=== PATIENT | female | born 1950 | race Caucasian/White ===

== ENCOUNTER 2020-05-13 15:15 | Inpatient (IN) | payer MEDICARE, OTHER, SELFPAY ==
[2020-05-13] VITALS (8 sets, daily range): BP systolic 102–123; BP diastolic 53–90; PULSE 71–120; RESP 16–28; TEMP 37–37.1; O2SAT 87–96; BMI 24.1
--- NOTE | ~2020-05-13 | XR_ITS ---
EXAMINATION: XR CHEST CLINICAL INFORMATION: Hypoxia. COMPARISON: CTA chest dated 05/13/2020. TECHNIQUE: Frontal view of the chest was obtained. FINDINGS: Small bilateral pleural effusions, significantly decreased when compared to the prior examination. Adjacent atelectasis versus infiltrates. No pneumothorax. Stable cardiomediastinal silhouette. XR/XR chest 1V IMPRESSION: Small bilateral pleural effusions with adjacent atelectasis versus infiltrates, decreased when compared to the recent chest CT.
--- NOTE | ~2020-05-13 | XR_ITS ---
EXAMINATION: XR FOOT, RIGHT CLINICAL INFORMATION: Distal gangrene. Concern for bone erosion. COMPARISON: None TECHNIQUE: 2 views of the right foot. FINDINGS: There is soft tissue swelling at the great toe. There is almost complete loss of bone of the distal phalange of the great toe. The distal phalanges is subluxed dorsally. There is also bone erosion of the proximal phalanges at the IP joint at the medial side of the bone consistent with osteomyelitis. This portion of bone lies adjacent to the skin surface and there may be ulceration of the skin in this area. Clinically correlate. XR/XR foot RT 2V IMPRESSION: Loss of bone of the distal phalanx and focal erosion of the proximal phalanx of great toe consistent with osteomyelitis.
--- NOTE | ~2020-05-13 | US_ITS ---
EXAMINATION: ULTRASOUND-GUIDED RIGHT THORACENTESIS. CLINICAL INFORMATION: Bilateral pleural effusion right greater than left. COMPARISON: CT chest 05/22/2020 TECHNIQUE: Following explaining ultrasound-guided thoracentesis procedure, benefits and risk, a written consent was obtained. Patient was placed upright sitting on ultrasound stretcher and preliminary ultrasound imaging was obtained through both posterior chest. There was increased fluid seen in the right chest. An appropriate site was selected and marked on the right posterior chest along the infrascapular line. The marked site was cleaned and draped in usual sterile manner. 1% lidocaine was injected at puncture site. Through a small skin incision a 5 [place] StepsAway catheter was advanced into right pleural fluid. After observing fluid return, a 50 mL syringe was attached and fluid aspirated for laboratory evaluation. Subsequently the catheter was connected to vacuum bottle via connecting cannula. After obtaining all fluid and observing no fluid remaining by ultrasound, catheter was withdrawn making sure no air leaked in by application of gauze coated with ultrasound gel. The area around the puncture site was cleaned and a sterile Band-Aid applied. Patient tolerated procedure extremely well. A chest x-ray inspiration and expiration was to be obtained portably. FINDINGS: On preliminary ultrasound imaging there is bilateral moderate pleural effusions right greater than left. Ultrasound-guided right thoracentesis performed with approximately 1000 mL of clear yellowish fluid was removed. Some of this fluid was sent to lab as requested by referring physician. US/US thoracentesis IMPRESSION: Successful ultrasound-guided right thoracentesis performed. There are no immediate complications.
--- NOTE | ~2020-05-13 | XR_ITS ---
EXAMINATION: XR CHEST CLINICAL INFORMATION: Shortness of breath. COMPARISON: Chest 04/30/2017 TECHNIQUE: Frontal view of the chest was obtained. FINDINGS: There is bibasilar haziness likely greater on the right from pleural effusion and underlying atelectasis. There is minimal bilateral apical parenchymal scarring and apical pleural thickening. The upper lungs are clear. Heart size and pulmonary vascularity is normal. No gross bony abnormality seen. XR/XR chest 1V IMPRESSION: Bilateral pleural effusions slightly greater on the right with underlying atelectasis.
--- NOTE | ~2020-05-13 | CT_ITS ---
EXAMINATION: CT ANGIOGRAM OF THE CHEST WITH AND WITHOUT CONTRAST (CT PULMONARY ANGIOGRAM FOR PE) CLINICAL INFORMATION: Evaluate for persistent hypoxia. Rule out PE. COMPARISON: Chest x-ray earlier today. CTA chest 05/13/2020 TECHNIQUE: Prior to contrast administration, noncontrast localization images were obtained. Subsequently, multidetector volumetric imaging was performed from the thoracic inlet to below the diaphragms following the administration of 65 mL Omnipaque 350 intravenous contrast. No contrast reaction reported Sagittal, coronal, and MIP oblique sagittal reformatted images were obtained on the CT workstation, uploaded to PACS, and reviewed. This CT examination was performed using dose optimization techniques as appropriate, variously including the following: *Automated exposure control *Adjustment of mA and/or kV according to patient size (this includes techniques or standardized protocols for targeted exams where dose is matched to indication/reason for exam; i.e. extremities or head) *Use of iterative reconstruction technique Total exam dose-length product 283 mGy-cm FINDINGS: QUALITY OF STUDY/CONTRAST BOLUS: Fair. PULMONARY ARTERIES: No central pulmonary embolus. There is contrast underfilling of the distal pulmonary arteries particularly to the lower lobes but no filling defects seen. THORACIC AORTA: There is poor contrast opacification of the thoracic aorta but no aneurysm or dissection. LUNG: Again seen is a background of severe emphysema with worsening near complete collapse of the right lower lobe and similar atelectasis of the left lower lobe. . PLEURA: Moderate bilateral pleural effusions, right greater than left, similar on the right, slightly increased on the left. MEDIASTINUM: Heart size upper limits of normal. The right atrium and right ventricle are significantly enlarged. No hilar or mediastinal lymphadenopathy. No evidence of septal bowing or right heart strain. CHEST WALL/AXILLA: There is contrast opacification of innumerable collaterals in the left chest and mediastinum. No axillary lymphadenopathy. Severe anasarca with a large volume of fluid partially imaged along the upper abdomen/lower chest bilaterally. OSSEOUS STRUCTURES: Multilevel degenerative changes. No acute or suspicious osseous abnormality. UPPER ABDOMEN: Small volume of ascites is present adjacent the liver. The liver has a nodular contour consistent with cirrhosis. There is reflux of contrast into the IVC hepatic veins suggesting elevated right heart pressures. CT/CT angio chest IMPRESSION: No pulmonary embolus seen. Moderate bilateral pleural effusions, similar on the right, slightly increased on the left. There is worsened near complete collapse of the right lower lobe and a similar degree of atelectasis of the left lower lobe. There is reflux of contrast into the hepatic veins consistent with elevated right heart pressures. Moreover, there is right atrial and ventricular enlargement. Also seen is evidence of third spacing with ascites and anasarca. VTE: negative
--- NOTE | ~2020-05-13 | CT_ITS ---
EXAMINATION: CT ANGIOGRAM OF THE CHEST WITH AND WITHOUT CONTRAST (CT PULMONARY ANGIOGRAM FOR PE) CLINICAL INFORMATION: Reason for Exam sob ?PE COMPARISON: Chest radiograph earlier today TECHNIQUE: Prior to contrast administration, noncontrast localization images were obtained. Subsequently, multidetector volumetric imaging was performed from the thoracic inlet to below the diaphragms following the administration of 57 mL Omnipaque 350 intravenous contrast. No contrast reaction reported Sagittal, coronal, and MIP oblique sagittal reformatted images were obtained on the CT workstation, uploaded to PACS, and reviewed. This CT examination was performed using dose optimization techniques as appropriate, variously including the following: *Automated exposure control *Adjustment of mA and/or kV according to patient size (this includes techniques or standardized protocols for targeted exams where dose is matched to indication/reason for exam; i.e. extremities or head) *Use of iterative reconstruction technique Total exam dose-length product 681 mGy-cm FINDINGS: QUALITY OF STUDY/CONTRAST BOLUS: Satisfactory. PULMONARY ARTERIES: No central or segmental pulmonary emboli. THORACIC AORTA: No aneurysm or dissection. LUNG: Changes of COPD are present. In addition, some interstitial prominence is seen along with prominent septa, suggesting underlying edema PLEURA: Moderate sized bilateral pleural effusions are present MEDIASTINUM: There is mild cardiac enlargement. With a markedly enlarged right atrium and right ventricle. No pericardial effusion. No hilar or mediastinal lymphadenopathy. No evidence of septal bowing or right heart strain. CHEST WALL/AXILLA: No axillary or internal mammary lymphadenopathy. OSSEOUS STRUCTURES: No acute or suspicious osseous abnormality. UPPER ABDOMEN: Unremarkable. There is moderate reflux of contrast into the IVC hepatic veins suggesting elevated right heart pressures. CT/CT angio chest PE protocol IMPRESSION: 1. No pulmonary emboli 2. COPD with cardiomegaly and interstitial edema raising question of CHF 3. Markedly enlarged right atria right ventricle with reflux of contrast into the IVC and hepatic veins consistent with elevated right heart pressures VTE: negative
--- NOTE | ~2020-05-13 | XR_ITS ---
EXAMINATION: XR CHEST CLINICAL INFORMATION: Post right thoracentesis. COMPARISON: CT chest 05/22/2020 TECHNIQUE: 2 views of the chest were obtained. FINDINGS: Status post right thoracentesis with complete resolution of pleural effusion. There is no visible pneumothorax. There is a [id number] left pleural effusion with underlying atelectasis. The heart size and pulmonary vascularity is normal. No gross bony abnormality seen. XR/XR chest 2V IMPRESSION: Status post right thoracentesis. There is no visible pneumothorax. There right pleural effusion has resolved. There is a left-sided small pleural effusion with underlying atelectasis, unchanged to previous study.
--- NOTE | ~2020-05-13 | XR_ITS ---
EXAMINATION: XR CHEST CLINICAL INFORMATION: Persistent hypoxia. COMPARISON: Chest 05/14/2020 TECHNIQUE: Frontal view of the chest was obtained. FINDINGS: There are bilateral pleural effusions right greater than left with bibasilar atelectasis. Upper lungs are clear. The heart size is normal. Pulmonary vascularity is normal. No gross bony abnormality seen. XR/XR chest 1V IMPRESSION: Small bilateral pleural effusions right greater than left with bibasilar atelectasis. No major change from 05/14/2020.
--- NOTE | ~2020-05-13 | US_ITS ---
EXAMINATION: US NONINVASIVE ASSESSMENT OF THE BILATERAL LOWER EXTREMITIES WITH ARTERIAL DUPLEX AND ANKLE BRACHIAL INDICES (ABIS) CLINICAL INFORMATION: Nonhealing ulcer COMPARISON: None TECHNIQUE: Duplex Doppler techniques with waveform analysis and measurement of velocities in the common femoral, profunda femoris, superficial femoral, popliteal and tibial arteries were performed. In addition, ankle pulse volume recordings, ankle pressure measurements and ankle brachial indices were obtained of the left lower extremity arterial system. The study was performed only at rest. FINDINGS: NONINVASIVE ASSESSMENT OF THE ARTERIES OF BILATERAL LOWER EXTREMITIES WITH ABIs: RIGHT LEG: Ankle-brachial index: 0.99 Ankle PVR: Abnormal BRONSON Reference: 0.9 - 1.4 = normal - no significant arterial disease 0.7 - 0.89 = mild peripheral arterial disease 0.51 - 0.69 = moderate peripheral arterial disease ? 0.50 = severe peripheral arterial disease RIGHT LOWER EXTREMITY DUPLEX ULTRASOUND: Common femoral artery: 93.8 cm/s. Diastolic flow reversal: Triphasic Profunda femoris artery: 79.1 cm/s. Diastolic flow reversal: Triphasic Superficial femoral artery (proximal): 51.1 cm/s. Diastolic flow reversal: Triphasic Superficial femoral artery (mid): 66.3 cm/s. Diastolic flow reversal: Triphasic Superficial femoral artery (distal): 59.9 cm/s. Diastolic flow reversal: Triphasic Popliteal artery: 27.6 cm/s Diastolic flow reversal: Triphasic Posterior tibial artery: 24.4 cm/s Diastolic flow reversal: Monophasic LEFT LEG: Ankle-brachial index: 0.85 Left ankle PVR: Abnormal BRONSON Reference: 0.9 - 1.4 = normal - no significant arterial disease 0.7 - 0.89 = mild peripheral arterial disease 0.51 - 0.69 = moderate peripheral arterial disease ? 0.50 = severe peripheral arterial disease LEFT LOWER EXTREMITY DUPLEX ULTRASOUND: Common femoral artery: 78.8 cm/s. Diastolic flow reversal: Triphasic Profunda femoris artery: 56.4 cm/s. Diastolic flow reversal: Triphasic Superficial femoral artery (proximal): 58.8 cm/s. Diastolic flow reversal: Triphasic Superficial femoral artery (mid): 69.0 cm/s. Diastolic flow reversal: Triphasic Superficial femoral artery (distal): 37.0 cm/s. Diastolic flow reversal: Triphasic Popliteal artery: 29.9 cm/s Diastolic flow reversal: Triphasic Posterior tibial artery: 12.4 cm/s Diastolic flow reversal: Monophasic US/US arterial duplex LE BI IMPRESSION: 1. The arteries to the lower extremities are patent bilaterally. 2. BRONSON on the right is normal at 0.99. BRONSON on the left demonstrates mild peripheral arterial disease at 0.85.
--- NOTE | 2020-05-13 15:30 | PC.NURSE ---
pt from home for shortness of breath. She arrives wearing thin cotton gloves. Gloves are removed to reveal necrotic fingers, Index finger and thumb of left hand intact but purple, other fingers are shriveled or missing. Right hand ring finger shriveled, other fingers and thumb intact but purple/blue in color. Pt has socks covering toes, swelling of bilateral lower extremities with redness. Great toes to bilateral feet are black with bone visible. All remaining toes to right foot are black with redness surrounding. Toes of left foot same as right, black with redness extending from toes into foot. Oxygen saturation 86% on 4 liters, pt reports shortness of breath. She is very anxious.
--- NOTE | 2020-05-13 15:50 | ECG_ITS ---
Test Reason : WEAKNESS Blood Pressure : / mmHG Vent. Rate : 110 BPM Atrial Rate : 110 BPM P-R Int : 136 ms QRS Dur : 080 ms QT Int : 320 ms P-R-T Axes : 070 136 024 degrees QTc Int : 433 ms Poor data quality Sinus tachycardia with Fusion complexes Right axis deviation Pulmonary disease pattern Possible Right ventricular hypertrophy Septal infarct , age undetermined Abnormal ECG No previous ECGs available Referred By: Nikolay Caal Electronically Signed By:JT LOPEZ MD
[2020-05-13 16:12] LABS: MANUAL DIFF FLAG NO
[2020-05-13 16:18] LABS: Basophils Absolute Auto 0.1 X10*3/uL (0.0-0.2); Basophils Percent Auto 0.5 % (0-2); Eosinophils Absolute Auto 0.1 X10*3/uL (0.0-0.4); Eosinophils Percent Auto 0.7 % (0-4); Hematocrit 48.2 % (37-47); Imm Gran Abs Auto 0.07 X10*3/uL (0.00-0.03); Imm Gran Pct Auto 0.6 % (0.0-0.4); Lymphocytes Absolute Auto 1.2 X10*3/uL (1.2-4.9); Lymphocytes Percent Auto 10.4 % (20-40); Mean Corpuscular HGB Conc 31.1 g/dl (31.0-35.0); Mean Corpuscular Hemoglobin 29.8 pg (27.0-33.0); Mean Corpuscular Volume 95.8 fL (80-98); Mean Platelet Volume 10.6 fL (9.4-12.3); Monocytes Absolute Auto 0.7 X10*3/uL (0.1-1.2); Monocytes Percent Auto 6.1 % (2-11); NRBC Pct Auto 0.3 /100WBC (0.0-0.2); Neutrophils Percent Auto 81.7 % (45-73); Platelet Count 441 X10*3/uL (160-400); Red Blood Count 5.03 X10*6/uL (4.20-5.50); Red Cell Distribution Width 15.9 % (11.0-16.0)
[2020-05-13] MEDS: LORazepam 2 MG/ML VIAL 1 MG IVPUSH ×2 (16:24→18:33)
[2020-05-13 16:31] LABS: INTERNATIONAL NORM RATIO 1.3 (0.9-1.1); Prothrombin Time 15.1 SEC (10.8-13.0)
[2020-05-13 16:33] LABS: Partial Thromboplastin Time 38.6 SEC (24.1-38.0)
[2020-05-13 16:35] LABS: COVID-19 Test Negative (Negative); IDNOW Serial# 9DD0AD1C
[2020-05-13 16:40] LABS: Alanine Aminotransferase 15 U/L (0-31); Albumin Level 3.3 g/dL (3.5-5.0); Alkaline Phosphatase 250 U/L (39-117); Anion Gap 16 (12-20); Aspartate Amino Transferase 26 U/L (5-31); Bilirubin Total 0.8 mg/dL (0.0-1.0); Blood Urea Nitrogen 30 mg/dL (9-16); Calcium 9.1 mg/dL (8.4-10.2); Carbon Dioxide 20 mmol/L (22-29); Chloride 109 mmol/L (96-108); Creatinine Clr Calc Pharmacy 43.2; Estimated Glomerular Filt Rate 51; Glucose Random 116 mg/dL (60-115); Potassium 4.9 mmol/L (3.3-5.1); Sodium 140 mmol/L (135-145)
[2020-05-13 16:55] LABS: Troponin-I High Sensitivity 40.9 ng/L (<3.5-17.0)
[2020-05-13 16:56] LABS: Lactic Acid 2.4 mmol/L (0.5-2.0)
--- NOTE | 2020-05-13 17:53 | ED.GENADULT ---
HPI - General Adult General Chief complaint: Dyspnea Stated complaint: diff breathing Time Seen by Provider: 05/13/20 15:49 Source: patient Mode of arrival: EMS Limitations: no limitations History of Present Illness HPI narrative: 69-year-old female who presents emergency department for evaluation of shortness of breath. The patient states she has had intermittent shortness of breath for approximately 1 and half weeks. She states that today at around 1:00 p.m. she was eating lunch, shortly after eating she became short of breath. She states that the shortness of breath persisted and got worse, she became anxious and called an ambulance. She denied fever, chills, chest pain, nausea, vomiting, abdominal pain, myalgias, arthralgias, change in her bowel movements. 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 She states that her necrotic toes have not changed and that they are not bothering her in any way. Related Data Allergies Allergy/AdvReac Type Severity Reaction Status Date / Time No Known Allergies Allergy Verified 05/13/20 15:49 Review of Systems Review of Systems: Yes all other systems are reviewed and are negative PMFSH Past Medical History PMF Narrative: The patient lives with her family. She states that she is a former smoker and stop smoking 3 years prior, she has a greater than 20 pack-year history of smoking, she drinks 1 glass of wine with dinner daily, she denies drug use. 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 Social History Social History Alcohol intake: former Smoking Status: Former smoker Smoked in Last 30 Days: No Use of substances other than those prescribed or required for medical reasons: No Advance Directives: No Advance Directives Information Provided: No Physical Exam Vital Signs: Vital Signs: Last Vital Signs Temp 98.8 F 05/13/20 15:23 Pulse 71 05/13/20 17:50 Resp 16 05/13/20 17:50 BP 112/53 L 05/13/20 17:50 Pulse Ox 92 05/13/20 17:50 Body Mass Index 24.1 Const: General: cooperative Orientation/consciousness: oriented to person and oriented to place Limitations: no limitations HENMT: Head: Yes normal to inspection, Yes normocephalic and Yes atraumatic Ears: external ears normal General nose exam: Normal external nose present Face and sinus: Yes normal facial exam Mouth: Normal oral and palatal mucosa present Throat: Yes posterior oropharynx normal Eyes: Periorbital: periorbital findings normal Eyelids: Yes eyelids normal Conjunctivae: conjunctivae normal Sclerae: sclerae normal Corneas: corneas normal Pupils: Equal, round and reactive pupils present Direct Ophthalmoscopy: normal light reflex Neck: Neck: Yes full ROM, Yes no lymphadenopathy, Yes no meningeal signs, Yes trachea midline and Yes supple Chest: Chest palpation & inspection: normal inspection of the chest and normal palpation of entire chest wall Resp: Effort & Inspection: normal respiratory effort and able to speak in complete sentences Auscultation: clear to auscultation bilaterally Cardio: Rate: regular rate Rhythm: regular rhythm Heart sounds: S1 normal heart sound present, S2 normal heart sound present and no murmurs GI: Inspection: Yes normal to inspection Palpation (GI): Soft to palpation, nontender, no guarding, not rigid and No hepatosplenomegaly present : General: Yes no CVA tenderness Back/Spine/Pelvis: Back: no CVA tenderness Cervical Spine: normal cervical lordosis Thoracic/Lumbar Spine: thoracic and lumbar spine normal to inspection Skin: Lesions: no lesions Rashes: no rashes Wounds: no wounds Neuro: General: oriented to person, oriented to place and no meningeal signs Cranial nerves: Yes CN's II-XII intact bilaterally and Yes Equal, round and reactive pupils present Cognition (Neuro): normal cognition Motor exam (neuro): 5/5 motor strength present throughout Extrem: Other: The patient has damage to the fingers of her hand and 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 Patient's physical examination did reveal pitting edema and rales at the bases. I ordered a cardiac and septic workup on the patient. The patient does appear to be anxious and she was ordered to get Ativan 1 mg IV. 1818: the patient's laboratory evaluation [place] [address], elevated platelet count of 414,000. BUN was elevated at 30 with a normal creatinine of 1.06. Lactic acid was elevated 2.4. Alk-phos is elevated to 50. Troponin was elevated at 40.9. Repeat 3 hour troponin is pending. The patient's concerning for bilateral pleural effusions, given her peripheral edema I suspect that she has pulmonary edema however I will obtain a CT angiogram PE protocol to rule out pulmonary embolism. The patient did get some improvement with Ativan 1 mg IV, her anxiety is returning therefore she was ordered to get Ativan 0.5 mg IV. At the end of my shift, the CT scan is pending, the patient's care was turned over to my colleague, Dr. Kent. Medical Decision Making Lab Data Result diagrams: 05/13/20 16:03 05/13/20 16:03 Labs: Lab Results 05/13/20 05/13/20 05/13/20 Range/Units 16:03 16:03 16:03 WBC 11.0 H (4.8-10.8) X10*3/uL RBC 5.03 (4.20-5.50) X10*6/uL Hgb 15.0 (12.0-16.0) g/dl Hct 48.2 H (37-47) % MCV 95.8 (80-98) fL MCH 29.8 (27.0-33.0) pg MCHC 31.1 (31.0-35.0) g/dl RDW 15.9 (11.0-16.0) % Plt Count 441 H (160-400) X10*3/uL MPV 10.6 (9.4-12.3) fL Immature Gran % (Auto) 0.6 H (0.0-0.4) % Neut % (Auto) 81.7 H (45-73) % Lymph % (Auto) 10.4 L (20-40) % [place] % (Auto) 6.1 (2-11) % Eos % (Auto) 0.7 (0-4) % Baso % (Auto) 0.5 (0-2) % Lymph # (Auto) 1.2 (1.2-4.9) X10*3/uL [place] # (Auto) 0.7 (0.1-1.2) X10*3/uL Eos # (Auto) 0.1 (0.0-0.4) X10*3/uL Baso # (Auto) 0.1 (0.0-0.2) X10*3/uL Abs Immat Gran (auto) 0.07 H (0.00-0.03) X10*3/uL Absolute Neuts (auto) 9.0 H (2.0-8.3) X10*3/uL Absolute Nucleated RBC 0.030 H (0.0-0.012) X10*3/uL Nucleated RBC % (auto) 0.3 H (0.0-0.2) /100WBC PT 15.1 H (10.8-13.0) SEC INR 1.3 H (0.9-1.1) APTT 38.6 H (24.1-38.0) SEC Sodium 140 (135-145) mmol/L Potassium 4.9 (3.3-5.1) mmol/L Chloride 109 H (96-108) mmol/L Carbon Dioxide 20 L (22-29) mmol/L Anion Gap 16 (12-20) BUN 30 H (9-16) mg/dL Creatinine 1.06 (0.5-1.4) mg/dL Estim Creat Clear Calc 43.2 Estimated GFR 51 Random Glucose 116 H (60-115) mg/dL Lactic Acid (0.5-2.0) mmol/L Calcium 9.1 (8.4-10.2) mg/dL Total Bilirubin 0.8 (0.0-1.0) mg/dL AST 26 (5-31) U/L ALT 15 (0-31) U/L Alkaline Phosphatase 250 H (39-117) U/L Troponin I High Sens (<3.5-17.0) ng/L Total Protein 7.0 (6.5-8.0) g/dL Albumin 3.3 L (3.5-5.0) g/dL COVID-19 (TAZ) (Negative) COVID-19 Clin Com 05/13/20 05/13/20 05/13/20 Range/Units 16:03 16:03 16:03 WBC (4.8-10.8) X10*3/uL RBC (4.20-5.50) X10*6/uL Hgb (12.0-16.0) g/dl Hct (37-47) % MCV (80-98) fL MCH (27.0-33.0) pg MCHC (31.0-35.0) g/dl RDW (11.0-16.0) % Plt Count (160-400) X10*3/uL MPV (9.4-12.3) fL Immature Gran % (Auto) (0.0-0.4) % Neut % (Auto) (45-73) % Lymph % (Auto) (20-40) % [place] % (Auto) (2-11) % Eos % (Auto) (0-4) % Baso % (Auto) (0-2) % Lymph # (Auto) (1.2-4.9) X10*3/uL [place] # (Auto) (0.1-1.2) X10*3/uL Eos # (Auto) (0.0-0.4) X10*3/uL Baso # (Auto) (0.0-0.2) X10*3/uL Abs Immat Gran (auto) (0.00-0.03) X10*3/uL Absolute Neuts (auto) (2.0-8.3) X10*3/uL Absolute Nucleated RBC (0.0-0.012) X10*3/uL Nucleated RBC % (auto) (0.0-0.2) /100WBC PT (10.8-13.0) SEC INR (0.9-1.1) APTT (24.1-38.0) SEC Sodium (135-145) mmol/L Potassium (3.3-5.1) mmol/L Chloride (96-108) mmol/L Carbon Dioxide (22-29) mmol/L Anion Gap (12-20) BUN (9-16) mg/dL Creatinine (0.5-1.4) mg/dL Estim Creat Clear Calc Estimated GFR Random Glucose (60-115) mg/dL Lactic Acid 2.4 H* (0.5-2.0) mmol/L Calcium (8.4-10.2) mg/dL Total Bilirubin (0.0-1.0) mg/dL AST (5-31) U/L ALT (0-31) U/L Alkaline Phosphatase (39-117) U/L Troponin I High Sens 40.9 H (<3.5-17.0) ng/L Total Protein (6.5-8.0) g/dL Albumin (3.5-5.0) g/dL COVID-19 (TAZ) Negative (Negative) COVID-19 Clin Com See Note
[2020-05-13 18:09] LABS: Reflex Lactate? Lactic Acid Added
[2020-05-13] MEDS: Furosemide 20 MG/2 ML VIAL IVPUSH (18:33)
--- NOTE | 2020-05-13 18:43 | PC.NURSE ---
son at bedside, pt awake, drowsy after medication with ativan. VS stable.
[2020-05-13 19:22] LABS: B Type Natriuretic Peptide 1310 pg/mL (<100)
--- NOTE | 2020-05-13 19:33 | PC.NURSE ---
PT CHANGED OUT OF HEAVILY SOAKED BRIEF FROM HOME. LINEN UNDERNEATH HER CHANGED.
[2020-05-13 20:20] LABS: Troponin-I High Sensitivity 37.9 ng/L (<3.5-17.0); ~Lactic Acid-LAB USE ONLY 2.1 mmol/L (0.5-2.0)
--- NOTE | 2020-05-13 20:42 | PC.NURSE ---
alba placed, need to monitor output following lasix. pt off unit to ct scan. difficulty obtaining labs. pt's spo2 sensor on forehead, extremities cool. pt's spo2 60's but not a reliable waveform. pt repositioned upright and spo2 improved to 86%. pt's o2 increased to 6lpm and spo2 improved to 95%.
[2020-05-13 21:01] LABS: Glucose Urine UA NEG (NEG); Leukocyte Esterase Urine NEG (NEG); Nitrite Urine NEG (NEG); PH 5.5 (5.0-8.0); Specific Gravity - Urine 1.015 (1.005-1.025); Urine Blood NEG (NEG); Urine Ketones NEG (NEG); Urine Protein NEG (NEG-TRACE)
[2020-05-13 21:08] LABS: Appearance Urine CLEAR; Color Urine YELLOW
[2020-05-13 21:10] LABS: Venous Blood Gas Refer to POC result
[2020-05-13 21:11] LABS: VBG Base Excess -4.8 mmol/L; VBG HCO3 17 mmol/L (22-26); VBG pCO2 26 mmHg; VBG pH 7.42 (7.32-7.43); VBG pO2 50 mmHg
[2020-05-13 21:22] LABS: Reflex Lactate? 2 Y
--- NOTE | 2020-05-13 21:33 | PC.NURSE ---
difficult to obtain accurate spo2 on patient. pt's spo2 improves when repositioned to upright seated position.
[2020-05-13] MEDS: Piperacillin Sodium/Tazobactam 3.375 GM in 0.9 % Sodium Chloride 50 ML IV (22:22)
[2020-05-13] MEDS: methylPREDNISolone Sod Succ 125 MG/2 ML VIAL IVPUSH (23:06)
--- NOTE | 2020-05-13 23:10 | PM.IMHP ---
History of Present Illness Date of Service: 05/13/20 Chief Complaint: SOB 69-year-old female with a past medical history of Buerger disease, 20 pack-year history of smoking, gangrene of toes and fingers; COPD, presented to the hospital with chief complaint of shortness of breath. Patient is a poor historian. Patient reported that over the past 1-2 weeks he has been having shortness of breath which has been gradually worsening associated dyspnea on exertion. Denies any chest pain lightheadedness dizziness. Today she had severe shortness of breath hence decided to come to the hospital for further help. Patient mentions she has been having gangrene of her toes and fingers and has not been bothering her. Denies any fever chills cough. Denies any recent travel sick contacts. Denies any GI or symptoms. Review of all other systems is negative except mentioned above ER course: For ER team patient noted to be tachypneic and hypoxic on presentation requiring supplemental oxygen; patient had chest x-ray which showed bilateral pleural effusion; CT angio of the chest was done which showed no evidence of pulmonary embolism but noted findings consistent with CHF/right heart pressures- Patient was given Lasix, albuterol nebulizations, Solu-Medrol. Patient noted to have elevated lactate; x-ray of the foot showed findings consistent with osteomyelitis and mild soft tissue swelling. Patient was given Zosyn and blood cultures were sent. Admitted to the hospital for further management. [facility] Medical History Talamantes disease Osteomyelitis Pleural effusion Social History Household Members: Family Housing: Apartment Alcohol intake: former Smoking Status: Former smoker service: No Current occupational status: retired Meds Allergies Allergy/AdvReac Type Severity Reaction Status Date / Time No Known Allergies Allergy Verified 05/13/20 15:49 Active Medications: Current Medications Generic Name Dose Route Start Last Admin Trade Name Freq PRN Reason Stop Dose Admin Acetaminophen 650 mg 05/13/20 23:02 Acetaminophen 325 Mg Tablet PO Q6H PRN Pain, Mild (Pain Scale 1-3) Albuterol/Ipratropium 3 ml 05/14/20 08:00 Albuterol/Iprat 2.5/0.5mg 3 Ml Ampul.Neb INHALE RQ6H WHILE AWAKE [place] Albuterol/Ipratropium 3 ml 05/14/20 08:00 Albuterol/Iprat 2.5/0.5mg 3 Ml Ampul.Neb INHALE RQ4H WHILE AWAKE [place] Heparin Sodium (Porcine) 5,000 unit 05/13/20 23:15 Heparin Sodium,Porcine 5,000 Unit/Ml Vial SUBCUT Q8H [facility] Piperacillin Sod/Tazobactam 50 mls @ 100 mls/hr 05/13/20 23:15 Sod 3.375 gm/ Sodium Chloride IV Q6H [facility] Sodium Chloride 3 ml 05/14/20 00:00 0.9 % Sodium Chloride Flush 3 Ml Syringe IVFLUSH QSHIFT [facility] Home Medications Medication Instructions Recorded Confirmed Last Taken Type aspirin 81 mg PO DAILY 05/13/20 05/13/20 Unknown History Physical Exam Vital Signs and Narrative: Vital Signs: Last Vital Signs Temp 98.7 F 05/13/20 21:25 Pulse 114 H 05/13/20 22:38 Resp 28 H 05/13/20 22:38 BP 119/81 05/13/20 22:38 Pulse Ox 87 L 05/13/20 22:38 Body Mass Index 24.1 Gen: Appears be in no acute distress; speaks in full sentences HEENT: NCAT, Moist mucosa. Pulmonary: Slightly diminished breath sounds CVS: Normal S1-S2 Abdomen: BS+, Soft, Nontender Extremities: Warm well perfused; noted gangrene of the toes and fingers.; loaded soft tissue swelling around the toes. No crepitus noticed. Neuro: Alert and awake. Grossly nonfocal Results Labs CBC and Chem 7: 05/21/20 06:14 05/23/20 06:21 Labs: Laboratory Results - last 24 hr 05/13/20 05/13/20 05/13/20 16:03 16:03 16:03 MCV 95.8 MCH 29.8 MCHC 31.1 RDW 15.9 Plt Count 441 H MPV 10.6 Immature Gran % (Auto) 0.6 H Neut % (Auto) 81.7 H Lymph % (Auto) 10.4 L [place] % (Auto) 6.1 Eos % (Auto) 0.7 Baso % (Auto) 0.5 Lymph # (Auto) 1.2 [place] # (Auto) 0.7 Eos # (Auto) 0.1 Baso # (Auto) 0.1 Abs Immat Gran (auto) 0.07 H Absolute Neuts (auto) 9.0 H Absolute Nucleated RBC 0.030 H Nucleated RBC % (auto) 0.3 H PT 15.1 H INR 1.3 H APTT 38.6 H VBG pH VBG pCO2 VBG pO2 VBG HCO3 VBG O2 Saturation VBG Base Excess Anion Gap 16 Estim Creat Clear Calc 43.2 Estimated GFR 51 Random Glucose 116 H Lactic Acid Lactic Acid Fup @ 2Hr Calcium 9.1 Total Bilirubin 0.8 AST 26 ALT 15 Alkaline Phosphatase 250 H Troponin I High Sens B-Natriuretic Peptide Total Protein 7.0 Albumin 3.3 L Urine Color Urine Appearance Urine pH Ur Specific [place] Urine Protein Urine Glucose (UA) Urine Ketones Urine Blood Urine Nitrite Ur Leukocyte Esterase COVID-19 (TAZ) COVID-Phot[employer]lect 05/13/20 05/13/20 05/13/20 16:03 16:03 16:03 MCV MCH MCHC RDW Plt Count MPV Immature Gran % (Auto) Neut % (Auto) Lymph % (Auto) [place] % (Auto) Eos % (Auto) Baso % (Auto) Lymph # (Auto) [place] # (Auto) Eos # (Auto) Baso # (Auto) Abs Immat Gran (auto) Absolute Neuts (auto) Absolute Nucleated RBC Nucleated RBC % (auto) PT INR APTT VBG pH VBG pCO2 VBG pO2 VBG HCO3 VBG O2 Saturation VBG Base Excess Anion Gap Estim Creat Clear Calc Estimated GFR Random Glucose Lactic Acid 2.4 H* Lactic Acid Fup @ 2Hr Calcium Total Bilirubin AST ALT Alkaline Phosphatase Troponin I High Sens 40.9 H B-Natriuretic Peptide 1310 H Total Protein Albumin Urine Color Urine Appearance Urine pH Ur Specific [place] Urine Protein Urine Glucose (UA) Urine Ketones Urine Blood Urine Nitrite Ur Leukocyte Esterase COVID-19 (TAZ) Negative COVID-19 [employer] See Note 05/13/20 05/13/20 05/13/20 18:56 18:56 20:52 MCV MCH MCHC RDW Plt Count MPV Immature Gran % (Auto) Neut % (Auto) Lymph % (Auto) [place] % (Auto) Eos % (Auto) Baso % (Auto) Lymph # (Auto) [place] # (Auto) Eos # (Auto) Baso # (Auto) Abs Immat Gran (auto) Absolute Neuts (auto) Absolute Nucleated RBC Nucleated RBC % (auto) PT INR APTT VBG pH VBG pCO2 VBG pO2 VBG HCO3 VBG O2 Saturation VBG Base Excess Anion Gap Estim Creat Clear Calc Estimated GFR Random Glucose Lactic Acid Lactic Acid Fup @ 2Hr 2.1 H* Calcium Total Bilirubin AST ALT Alkaline Phosphatase Troponin I High Sens 37.9 H B-Natriuretic Peptide Total Protein Albumin Urine Color YELLOW Urine Appearance CLEAR Urine pH 5.5 Ur Specific [place] 1.015 Urine Protein NEG Urine Glucose (UA) NEG Urine Ketones NEG Urine Blood NEG Urine Nitrite NEG Ur Leukocyte Esterase NEG COVID-19 (TAZ) COVID-19 [employer] 05/13/20 21:04 MCV MCH MCHC RDW Plt Count MPV Immature Gran % (Auto) Neut % (Auto) Lymph % (Auto) [place] % (Auto) Eos % (Auto) Baso % (Auto) Lymph # (Auto) [place] # (Auto) Eos # (Auto) Baso # (Auto) Abs Immat Gran (auto) Absolute Neuts (auto) Absolute Nucleated RBC Nucleated RBC % (auto) PT INR APTT VBG pH 7.42 VBG pCO2 26 VBG pO2 50 VBG HCO3 17 L VBG O2 Saturation 73.0 VBG Base Excess -4.8 Anion Gap Estim Creat Clear Calc Estimated GFR Random Glucose Lactic Acid Lactic Acid Fup @ 2Hr Calcium Total Bilirubin AST ALT Alkaline Phosphatase Troponin I High Sens B-Natriuretic Peptide Total Protein Albumin Urine Color Urine Appearance Urine pH Ur Specific [place] Urine Protein Urine Glucose (UA) Urine Ketones Urine Blood Urine Nitrite Ur Leukocyte Esterase COVID-19 (TAZ) COVID-19 [employer] Imaging Radiologist's Impressions: Impressions Chest X-Ray 05/13/20 15:50 IMPRESSION: Bilateral pleural effusions slightly greater on the right with underlying atelectasis. Chest CTA 05/13/20 19:34 IMPRESSION: 1. No pulmonary emboli 2. COPD with cardiomegaly and interstitial edema raising question of CHF 3. Markedly enlarged right atria right ventricle with reflux of contrast into the IVC and hepatic veins consistent with elevated right heart pressures VTE: negative Foot X-Ray 05/13/20 22:02 IMPRESSION: Loss of bone of the distal phalanx and focal erosion of the proximal phalanx of great toe consistent with osteomyelitis. Assessment and Plan (1) Congestive heart failure: Qualifiers: Heart failure chronicity: chronic Heart failure type: combined systolic and diastolic Qualified Code(s): I50.42 - Chronic combined systolic (congestive) and diastolic (congestive) heart failure Status: Acute 69-year-old female with a past medical history of Buergers disease, dose and fingers gangrene, COPD presented to the hospital with a chief complaint of shortness of breath. Noted to have new onset CHF. Acute hypoxic respiratory failure: Likely in the setting of CHF. Patient was given Lasix in the ER. Placed on supplemental oxygen. Speaks in full sentences. Will continue to monitor. New onset CHF: I&Os, daily weights. Telemetry. Troponins plateaued at 40->37; EKG nonischemic. Patient denies any chest pain. Echocardiogram. Cardiology consult. Judicious diuresis as the patient had elevated lactate. CT chest showed no evidence of pulmonary embolism or pneumonia. But noted fluid overload. COPD: Solumedrol TIDNebulizations standing and p.r.n. suppl oxygen-> goal saturation 93%. Morphine prn for anxiety/Breathing comfort; ABG shows Low Pco2; LActic acidosis: increasing; Multifactorial; Encouraged PO fluids. Gangrene of the toes and fingers: Foot x-ray shows findings consistent with osteomyelitis. Blood cultures were sent. Patient denies any pain, mentions that was have not been bothering her. Vitals are stable. No crepitus. Continue Vanc and Zosyn Consult Dr. Inocencio Cordova from vascular surgery for further recommendations.PAged Dr Cordova, awaiting reply Will also consult ID. Continue aspirin DVT prophylaxis: Subcu heparin Code status: Full code
[2020-05-13] MEDS: Albuterol Sulfate (0.083%) 2.5 MG/3 ML VIAL.NEB 5 MG INHALE (23:20)
[2020-05-13] MEDS: Albuterol/Iprat 2.5/0.5MG 3 ML AMPUL.NEB INHALE (23:21)
--- NOTE | 2020-05-13 23:48 | PC.NURSE ---
report given to rn, pt ready for transport.
[2020-05-14] VITALS (13 sets, daily range): BP systolic 103–130; BP diastolic 65–94; PULSE 112–124; RESP 20–24; TEMP 36.1–37.1; O2SAT 91–96; BMI 23.3
[2020-05-14 01:54] LABS: Lactic Acid 3.2 mmol/L (0.5-2.0)
[2020-05-14] MEDS: Heparin Sodium,Porcine 5,000 UNIT/ML VIAL 5000 UNIT SUBCUT ×4 (02:11→22:21)
[2020-05-14] MEDS: vancomycin HCL 1,000 MG in 0.9 % Sodium Chloride 250 ML 270 MG IV (02:11)
[2020-05-14] MEDS: 0.9 % Sodium Chloride Flush 3 ML SYRINGE IVFLUSH ×3 (02:12→15:17)
[2020-05-14 02:43] LABS: ABG Base Excess -6.9 mmol/L; ABG HCO3 14 mmol/L (22-26); ABG pCO2 19 mmHg (32-45); ABG pH 7.46 (7.35-7.45); ABG pO2 64 mmHg (83-108)
[2020-05-14 02:45] LABS: ABG Refer to POC result
[2020-05-14] MEDS: Morphine Sulfate 2 MG/ML CARTRIDGE 1 MG IVPUSH (03:11)
[2020-05-14 03:26] LABS: Reflex Lactate? Lactic Acid Added
[2020-05-14] MEDS: Piperacillin Sodium/Tazobactam 3.375 GM in 0.9 % Sodium Chloride 50 ML IV ×4 (04:11→22:22)
[2020-05-14 04:17] LABS: ~Lactic Acid-LAB USE ONLY 3.6 mmol/L (0.5-2.0)
--- NOTE | 2020-05-14 05:10 | PC.NURSE ---
PT arrived on the unit around 0000. On 15L 50% O2 via venti mask, sats are 81-90% depending on activity. Lactic acid redraw critical at 3.2, MD aware. Ordered zosyn and vancomycin and hold lasix. 2 HR redraw 3.6, instructed to encourage po fluid intake. PT co2 19.2 MD aware, ordered 1mg IVP. Pt resting now, will continue to monitor.
[2020-05-14] MEDS: methylPREDNISolone Sod Succ 40 MG/ML VIAL IVPUSH ×3 (05:50→22:21)
[2020-05-14 05:56] LABS: Reflex Lactate? 2 Y
[2020-05-14 06:28] LABS: Basophils Percent Auto 0.1 % (0-2); Imm Gran Abs Auto 0.07 X10*3/uL (0.00-0.03); Imm Gran Pct Auto 0.7 % (0.0-0.4); Lymphocytes Absolute Auto 0.7 X10*3/uL (1.2-4.9); Lymphocytes Percent Auto 6.7 % (20-40); MANUAL DIFF FLAG SCAN; Mean Corpuscular HGB Conc 29.8 g/dl (31.0-35.0); Mean Corpuscular Volume 97.3 fL (80-98); Mean Platelet Volume 10.7 fL (9.4-12.3); Monocytes Absolute Auto 0.2 X10*3/uL (0.1-1.2); Monocytes Percent Auto 1.6 % (2-11); Neutrophils Absolute Auto 9.2 X10*3/uL (2.0-8.3); Neutrophils Percent Auto 90.9 % (45-73); Platelet Count 370 X10*3/uL (160-400); Red Blood Count 4.83 X10*6/uL (4.20-5.50); Red Cell Distribution Width 15.9 % (11.0-16.0); SCAN SMEAR FLAG 1; White Blood Count 10.1 X10*3/uL (4.8-10.8)
[2020-05-14 06:50] LABS: SLIDE REVIEW VERIFIED
[2020-05-14 06:52] LABS: Anion Gap 18 (12-20); Blood Urea Nitrogen 27 mg/dL (9-16); Calcium 8.7 mg/dL (8.4-10.2); Carbon Dioxide 19 mmol/L (22-29); Chloride 108 mmol/L (96-108); Creatinine Clr Calc Pharmacy 40.2; Estimated Glomerular Filt Rate 47; Glucose Random 160 mg/dL (60-115); Potassium 4.3 mmol/L (3.3-5.1); Sodium 141 mmol/L (135-145)
[2020-05-14 07:24] LABS: ~Lactic Acid-LAB USE ONLY 3.9 mmol/L (0.5-2.0)
[2020-05-14] MEDS: Albuterol/Iprat 2.5/0.5MG 3 ML AMPUL.NEB INHALE ×6 (07:31→19:30)
[2020-05-14] MEDS: Aspirin Enteric Coated 81 MG TABLET.DR PO (08:28)
--- NOTE | 2020-05-14 10:17 | MHC.CM.PN ---
Addendum entered by Chantel Bravo RN 05/14/20 10:35: DISCHARGE PLAN HOME VS STR, FAMILY VS BLS TRANSPORT. PT WAS GIVEN PAMPHLET W/C PROVIDERS DUE TO LACK OF PCP AND OTHER PROVIDERS. Original Note: IMM 05/14/20, EMR REVIEWED, PT ADMITTED W/CHF, PVD AND GANGRENE OF TOES AND FINGERS, PT HAS CONSULTS FOR SURGICAL, CARDIOLOGY,ID AND PULMONOLGY PENDING, CM MET W/PT WHO HAD JUST WOKEN UP, PT IS ALERT AND ORIENTED AND REPORTS SHE LIVES WITH HER ADULT CHILDREN FERNANDO AND CARLOS, PT DENIES USE OF DME AND HOME SERVICES AND REPORTS SHE WAS INDEPENDENT AND WALKING UNTIL ABOUT A WEEK AGO WHEN HER FOOT GOT WORSE, R FOOT XRAY SHOWED OSTEOMYELITIS. PT DENIES HAVING ANY PCP OR OTHER SPECIALISTS AND REPORTS SHE SAW SOMEONE A LONG TIME AGO REGARDING HER FINGERS AND FEET AND THEY SAID THERE WAS NOTHING THEY COULD DO. HCP: PT DOES NOT HAVE A HCP AND DECLINES TO COMPLETE AT THIS TIME, PT UNSUR OF WHICH CHILD SHE WANTS TO LEAVE OUT DUE TO HAVING 3. PCP: NONE PT LIVES WITH: DAUGHTER CARLOS [phone] SON: [phone]
--- NOTE | 2020-05-14 10:31 | MHC.CM.PN ---
CM CONTACTED PT'S DAUGHTER CARLOS AT 10:28AM ([phone] WHOM PTLIVES TO VERIFY INFORMATION, PT'S DAUGHTER DOES VERIFY PT HAS NO PCP OR SPECIALISTS, HAS BEEN INDEPENDENT WITH CARE, AND AMBULATORY UNTIL ABOUT A WEEK AGO.
--- NOTE | 2020-05-14 10:50 | PM.EVENT ---
Event Note Date of Service: 05/14/20 Event Note: THIS PATIENT WAS SEEN BY ME THIS MORNING FOR PULMONARY CONSULTATION. I REVIEWED THE HISTORY, LAP TESTS AND RADIALOGIC FINDINGS . COMPLETE NOTE IS DICTATED. A: BILATERAL PLEURAL EFFUSION GREATER ON THE RIGHT SIDE MOST LIKELY SECONDARY TO CONGESTIVE HEART FAILURE. QUESTION OF THE PNEUMONIA RIGHT LOWER LOBE. CHRONIC OBSTRUCTIVE PULMONARY DISEASE, WITH POSSIBLE ACUTE EXACERBATION. BLOOD GAS STUDY CONSISTENT WITH HYPERVENTILATION AND RESPIRATORY ALKALOSIS. CHRONIC VASCULAR DISEASE WITH CHRONIC DRY GANGRENE OF THE FINGERS AND TOES. S T0 MYELITIS GREATER TOE LEFT FOOT . P: CONTINUE GENTLE DIURESIS, REPEAT CHEST X-RAY ON SATURDAY IF PLEURAL EFFUSIONS ARE NOT DECREASED IN SIZE THEN SHE SHOULD HAVE A THORACENTESIS OF THE RIGHT CHEST CHEST. OXYGEN SUPPLEMENTATION TO KEEP O2 SAT ABOVE 90%. NOTE THAT PATIENT IS NOT A CO2 RETAINER. DUONEB UPDRAFTS Q 6 HOURS WHILE AWAKE AND P.R.N.. ANTIBIOTICS MAINLY DIRECTED FOR OSTEOMYELITIS OF THE TOE BUT WOULD BE HELPFUL IN CASE SHE HAS ANY PNEUMONIA. IV SOLU-MEDROL 40 MG A DAY FOR A FEW DAYS THEN A SHORT COURSE OF PREDNISONE.
--- NOTE | 2020-05-14 11:38 | CONS_ITS ---
DATE OF SERVICE: 05/14/2020 HISTORY OF PRESENT ILLNESS: This 69-year-old female has been admitted since last night with increased shortness of breath for the last one and half week, shortness of breath has been gradually worsening. The patient has had no fever or chills and also denies any chest pain. The patient did have some lightheaded feeling. This patient tells me that back in January, she tested positive for COVID, but did not require any treatment and recovered at home. PAST MEDICAL HISTORY: Includes chronic heavy smoking, but quit a few years ago. She has known diagnosis of Buerger's disease with dry gangrene of the fingers as well as toes. She denies any pain in those fingers or toes. She has had no recent injury to the hands or feet. The patient denies any previous history of congestive heart failure. She has been treated for chronic obstructive pulmonary disease with bronchodilator inhalers, but not using on a regular basis. REVIEW OF SYSTEMS: Basically confined to the respiratory symptoms of increased shortness of breath for the last 2 weeks. She has marked generalized weakness, but she has been ambulating at home. Denies any significant pain in the hands or feet. Appetite is generally poor. No other specific symptoms. PERSONAL HISTORY: As noted above, she used to smoke 1 pack a day for more than 20 years, but quit a few years ago. PHYSICAL EXAMINATION: GENERAL: 69-year-old female of thin build, chronically sick looking, but she is alert and orientated, not in much distress at this time. VITAL SIGNS: Respiratory rate is 18, current O2 saturation is 93%. EAR, NOSE, THROAT: Examination not remarkable. NECK: Slight jugular venous distention is noted. Trachea in midline. No lymphadenopathy. CHEST: Percussion note is resonant except over the right lower lobe, there is dullness. PULMONARY: Breath sounds are distant and especially diminished over both basilar areas. No wheezes or rhonchi. CARDIAC: Sounds are distant. Rhythm regular. No murmurs. EXTREMITIES: No pitting edema. Her hands and legs are very thin with muscle wasting and there is obvious dry gangrene of the distal fingers as well as of the toes. DIAGNOSTIC DATA: Chest x-ray, this patient has bilateral pleural effusions, much greater on the right side, but no other abnormalities, and also has mild cardiomegaly. CTA of the chest shows no pulmonary embolism. Cardiomegaly. Bilateral pleural effusions, greater on the right side. There is some airway disease underlying the pleural effusion and may have some infiltrate in the right lower lobe area. Foot x-ray shows findings suggestive of osteomyelitis of the great toe on left side. LABORATORY DATA: White cell count 10.1, hemoglobin 14. Blood gases: Venous blood gas study on 05/13; pH 7.42, pCO2 of 26, and pO2 of 50. This morning, the arterial blood gases are as follows; pH 7.46, pCO2 of 19, and pO2 of 64. These results are suggestive of respiratory alkalosis secondary to hyperventilation. CLINICAL IMPRESSION: 1. Most likely, the patient's primary issue is congestive heart failure with bilateral pleural effusions. 2. Presence of underlying pneumonia especially in the right lower lobe cannot be ruled out. 3. Osteomyelitis of the great toe. 4. Chronic vascular disease with chronic dry gangrene of the fingers and the toes. 5. The patient most likely does have chronic obstructive pulmonary disease. RECOMMENDATIONS: 1. At this point, I would focus more on treatment of congestive heart failure with adequate diuresis. 2. Oxygen supplementation. 3. DuoNeb updrafts q.6 hours while awake would be helpful. 4. Antibiotics primarily for osteomyelitis of the left toe, but would be helpful if there is any possible pneumonia. 5. The patient should have repeat imaging in the next 2 days or so, and if the pleural effusion on the right side has not significantly decreased, then she should have diagnostic thoracentesis. 6. Vascular consultation. 7. The patient also should have echocardiogram. Thank you very much for asking me to see this patient. MD LI Chance/ELEN / [phone]
--- NOTE | 2020-05-14 11:47 | P.CONCA_ITS ---
History of Present Illness History of Present Illness Date of Service: 05/14/20 Requesting physician: Ortiz Dumont Consult reason: congestive heart failure Chief complaint: Sob Narrative: We were asked to see Radha in cardiology consultation today for new onset congestive heart failure. She is a 69-year-old woman has not seen primary care physician in many years, was diagnosed with Buerger's disease 3 years ago related to her smoking and since then she has stopped smoking but has not followed up with vascular surgery. She takes low-dose aspirin at home. No other medical problems as per her including hypertension diabetes. She came to the hospital with progressive increasing shortness of breath as well as shortness of breath lying down and bilateral lower extremity edema over the last 1-2 weeks. When she came to the hospital she was hypoxic, she was noted to have congestive heart failure based on CT scan and elevated BNP. She also has noted to have interstitial edema on the CT scan so has both left and right heart fail ure. She was diuresed and put on oxygen. Currently she says she sees extremely well. Oxygen saturations difficult to obtain due to her peripheral vascular disease related to the Buerger's disease. She says over the last 3 years she has stopped smoking. She denies any chest pain, palpitations, lightheadedness, syncope. She got 1 dose of Lasix in the ER and since then has not received any Lasix. She says she had good urine output with that. Review of Systems Constitutional: Constitutional: Reports no additional constitutional complaints Cardiovascular: Cardiovascular: Denies chest pain, Reports leg edema, Denies lightheadedness, Denies Loss of Consciousness, Denies palpitations, Reports dyspnea, Reports dyspnea on exertion and Reports orthopnea Respiratory: Respiratory: Denies cough, Reports dyspnea and Reports dyspnea on exertion Gastrointestinal: Gastrointestinal: Reports no additional gastrointestinal complaints Genitourinary: Genitourinary: Reports no additional female genitourinary complaints Musculoskeletal: Musculoskeletal: Reports no additional musculoskeletal complaints Neurologic: Reports system reviewed and no additional complaints, except as documented Psychiatric: Psychiatric: Reports no additional psychiatric complaints Endocrine: Endocrine: Reports no additional endocrine complaints and Denies palpitations Hematologic/Lymphatic: Hematologic/Lymphatic: Reports no additional hematologic/lymphatic complaints [facility] Past Medical History Medical History Talamantes disease Social History Social History Household Members: Family Housing: Apartment Do you presently have visiting nurse or other home services: No Alcohol intake: former Smoking Status: Former smoker Smoked in Last 30 Days: No Use of substances other than those prescribed or required for medical reasons: No Currently Displaying Signs/Symptoms of Drug Intoxication Withdrawal: No Have you been hit, kicked, punched, or otherwise hurt by someone within the past year? If so, by whom?: No Do you feel safe in your current relationship?: No Current Relationship Is there a partner from a previous relationship who is making you feel unsafe now?: No Are you made to feel afraid or neglected: No Advance Directives: No Advance Directives Information Provided: Yes Do you have thoughts of harming others: None Do you have a plan to hurt others: No Plan Recently lost weight without trying: No service: No Current occupational status: retired [employer] Allergies Allergy/AdvReac Type Severity Reaction Status Date / Time No Known Allergies Allergy Verified 05/13/20 15:49 Active Medications: Current Medications Generic Name Dose Route Start Last Admin Trade Name Freq PRN Reason Stop Dose Admin Acetaminophen 650 mg 05/13/20 23:02 Acetaminophen 325 Mg Tablet PO Q6H PRN Pain, Mild (Pain Scale 1-3) Albuterol/Ipratropium 3 ml 05/14/20 08:00 05/14/20 07:31 Albuterol/Iprat 2.5/0.5mg 3 Ml Ampul.Neb INHALE 3 ml RQ6H WHILE AWAKE SANTOSH Administration Albuterol/Ipratropium 3 ml 05/14/20 08:00 Albuterol/Iprat 2.5/0.5mg 3 Ml Ampul.Neb INHALE RQ4H WHILE AWAKE SANTOSH Aspirin 81 mg 05/14/20 09:00 05/14/20 08:28 Aspirin Enteric Coated 81 Mg Tablet. PO 81 mg DAILY SANTOSH Administration Furosemide 40 mg 05/14/20 09:00 Furosemide 40 Mg/4 Ml Vial IVPUSH DAILY [facility] Protocol Heparin Sodium (Porcine) 5,000 unit 05/13/20 23:15 05/14/20 08:29 Heparin Sodium,Porcine 5,000 Unit/Ml Vial SUBCUT 5,000 unit Q8H SANTOSH Administration Piperacillin Sod/Tazobactam 50 mls @ 100 mls/hr 05/14/20 04:00 05/14/20 11:21 Sod 3.375 gm/ Sodium Chloride IV 100 mls/hr Q6H SANTOSH Administration Vancomycin HCl 1,000 mg/ 270 mls @ 270 mls/hr 05/15/20 02:00 Sodium Chloride IV Q24H SANTOSH Methylprednisolone Sodium Succinate 40 mg 05/14/20 06:00 05/14/20 05:50 Methylprednisolone Sod Succ 40 Mg/Ml Vial IVPUSH 40 mg Q8H SANTOSH Administration Pharmacy Consult 1 each 05/14/20 01:26 Consult Rx Vancomycin Dosing MISCELLANE DAILY PRN Consult order Sodium Chloride 3 ml 05/14/20 00:00 05/14/20 08:29 0.9 % Sodium Chloride Flush 3 Ml Syringe IVFLUSH 3 ml QSHIFT [facility] Administration Home Medications Medication Instructions Recorded Confirmed Last Taken Type aspirin 81 mg PO DAILY 05/13/20 05/13/20 Unknown History Physical Exam Vital Signs: Vital Signs: Last Vital Signs Temp 98.1 F 05/14/20 07:55 Pulse 112 H 05/14/20 07:55 Resp 22 H 05/14/20 07:55 BP 105/73 05/14/20 07:55 Pulse Ox 92 05/14/20 07:55 Body Mass Index 23.3 Const: General: cooperative, acute distress moderate and respiratory and anxious Nutritional Appearance: thin Orientation/consciousness: patient oriented x3 HENMT: Head: Yes normocephalic Neck: Neck: Yes trachea midline, Yes supple and Yes JVD Resp: Effort & Inspection: normal respiratory effort and uses accessory muscles Auscultation: rales (At bases) and diminished lung sounds Cardio: Jugular venous distension: JVD Palpation: normal PMI Rate: regular rate Rhythm: regular rhythm and abnormal rhythm Heart sounds: S1 normal heart sound present, S2 normal heart sound present and Murmur heart sound present systolic holo GI: Auscultation: normal bowel sounds Skin: General skin exam: no rashes or lesions noted Neuro: General: patient oriented x3 and no focal motor deficits Extrem: General: No clubbing, Yes edema and Yes other (Peripheral digital necrotic changes noted) Psych: Appearance: grossly normal Results Labs and Meds Result diagrams: 05/14/20 06:16 05/14/20 06:16 Lab results: Laboratory Results - last 24 hr 05/13/20 05/13/20 05/13/20 16:03 16:03 16:03 WBC 11.0 H RBC 5.03 Hgb 15.0 Hct 48.2 H MCV 95.8 MCH 29.8 MCHC 31.1 RDW 15.9 Plt Count 441 H MPV 10.6 Immature Gran % (Auto) 0.6 H Neut % (Auto) 81.7 H Lymph % (Auto) 10.4 L [place] % (Auto) 6.1 Eos % (Auto) 0.7 Baso % (Auto) 0.5 Lymph # (Auto) 1.2 [place] # (Auto) 0.7 Eos # (Auto) 0.1 Baso # (Auto) 0.1 Abs Immat Gran (auto) 0.07 H Absolute Neuts (auto) 9.0 H Absolute Nucleated RBC 0.030 H Nucleated RBC % (auto) 0.3 H Smear Tech's Comments PT 15.1 H INR 1.3 H APTT 38.6 H O2 Saturation ABG pH at Pt Temp ABG pCO2 at Pt Temp ABG pO2 at Pt Temp ABG HCO3 ABG Base Excess (Actual) VBG pH VBG pCO2 VBG pO2 VBG HCO3 VBG O2 Saturation VBG Base Excess Sodium 140 Potassium 4.9 Chloride 109 H Carbon Dioxide 20 L Anion Gap 16 BUN 30 H Creatinine 1.06 Estim Creat Clear Calc 43.2 Estimated GFR 51 Random Glucose 116 H Lactic Acid Lactic Acid Fup @ 2Hr Lactic Acid Fup @ 4Hr Calcium 9.1 Total Bilirubin 0.8 AST 26 ALT 15 Alkaline Phosphatase 250 H Troponin I High Sens B-Natriuretic Peptide Total Protein 7.0 Albumin 3.3 L Urine Color Urine Appearance Urine pH Ur Specific [place] Urine Protein Urine Glucose (UA) Urine Ketones Urine Blood Urine Nitrite Ur Leukocyte Esterase COVID-19 (TAZ) COVID-19 Clin Com 05/13/20 05/13/20 05/13/20 16:03 16:03 16:03 WBC RBC Hgb Hct MCV MCH MCHC RDW Plt Count MPV Immature Gran % (Auto) Neut % (Auto) Lymph % (Auto) [place] % (Auto) Eos % (Auto) Baso % (Auto) Lymph # (Auto) [place] # (Auto) Eos # (Auto) Baso # (Auto) Abs Immat Gran (auto) Absolute Neuts (auto) Absolute Nucleated RBC Nucleated RBC % (auto) Smear Tech's Comments PT INR APTT O2 Saturation ABG pH at Pt Temp ABG pCO2 at Pt Temp ABG pO2 at Pt Temp ABG HCO3 ABG Base Excess (Actual) VBG pH VBG pCO2 VBG pO2 VBG HCO3 VBG O2 Saturation VBG Base Excess Sodium Potassium Chloride Carbon Dioxide Anion Gap BUN Creatinine Estim Creat Clear Calc Estimated GFR Random Glucose Lactic Acid 2.4 H* Lactic Acid Fup @ 2Hr Lactic Acid Fup @ 4Hr Calcium Total Bilirubin AST ALT Alkaline Phosphatase Troponin I High Sens 40.9 H B-Natriuretic Peptide 1310 H Total Protein Albumin Urine Color Urine Appearance Urine pH Ur Specific Mill[place] Urine Protein Urine Glucose (UA) Urine Ketones Urine Blood Urine Nitrite Ur Leukocyte Esterase COVID-19 (TAZ) Negative COVID-[employer] Com See Note 05/13/20 05/13/20 05/13/20 18:56 18:56 20:52 WBC RBC Hgb Hct MCV MCH MCHC RDW Plt Count MPV Immature Gran % (Auto) Neut % (Auto) Lymph % (Auto) [place] % (Auto) Eos % (Auto) Baso % (Auto) Lymph # (Auto) [place] # (Auto) Eos # (Auto) Baso # (Auto) Abs Immat Gran (auto) Absolute Neuts (auto) Absolute Nucleated RBC Nucleated RBC % (auto) Smear Tech's Comments PT INR APTT O2 Saturation ABG pH at Pt Temp ABG pCO2 at Pt Temp ABG pO2 at Pt Temp ABG HCO3 ABG Base Excess (Actual) VBG pH VBG pCO2 VBG pO2 VBG HCO3 VBG O2 Saturation VBG Base Excess Sodium Potassium Chloride Carbon Dioxide Anion Gap BUN Creatinine Estim Creat Clear Calc Estimated GFR Random Glucose Lactic Acid Lactic Acid Fup @ 2Hr 2.1 H* Lactic Acid Fup @ 4Hr Calcium Total Bilirubin AST ALT Alkaline Phosphatase Troponin I High Sens 37.9 H B-Natriuretic Peptide Total Protein Albumin Urine Color YELLOW Urine Appearance CLEAR Urine pH 5.5 Ur Specific Mill[place] 1.015 Urine Protein NEG Urine Glucose (UA) NEG Urine Ketones NEG Urine Blood NEG Urine Nitrite NEG Ur Leukocyte Esterase NEG COVID-19 (TAZ) COVID-[employer] 05/13/20 05/14/20 05/14/20 21:04 01:20 02:29 WBC RBC Hgb Hct MCV MCH MCHC RDW Plt Count MPV Immature Gran % (Auto) Neut % (Auto) Lymph % (Auto) [place] % (Auto) Eos % (Auto) Baso % (Auto) Lymph # (Auto) [place] # (Auto) Eos # (Auto) Baso # (Auto) Abs Immat Gran (auto) Absolute Neuts (auto) Absolute Nucleated RBC Nucleated RBC % (auto) Smear Tech's Comments PT INR APTT O2 Saturation 88.0 ABG pH at Pt Temp 7.46 H ABG pCO2 at Pt Temp 19 L* ABG pO2 at Pt Temp 64 L ABG HCO3 14 L ABG Base Excess (Actual) -6.9 VBG pH 7.42 VBG pCO2 26 VBG pO2 50 VBG HCO3 17 L VBG O2 Saturation 73.0 VBG Base Excess -4.8 Sodium Potassium Chloride Carbon Dioxide Anion Gap BUN Creatinine Estim Creat Clear Calc Estimated GFR Random Glucose Lactic Acid 3.2 H* Lactic Acid Fup @ 2Hr Lactic Acid Fup @ 4Hr Calcium Total Bilirubin AST ALT Alkaline Phosphatase Troponin I High Sens B-Natriuretic Peptide Total Protein Albumin Urine Color Urine Appearance Urine pH Ur Specific [place] Urine Protein Urine Glucose (UA) Urine Ketones Urine Blood Urine Nitrite Ur Leukocyte Esterase COVID-19 (TAZ) COVID-19 Clin Com 05/14/20 05/14/20 05/14/20 03:49 06:16 06:16 WBC 10.1 RBC 4.83 Hgb 14.0 Hct 47.0 MCV 97.3 MCH 29.0 MCHC 29.8 L RDW 15.9 Plt Count 370 MPV 10.7 Immature Gran % (Auto) 0.7 H Neut % (Auto) 90.9 H Lymph % (Auto) 6.7 L [place] % (Auto) 1.6 L Eos % (Auto) 0.0 Baso % (Auto) 0.1 Lymph # (Auto) 0.7 L [place] # (Auto) 0.2 Eos # (Auto) 0.0 Baso # (Auto) 0.0 Abs Immat Gran (auto) 0.07 H Absolute Neuts (auto) 9.2 H Absolute Nucleated RBC 0.000 Nucleated RBC % (auto) 0.0 Smear Tech's Comments VERIFIED PT INR APTT O2 Saturation ABG pH at Pt Temp ABG pCO2 at Pt Temp ABG pO2 at Pt Temp ABG HCO3 ABG Base Excess (Actual) VBG pH VBG pCO2 VBG pO2 VBG HCO3 VBG O2 Saturation VBG Base Excess Sodium 141 Potassium 4.3 Chloride 108 Carbon Dioxide 19 L Anion Gap 18 BUN 27 H Creatinine 1.14 Estim Creat Clear Calc 40.2 Estimated GFR 47 Random Glucose 160 H D Lactic Acid Lactic Acid Fup @ 2Hr 3.6 H* Lactic Acid Fup @ 4Hr Calcium 8.7 Total Bilirubin AST ALT Alkaline Phosphatase Troponin I High Sens B-Natriuretic Peptide Total Protein Albumin Urine Color Urine Appearance Urine pH Ur Specific [place] Urine Protein Urine Glucose (UA) Urine Ketones Urine Blood Urine Nitrite Ur Leukocyte Esterase COVID-19 (TAZ) COVID-[employer] Com 05/14/20 06:16 WBC RBC Hgb Hct MCV MCH MCHC RDW Plt Count MPV Immature Gran % (Auto) Neut % (Auto) Lymph % (Auto) [place] % (Auto) Eos % (Auto) Baso % (Auto) Lymph # (Auto) [place] # (Auto) Eos # (Auto) Baso # (Auto) Abs Immat Gran (auto) Absolute Neuts (auto) Absolute Nucleated RBC Nucleated RBC % (auto) Smear Tech's Comments PT INR APTT O2 Saturation ABG pH at Pt Temp ABG pCO2 at Pt Temp ABG pO2 at Pt Temp ABG HCO3 ABG Base Excess (Actual) VBG pH VBG pCO2 VBG pO2 VBG HCO3 VBG O2 Saturation VBG Base Excess Sodium Potassium Chloride Carbon Dioxide Anion Gap BUN Creatinine Estim Creat Clear Calc Estimated GFR Random Glucose Lactic Acid Lactic Acid Fup @ 2Hr Lactic Acid Fup @ 4Hr 3.9 H* Calcium Total Bilirubin AST ALT Alkaline Phosphatase Troponin I High Sens B-Natriuretic Peptide Total Protein Albumin Urine Color Urine Appearance Urine pH Ur Specific [place] Urine Protein Urine Glucose (UA) Urine Ketones Urine Blood Urine Nitrite Ur Leukocyte Esterase COVID-19 (TAZ) COVID-19 [employer] Com EKG is consistent with sinus tachycardia with rightward axis and pulmonary disease pattern Imaging Radiologist's impression: Impressions Chest X-Ray 05/13/20 15:50 IMPRESSION: Bilateral pleural effusions slightly greater on the right with underlying atelectasis. Chest CTA 05/13/20 19:34 IMPRESSION: 1. No pulmonary emboli 2. COPD with cardiomegaly and interstitial edema raising question of CHF 3. Markedly enlarged right atria right ventricle with reflux of contrast into the IVC and hepatic veins consistent with elevated right heart pressures VTE: negative Foot X-Ray 05/13/20 22:02 IMPRESSION: Loss of bone of the distal phalanx and focal erosion of the proximal phalanx of great toe consistent with osteomyelitis. 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 Continue gentle diuresis Lasix 20 mg IV b.i.d.. Strict intake and output chart needs to be pursued. Will obtain an echocardiogram to assess for LV systolic and diastolic function as well as for valvular abnormality as a cause of her congestive heart failure. Most likely represents un diagnose underlying severe COPD and chronic cor pulmon noemi causing right heart failure syndrome. Will pursue further treatment option after the echocardiogram which will further delineate her cardiac abnormality. Sinus tachycardia related to hypoxemia. Not sure if she has any signs of sepsis given high lactic acid. Her oxygen saturations have improved with oxygen supplementation. Continue the same. Consider pulmonary consult as well. Also consider vascular consult for her peripheral gangrene. Prognosis is guarded. Will follow the patient
--- NOTE | 2020-05-14 13:00 | CA_ITS ---
Transthoracic Echocardiogram Patient (Last, First, Middle): Radha Jiménez, Gender: Female Date of : 1950 Age: 69 Procedure Date: 05/14/2020 Procedure Type: Transthoracic Echocardiogram Location: [facility] [place] Height: 162.56 cm Weight: 62. kg BSA: 1.66 m2 Heart Rate: bpm BP: 130 / 94 mmHg [employer]: Referring MD: Timothy Simental MD Health Center Manager: Timothy Simental MD Symptoms: Heart failure Study Quality: Fair ECG Rhythm: Atrial flutter Conclusions: - 1. Severely dilated right-sided chambers with RV systolic dysfunction 2. Severe tricuspid regurgitation 3. Normal LV systolic function 4. Severely elevated right ventricular systolic pressure 5. No gross pericardial effusion Findings Left Ventricle Normal left ventricular size, thickness, and systolic function. The visually estimated ejection fraction is between 60-65%. There is a flattened septum in diastole ( D shaped left ventricle) consistent with right ventricular volume overload and a flattened septum in systole consistent with right ventricular pressure overload. Diastolic function is indeterminate on the basis of available data. Right Ventricle Severely increased right ventricular cavity size. There is moderate to severely decreased right ventricular systolic function. Atria The left atrium is normal in size. There is no evidence of interatrial shunt. The right atrium is severely dilated. Aortic Valve Normal aortic valve structure and function. There is no aortic valve stenosis. There is no aortic valve regurgitation. Mitral Valve There is mild anterior mitral leaflet thickening. There is mild mitral annular calcification. There is trace mitral valve regurgitation. There is no mitral valve stenosis. Pulmonic Valve The pulmonic valve was not well visualized. Tricuspid Valve Likely normal tricuspid valve structure and function. There is severe tricuspid valve regurgitation. Mildly elevated right atrial pressure. Severe pulmonary hypertension is present. Great Vessels All visible segments of the aorta are normal in size. The pulmonary artery was not well visualized. Venous The inferior vena cava is mildly dilated and collapses less than 50% with inspiration. Pericardium/Pleural There is no evidence of pericardial effusion. Prior Study Comparison No prior study available for comparison. Measurements 2D Linear Measurements IVSd: 1.08 0.6-0.9/0.6-1.0 cm LVIDd: 2.95 3.9-5.3/4.2-5.9 cm LVIDd Index: 1.78 2.4-3.2/2.2-3.1 cm/m2 LVIDs: 1.82 2.0-3.6 cm LVPWd: 1.02 0.7-1.1 cm Ao Root: 2.90 2.1-3.5 cm LA Diam: 3.30 2.7-3.8/3.0-4.0 cm LAIDs Index: 1.99 1.5-2.3 cm/m2 LV Mass: 122.08 67-162/88-224 g LV Mass Index: 73.54 43-95/49-115 g/m2 LVOT Diam: 2.00 3.0+(-)1.3 cm Mitral Valve MV Pk E: 0.82 MV Decel Time: 81.00 E'Lateral: 7.83 E'Medial: 5.42 E/E' Med: 15.10 E/E' Lat: 10.50 PHT: 24.00 MVA PHT: 9.17 Decel Comanche: 10.12 Aortic Valve AoV Pk Hola: 1.00 AoV Mn Hola: 0.62 AoV VTI: 0.11 AoV Pk Grad: 4.00 Aov Mn Grad: 2.00 KATHY Cont.VTI: 3.11 LVOT LVOT Pk Hola: 0.65 LVOT Mn Hola: 0.41 LVOT VTI: 0.11 LVOT Pk Grad: 2.00 LVOT Mn Grad: 1.00 LVOT Diam: 2.00 LVOT Area: 3.14 Diastolic Function MV Pk E: 0.82 E'Medial: 5.42 E/E' Med: 15.10 E' Laterial: 7.83 E/E' Lat: 10.50 Tricuspid Valve TR Pk Hola: 4.07 TR Pk Grad: 66.00 RA Press: 8.00 RVSP: 74.00 Great Vessels Aorta Ao Root-2D: 2.90 2.0-3.7 cm Ao Asc: 2.80 2.1-3.4 cm Pulmonary Valve PV Pk Hola: 0.77 Peak PV Grad: 2.00 Updated in Other Vendor System with Status of Final Timothy Simental MD electronically signed on 05/14/2020 3:11:34 PM with status of Final
--- NOTE | 2020-05-14 14:38 | P.PNIM_ITS ---
Subjective Subjective Date of Service: 05/14/20 Interval History: patient seen and examined at bedside patient was reporting some improvement in breathing Constitutional Constitutional: Reports no additional constitutional complaints Cardiovascular Cardiovascular: Denies chest pain, Reports leg edema, Denies lightheadedness, Denies Loss of Consciousness, Denies palpitations, Reports dyspnea, Reports dyspnea on exertion and Reports orthopnea Respiratory Respiratory: Denies cough, Reports dyspnea and Reports dyspnea on exertion Gastrointestinal Gastrointestinal: Reports no additional gastrointestinal complaints Musculoskeletal Musculoskeletal: Reports no additional musculoskeletal complaints Neurologic Neurologic: Reports system reviewed and no additional complaints, except as documented Psychiatric Psychiatric: Reports no additional psychiatric complaints Endocrine Endocrine: Reports no additional endocrine complaints and Denies palpitations Hematologic/Lymphatic Hematologic/Lymphatic: Reports no additional hematologic/lymphatic complaints Physical Exam Vital Signs: Vital Signs: Last Vital Signs Temp 97.0 F 05/14/20 12:00 Pulse 112 H 05/14/20 12:12 Resp 21 H 05/14/20 12:00 BP 107/80 05/14/20 12:00 Pulse Ox 92 05/14/20 12:00 Body Mass Index 23.3 Const: General: cooperative, acute distress moderate and respiratory and anxious Nutritional Appearance: thin Orientation/consciousness: oriented to person, oriented to place and patient oriented x3 Limitations: no limitations HENMT: Head: Yes normal to inspection, Yes normocephalic and Yes atraumatic Ears: external ears normal General nose exam: Normal external nose present Face and sinus: Yes normal facial exam Mouth: Normal oral and palatal mucosa present Throat: Yes posterior oropharynx normal Eyes: Periorbital: periorbital findings normal Eyelids: Yes eyelids normal Conjunctivae: conjunctivae normal Sclerae: sclerae normal Corneas: corneas normal Pupils: Equal, round and reactive pupils present Direct Ophthalmoscopy: normal light reflex Neck: Neck: Yes full ROM, Yes no lymphadenopathy, Yes no meningeal signs, Yes trachea midline, Yes supple and Yes JVD Chest: Chest palpation & inspection: normal inspection of the chest and normal palpation of entire chest wall Resp: Effort & Inspection: normal respiratory effort, able to speak in complete sentences and uses accessory muscles Auscultation: clear to auscultation bilaterally, rales (At bases) and diminished lung sounds Cardio: Jugular venous distension: JVD Palpation: normal PMI Rate: regular rate Rhythm: regular rhythm and abnormal rhythm Heart sounds: S1 normal heart sound present, S2 normal heart sound present and Murmur heart sound present systolic holo GI: Inspection: Yes normal to inspection Palpation (GI): Soft to palpation, nontender, no guarding, not rigid and No hepatosplenomegaly present Auscultation: normal bowel sounds : General: Yes no CVA tenderness Back/Spine/Pelvis: Back: no CVA tenderness Cervical Spine: normal cervical lordosis Thoracic/Lumbar Spine: thoracic and lumbar spine normal to inspection Skin: General skin exam: no rashes or lesions noted Lesions: no lesions Rashes: no rashes Wounds: no wounds Neuro: General: oriented to person, oriented to place, patient oriented x3, no meningeal signs and no focal motor deficits Cranial nerves: Yes CN's II-XII intact bilaterally and Yes Equal, round and reactive pupils present Cognition (Neuro): normal cognition Motor exam (neuro): 5/5 motor strength present throughout Extrem: Other: The patient has damage to the fingers of her hand and 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 General: No clubbing, Yes edema and Yes other (Peripheral digital necrotic changes noted) Psych: Appearance: grossly normal and well kempt Mental Status: mental status grossly normal Speech and movement: Normal speech and movement present Affect: Anxious affect present Attitude: cooperative Thought process: Normal thought process present Thought content: Normal thought content present Objective Data Current Medications Generic Name Dose Route Start Last Admin Trade Name Freq PRN Reason Stop Dose Admin Acetaminophen 650 mg 05/13/20 23:02 Acetaminophen 325 Mg Tablet PO Q6H PRN Pain, Mild (Pain Scale 1-3) Albuterol/Ipratropium 3 ml 05/14/20 08:00 05/14/20 07:31 Albuterol/Iprat 2.5/0.5mg 3 Ml Ampul.Neb INHALE 3 ml RQ6H WHILE AWAKE [facility] Administration Albuterol/Ipratropium 3 ml 05/14/20 08:00 05/14/20 12:06 Albuterol/Iprat 2.5/0.5mg 3 Ml Ampul.Neb INHALE 3 ml RQ4H WHILE AWAKE [facility] Administration Aspirin 81 mg 05/14/20 09:00 05/14/20 08:28 Aspirin Enteric Coated 81 Mg Tablet.Dr PO 81 mg DAILY [facility] Administration Furosemide 40 mg 05/14/20 09:00 Furosemide 40 Mg/4 Ml Vial IVPUSH DAILY [facility] Protocol Heparin Sodium (Porcine) 5,000 unit 05/13/20 23:15 05/14/20 08:29 Heparin Sodium,Porcine 5,000 Unit/Ml Vial SUBCUT 5,000 unit Q8H [facility] Administration Piperacillin Sod/Tazobactam 50 mls @ 100 mls/hr 05/14/20 04:00 05/14/20 12:41 Sod 3.375 gm/ Sodium Chloride IV Infused Q6H [facility] Infusion Vancomycin HCl 1,000 mg/ 270 mls @ 270 mls/hr 05/15/20 02:00 Sodium Chloride IV Q24H [facility] Methylprednisolone Sodium Succinate 40 mg 05/14/20 06:00 05/14/20 05:50 Methylprednisolone Sod Succ 40 Mg/Ml Vial IVPUSH 40 mg Q8H [facility] Administration Pharmacy Consult 1 each 05/14/20 01:26 Consult Rx Vancomycin Dosing MISCELLANE DAILY PRN Consult order Sodium Chloride 3 ml 05/14/20 00:00 05/14/20 08:29 0.9 % Sodium Chloride Flush 3 Ml Syringe IVFLUSH 3 ml QSHIFT [facility] Administration Labs CBC & Chem 7: 05/14/20 06:16 05/14/20 06:16 Assessment and Plan (1) Congestive heart failure: Status: Acute Assessment and Plan: 69-year-old female with a past medical history of Buergers disease, dose and fingers gangrene, COPD presented to the hospital with a chief complaint of shortness of breath. Noted to have new onset CHF. Acute hypoxic respiratory failure: Likely in the setting of CHF and COPD exacerbation continue oxygen supplementation New onset CHF continue IV Lasix seen by Cardiology recommended echocardiogram monitor I&Os, monitor daily weights. continueTelemetry. COPD exacerbation, CT shows no pulmonary embolism continueSolumedrol TID continueNebulizations standing and p.r.n. continuesuppl oxygen lactic acidosis likely secondary to nebulizer not from sepsis Gangrene of the toes and fingers: Foot x-ray shows findings consistent with osteomyelitis. Continue Vanc and Zosyn follow-up cultures vascular surgery consulted DVT prophylaxis: Subcu heparin Code status: Full code
[2020-05-14 21:45] LABS: Lactic Acid 3.6 mmol/L (0.5-2.0)
[2020-05-14] MEDS: Furosemide 40 MG/4 ML VIAL IVPUSH (22:21)
[2020-05-14 22:31] LABS: ABG Base Excess -6.4 mmol/L; ABG HCO3 14 mmol/L (22-26); ABG pCO2 21 mmHg (32-45); ABG pCO2 TC 20 mmHg (32-45); ABG pH 7.45 (7.35-7.45); ABG pH TC 7.46 (7.35-7.45); ABG pO2 86 mmHg (83-108); ABG pO2 TC 81 (83-108)
[2020-05-14 22:31] LABS: ABG Refer to POC result
[2020-05-14 23:20] LABS: Reflex Lactate? Lactic Acid Added
[2020-05-15] VITALS (9 sets, daily range): BP systolic 102–123; BP diastolic 57–79; PULSE 107–118; RESP 18–22; TEMP 36.2–37.1; O2SAT 93–98; BMI 23.3
[2020-05-15 00:11] LABS: ~Lactic Acid-LAB USE ONLY 2.9 mmol/L (0.5-2.0)
[2020-05-15] MEDS: 0.9 % Sodium Chloride Flush 3 ML SYRINGE IVFLUSH ×4 (01:03→21:58)
[2020-05-15 01:46] LABS: Reflex Lactate? 2 Y
[2020-05-15] MEDS: vancomycin HCL 1,000 MG in 0.9 % Sodium Chloride 250 ML 270 MG IV (02:04)
[2020-05-15 02:32] LABS: ~Lactic Acid-LAB USE ONLY 2.6 mmol/L (0.5-2.0)
[2020-05-15] MEDS: Piperacillin Sodium/Tazobactam 3.375 GM in 0.9 % Sodium Chloride 50 ML IV ×4 (04:07→21:58)
[2020-05-15] MEDS: methylPREDNISolone Sod Succ 40 MG/ML VIAL IVPUSH ×3 (06:09→21:58)
[2020-05-15 07:02] LABS: MANUAL DIFF FLAG NO
[2020-05-15 07:09] LABS: Basophils Percent Auto 0.1 % (0-2); Hematocrit 45.9 % (37-47); Hemoglobin 14.3 g/dl (12.0-16.0); Imm Gran Abs Auto 0.05 X10*3/uL (0.00-0.03); Imm Gran Pct Auto 0.6 % (0.0-0.4); Lymphocytes Absolute Auto 0.9 X10*3/uL (1.2-4.9); Lymphocytes Percent Auto 10.7 % (20-40); Mean Corpuscular HGB Conc 31.2 g/dl (31.0-35.0); Mean Corpuscular Hemoglobin 29.8 pg (27.0-33.0); Mean Corpuscular Volume 95.6 fL (80-98); Mean Platelet Volume 10.8 fL (9.4-12.3); Monocytes Absolute Auto 0.5 X10*3/uL (0.1-1.2); Monocytes Percent Auto 6.2 % (2-11); NRBC Pct Auto 0.4 /100WBC (0.0-0.2); Neutrophils Absolute Auto 6.8 X10*3/uL (2.0-8.3); Neutrophils Percent Auto 82.4 % (45-73); Platelet Count 374 X10*3/uL (160-400); Red Cell Distribution Width 15.8 % (11.0-16.0); White Blood Count 8.2 X10*3/uL (4.8-10.8)
[2020-05-15] MEDS: Albuterol/Iprat 2.5/0.5MG 3 ML AMPUL.NEB INHALE ×3 (07:36→21:08)
[2020-05-15 07:37] LABS: Alanine Aminotransferase 15 U/L (0-31); Albumin Level 3.1 g/dL (3.5-5.0); Alkaline Phosphatase 184 U/L (39-117); Anion Gap 18 (12-20); Aspartate Amino Transferase 22 U/L (5-31); Bilirubin Total 0.9 mg/dL (0.0-1.0); Blood Urea Nitrogen 37 mg/dL (9-16); Calcium 8.9 mg/dL (8.4-10.2); Carbon Dioxide 21 mmol/L (22-29); Chloride 106 mmol/L (96-108); Estimated Glomerular Filt Rate 36; Glucose Random 130 mg/dL (60-115); Potassium 4.6 mmol/L (3.3-5.1); Sodium 140 mmol/L (135-145); Total Protein 6.5 g/dL (6.5-8.0)
[2020-05-15 07:44] LABS: Lactic Acid 2.5 mmol/L (0.5-2.0)
[2020-05-15] MEDS: Heparin Sodium,Porcine 5,000 UNIT/ML VIAL 5000 UNIT SUBCUT ×3 (08:22→21:58)
[2020-05-15] MEDS: Aspirin Enteric Coated 81 MG TABLET.DR PO (08:22)
[2020-05-15 09:00] LABS: Reflex Lactate? Lactic Acid Added
--- NOTE | 2020-05-15 11:32 | P.HPHOSP_ITS ---
[facility] Medical History Talaamntes disease Social History Household Members: Family Housing: Apartment Do you presently have visiting nurse or other home services: No Alcohol intake: former Smoking Status: Former smoker Smoked in Last 30 Days: No Use of substances other than those prescribed or required for medical reasons: No Currently Displaying Signs/Symptoms of Drug Intoxication Withdrawal: No Have you been hit, kicked, punched, or otherwise hurt by someone within the past year? If so, by whom?: No Do you feel safe in your current relationship?: No Current Relationship Is there a partner from a previous relationship who is making you feel unsafe now?: No Are you made to feel afraid or neglected: No Advance Directives: No Advance Directives Information Provided: Yes Do you have thoughts of harming others: None Do you have a plan to hurt others: No Plan Recently lost weight without trying: No service: No Current occupational status: retired [employer] Allergies Allergy/AdvReac Type Severity Reaction Status Date / Time No Known Allergies Allergy Verified 05/13/20 15:49 Active Medications: Current Medications Generic Name Dose Route Start Last Admin Trade Name Freq PRN Reason Stop Dose Admin Acetaminophen 650 mg 05/13/20 23:02 Acetaminophen 325 Mg Tablet PO Q6H PRN Pain, Mild (Pain Scale 1-3) Albuterol/Ipratropium 3 ml 05/14/20 08:00 05/15/20 07:37 Albuterol/Iprat 2.5/0.5mg 3 Ml Ampul.Neb INHALE Not Given RQ6H WHILE AWAKE [facility] Albuterol/Ipratropium 3 ml 05/14/20 08:00 05/15/20 07:36 Albuterol/Iprat 2.5/0.5mg 3 Ml Ampul.Neb INHALE 3 ml RQ4H WHILE AWAKE [facility] Administration Aspirin 81 mg 05/14/20 09:00 05/15/20 08:22 Aspirin Enteric Coated 81 Mg Tablet. PO 81 mg DAILY [facility] Administration Furosemide 40 mg 05/14/20 09:00 Furosemide 40 Mg/4 Ml Vial IVPUSH DAILY [facility] Protocol Heparin Sodium (Porcine) 5,000 unit 05/13/20 23:15 05/15/20 08:22 Heparin Sodium,Porcine 5,000 Unit/Ml Vial SUBCUT 5,000 unit Q8H [facility] Administration Piperacillin Sod/Tazobactam 50 mls @ 100 mls/hr 05/14/20 04:00 05/15/20 11:03 Sod 3.375 gm/ Sodium Chloride IV 100 mls/hr Q6H [facility] Administration Vancomycin HCl 1,000 mg/ 270 mls @ 270 mls/hr 05/15/20 02:00 05/15/20 03:15 Sodium Chloride IV Infused Q24H [facility] Infusion Methylprednisolone Sodium Succinate 40 mg 05/14/20 06:00 05/15/20 06:09 Methylprednisolone Sod Succ 40 Mg/Ml Vial IVPUSH 40 mg Q8H [facility] Administration Pharmacy Consult 1 each 05/14/20 01:26 Consult Rx Vancomycin Dosing MISCELLANE DAILY PRN Consult order Sodium Chloride 3 ml 05/14/20 00:00 05/15/20 08:23 0.9 % Sodium Chloride Flush 3 Ml Syringe IVFLUSH 3 ml QSHIFT [facility] Administration Home Medications Medication Instructions Recorded Confirmed Last Taken Type aspirin 81 mg PO DAILY 05/13/20 05/13/20 Unknown History Physical Exam Vital Signs and Narrative: Vital Signs: Last Vital Signs Temp 97.2 F 05/15/20 07:50 Pulse 107 H 05/15/20 07:57 Resp 22 H 05/15/20 07:50 BP 102/71 05/15/20 07:50 Pulse Ox 97 05/15/20 07:50 Body Mass Index 23.3 Gen: Appears be in no acute distress; speaks in full sentences HEENT: NCAT, Moist mucosa. Pulmonary: Slightly diminished breath sounds CVS: Normal S1-S2 Abdomen: BS+, Soft, Nontender Extremities: Warm well perfused; noted gangrene of the toes and fingers.; loaded soft tissue swelling around the toes. No crepitus noticed. Neuro: Alert and awake. Grossly nonfocal Results Labs CBC and Chem 7: 05/15/20 06:31 05/15/20 06:31 Labs: Laboratory Results - last 24 hr 05/14/20 05/14/20 05/14/20 21:13 22:22 23:36 MCV MCH MCHC RDW Plt Count MPV Immature Gran % (Auto) Neut % (Auto) Lymph % (Auto) Nicholas % (Auto) Eos % (Auto) Baso % (Auto) Lymph # (Auto) Nicholas # (Auto) Eos # (Auto) Baso # (Auto) Abs Immat Gran (auto) Absolute Neuts (auto) Absolute Nucleated RBC Nucleated RBC % (auto) O2 Saturation 95.0 ABG pH at Pt Temp 7.45 ABG pH (Temp Correct) 7.46 H ABG pCO2 at Pt Temp 21 L ABG pCO2 (Temp Corrct 20 L* ABG pO2 at Pt Temp 86 ABG pO2 (Temp Correct 81 L ABG HCO3 14 L ABG Base Excess (Actual) -6.4 Anion Gap Estim Creat Clear Calc Estimated GFR Random Glucose Lactic Acid 3.6 H* Lactic Acid Fup @ 2Hr 2.9 H* Lactic Acid Fup @ 4Hr Calcium Total Bilirubin AST ALT Alkaline Phosphatase Total Protein Albumin 05/15/20 05/15/20 05/15/20 02:08 06:31 06:31 MCV 95.6 MCH 29.8 MCHC 31.2 RDW 15.8 Plt Count 374 MPV 10.8 Immature Gran % (Auto) 0.6 H Neut % (Auto) 82.4 H Lymph % (Auto) 10.7 L Nicholas % (Auto) 6.2 Eos % (Auto) 0.0 Baso % (Auto) 0.1 Lymph # (Auto) 0.9 L Nicholas # (Auto) 0.5 Eos # (Auto) 0.0 Baso # (Auto) 0.0 Abs Immat Gran (auto) 0.05 H Absolute Neuts (auto) 6.8 Absolute Nucleated RBC 0.030 H Nucleated RBC % (auto) 0.4 H O2 Saturation ABG pH at Pt Temp ABG pH (Temp Correct) ABG pCO2 at Pt Temp ABG pCO2 (Temp Corrct ABG pO2 at Pt Temp ABG pO2 (Temp Correct ABG HCO3 ABG Base Excess (Actual) Anion Gap 18 Estim Creat Clear Calc 32.0 Estimated GFR 36 Random Glucose 130 H Lactic Acid Lactic Acid Fup @ 2Hr Lactic Acid Fup @ 4Hr 2.6 H* Calcium 8.9 Total Bilirubin 0.9 AST 22 ALT 15 Alkaline Phosphatase 184 H D Total Protein 6.5 Albumin 3.1 L 05/15/20 06:31 MCV MCH MCHC RDW Plt Count MPV Immature Gran % (Auto) Neut % (Auto) Lymph % (Auto) Nicholas % (Auto) Eos % (Auto) Baso % (Auto) Lymph # (Auto) Nicholas # (Auto) Eos # (Auto) Baso # (Auto) Abs Immat Gran (auto) Absolute Neuts (auto) Absolute Nucleated RBC Nucleated RBC % (auto) O2 Saturation ABG pH at Pt Temp ABG pH (Temp Correct) ABG pCO2 at Pt Temp ABG pCO2 (Temp Corrct ABG pO2 at Pt Temp ABG pO2 (Temp Correct ABG HCO3 ABG Base Excess (Actual) Anion Gap Estim Creat Clear Calc Estimated GFR Random Glucose Lactic Acid 2.5 H* Lactic Acid Fup @ 2Hr Lactic Acid Fup @ 4Hr Calcium Total Bilirubin AST ALT Alkaline Phosphatase Total Protein Albumin Imaging Radiologist's Impressions: Impressions Chest X-Ray 05/14/20 21:20 IMPRESSION: Small bilateral pleural effusions with adjacent atelectasis versus infiltrates, decreased when compared to the recent chest CT. Abd US [id number] 05/15/20 08:50 IMPRESSION: 1. The arteries to the lower extremities are patent bilaterally. 2. BRONSON on the right is normal at 0.99. BRONSON on the left demonstrates mild peripheral arterial disease at 0.85. Duplex Scan Lower Extremity Artery 05/15/20 10:35 IMPRESSION: 1. The arteries to the lower extremities are patent bilaterally. 2. BRONSON on the right is normal at 0.99. BRONSON on the left demonstrates mild peripheral arterial disease at 0.85. Assessment and Plan (1) Congestive heart failure: Qualifiers: Heart failure chronicity: chronic Heart failure type: combined systolic and diastolic Qualified Code(s): I50.42 - Chronic combined systolic (congestive) and diastolic (congestive) heart failure Status: Acute 69-year-old female with a 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 Noted to have new onset CHF. Acute hypoxic respiratory failure: Likely in the setting of CHF and COPD ex acerbation continue oxygen supplementation New onset CHF continue IV Lasix seen by Cardiology recommended echocardiogram monitor I&Os, monitor daily weights. continueTelemetry. COPD exacerbation, CT shows no pulmonary embolism continueSolumedrol TID continueNebulizations standing and p.r.n. continuesuppl oxygen lactic acidosis likely secondary to nebulizer not from sepsis Gangrene of the toes and fingers: Foot x-ray shows findings consistent with osteomyelitis. Continue Vanc and Zosyn follow-up cultures vascular surgery consulted DVT prophylaxis: Subcu heparin Code status: Full code
--- NOTE | 2020-05-15 11:36 | HO.PM.IMPN ---
Subjective Subjective Date of Service: 05/15/20 Interval History: Seen in f/u for heart failure exacerbation, overall better, persistent hyopoxia ROS: Gen: no fever Resp: no sob, no cough CV: no chest, no HERNANDEZ, no leg edema GI: No n/v, no abd pain Neuro: No confusion Physical Exam Vital Signs: Vital Signs: Last Vital Signs Temp 97.2 F 05/15/20 07:50 Pulse 107 H 05/15/20 07:57 Resp 22 H 05/15/20 07:50 BP 102/71 05/15/20 07:50 Pulse Ox 97 05/15/20 07:50 Body Mass Index 23.3 General: AO X 3, no acute distress Resp: CTA bilateral CVS: S1,S2,RRR GI: +BS, NT, no distention Skin:necrotic toes and fingers (see pictures) Neuro: motor grossly intact Psych: appropriate affect Objective Data Current Medications Generic Name Dose Route Start Last Admin Trade Name Freq PRN Reason Stop Dose Admin Acetaminophen 650 mg 05/13/20 23:02 Acetaminophen 325 Mg Tablet PO Q6H PRN Pain, Mild (Pain Scale 1-3) Albuterol/Ipratropium 3 ml 05/14/20 08:00 05/15/20 07:37 Albuterol/Iprat 2.5/0.5mg 3 Ml Ampul.Neb INHALE Not Given RQ6H WHILE AWAKE [facility] Albuterol/Ipratropium 3 ml 05/14/20 08:00 05/15/20 07:36 Albuterol/Iprat 2.5/0.5mg 3 Ml Ampul.Neb INHALE 3 ml RQ4H WHILE AWAKE [facility] Administration Aspirin 81 mg 05/14/20 09:00 05/15/20 08:22 Aspirin Enteric Coated 81 Mg Tablet. PO 81 mg DAILY [facility] Administration Furosemide 40 mg 05/14/20 09:00 Furosemide 40 Mg/4 Ml Vial IVPUSH DAILY [facility] Protocol Heparin Sodium (Porcine) 5,000 unit 05/13/20 23:15 05/15/20 08:22 Heparin Sodium,Porcine 5,000 Unit/Ml Vial SUBCUT 5,000 unit Q8H [facility] Administration Piperacillin Sod/Tazobactam 50 mls @ 100 mls/hr 05/14/20 04:00 05/15/20 11:03 Sod 3.375 gm/ Sodium Chloride IV 100 mls/hr Q6H [facility] Administration Vancomycin HCl 1,000 mg/ 270 mls @ 270 mls/hr 05/15/20 02:00 05/15/20 03:15 Sodium Chloride IV Infused Q24H [facility] Infusion Methylprednisolone Sodium Succinate 40 mg 05/14/20 06:00 05/15/20 06:09 Methylprednisolone Sod Succ 40 Mg/Ml Vial IVPUSH 40 mg Q8H [facility] Administration Pharmacy Consult 1 each 05/14/20 01:26 Consult Rx Vancomycin Dosing MISCELLANE DAILY PRN Consult order Sodium Chloride 3 ml 05/14/20 00:00 05/15/20 08:23 0.9 % Sodium Chloride Flush 3 Ml Syringe IVFLUSH 3 ml QSHIFT [facility] Administration Labs CBC & Chem 7: 05/15/20 06:31 05/15/20 06:31 Microbiology Microbiology Results: Microbiology 05/13/20 16:16 Blood - Venous Blood Culture - Preliminary No growth after 24 hours. 05/13/20 16:03 Blood - Venous Blood Culture - Preliminary No growth after 24 hours. 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 Noted to have new onset CHF. New CHF--clicinally seem still decompensated continue IV Lasis at 20 bid Echo tomorro Cardiology following Acute hypoxic respiratory failure likely d/t comibnnation of heart failure, Buergers's disease, and possble copd -Continue O2 (difficulty to get a good o2 sat due to digit ischemia) COPD exacerbation, CT shows no pulmonary embolism continueSolumedrol TID continue bronchodilators by neb lactic acidosis likely chronic from chronic ischemic limbs Gangrene of the toes and fingers: Foot x-ray shows findings consistent with osteomyelitis. Continue Vanc and Zosyn follow-up cultures vascular surgery consulted ID consult DVT prophylaxis: Subcu heparin Code status: Full code
[2020-05-15 12:04] LABS: ~Lactic Acid-LAB USE ONLY 3.5 mmol/L (0.5-2.0)
[2020-05-15 12:05] LABS: Reflex Lactate? 2 Y
--- NOTE | 2020-05-15 12:22 | P.PNCA_ITS ---
Subjective Subjective Date of Service: 05/15/20 Principal diagnosis: Congestive heart failure predominantly right-sided Interval history: Echocardiogram shows significant enlargement right-sided chambers with severe tricuspid regurgitation and pulmonary hypertension. Has not received any Lasix since yesterday for unclear reasons S per the nurse. However she says that she is breathing better, currently still requiring high- flow oxygen. Still short of breath. Still left leg edema. No chest pain. Oxygen saturation is difficult to obtain due to her peripheral vascular insufficiency. Review of Systems Constitutional: Reports no additional constitutional complaints Cardiovascular: Reports leg edema and Reports dyspnea Respiratory: Reports dyspnea Gastrointestinal: Reports no additional gastrointestinal complaints Genitourinary: Reports no additional female genitourinary complaints Reports system reviewed and no additional complaints, except as documented Psychiatric: Reports no additional psychiatric complaints Physical Exam Vital Signs: Last Vital Signs Temp 97.6 F 05/15/20 11:54 Pulse 118 H 05/15/20 12:14 Resp 22 H 05/15/20 11:54 BP 103/68 05/15/20 11:54 Pulse Ox 93 05/15/20 11:54 Body Mass Index 23.3 Const General: cooperative and acute distress moderate and respiratory Nutritional Appearance: underweight Orientation/consciousness: patient oriented x3 Neck Neck: Yes trachea midline, Yes supple and Yes JVD (Large V-waves) Resp Effort & Inspection: normal respiratory effort Auscultation: diminished lung sounds Cardio Heart sounds: S1 normal heart sound present, S2 normal heart sound present and Murmur heart sound present systolic holo Skin General skin exam: no rashes or lesions noted Neuro General: patient oriented x3 Extrem General: Yes edema Results Labs and Meds Result diagrams: 05/15/20 06:31 05/15/20 06:31 Lab results: Laboratory Results - last 24 hr 05/14/20 05/14/20 05/14/20 21:13 22:22 23:36 WBC RBC Hgb Hct MCV MCH MCHC RDW Plt Count MPV Immature Gran % (Auto) Neut % (Auto) Lymph % (Auto) [place] % (Auto) Eos % (Auto) Baso % (Auto) Lymph # (Auto) [place] # (Auto) Eos # (Auto) Baso # (Auto) Abs Immat Gran (auto) Absolute Neuts (auto) Absolute Nucleated RBC Nucleated RBC % (auto) O2 Saturation 95.0 ABG pH at Pt Temp 7.45 ABG pH (Temp Correct) 7.46 H ABG pCO2 at Pt Temp 21 L ABG pCO2 (Temp Corrct 20 L* ABG pO2 at Pt Temp 86 ABG pO2 (Temp Correct 81 L ABG HCO3 14 L ABG Base Excess (Actual) -6.4 Sodium Potassium Chloride Carbon Dioxide Anion Gap BUN Creatinine Estim Creat Clear Calc Estimated GFR Random Glucose Lactic Acid 3.6 H* Lactic Acid Fup @ 2Hr 2.9 H* Lactic Acid Fup @ 4Hr Calcium Total Bilirubin AST ALT Alkaline Phosphatase Total Protein Albumin 05/15/20 05/15/20 05/15/20 02:08 06:31 06:31 WBC 8.2 RBC 4.80 Hgb 14.3 Hct 45.9 MCV 95.6 MCH 29.8 MCHC 31.2 RDW 15.8 Plt Count 374 MPV 10.8 Immature Gran % (Auto) 0.6 H Neut % (Auto) 82.4 H Lymph % (Auto) 10.7 L [place] % (Auto) 6.2 Eos % (Auto) 0.0 Baso % (Auto) 0.1 Lymph # (Auto) 0.9 L [place] # (Auto) 0.5 Eos # (Auto) 0.0 Baso # (Auto) 0.0 Abs Immat Gran (auto) 0.05 H Absolute Neuts (auto) 6.8 Absolute Nucleated RBC 0.030 H Nucleated RBC % (auto) 0.4 H O2 Saturation ABG pH at Pt Temp ABG pH (Temp Correct) ABG pCO2 at Pt Temp ABG pCO2 (Temp Corrct ABG pO2 at Pt Temp ABG pO2 (Temp Correct ABG HCO3 ABG Base Excess (Actual) Sodium 140 Potassium 4.6 Chloride 106 Carbon Dioxide 21 L Anion Gap 18 BUN 37 H Creatinine 1.43 H Estim Creat Clear Calc 32.0 Estimated GFR 36 Random Glucose 130 H Lactic Acid Lactic Acid Fup @ 2Hr Lactic Acid Fup @ 4Hr 2.6 H* Calcium 8.9 Total Bilirubin 0.9 AST 22 ALT 15 Alkaline Phosphatase 184 H D Total Protein 6.5 Albumin 3.1 L 05/15/20 05/15/20 06:31 09:28 WBC RBC Hgb Hct MCV MCH MCHC RDW Plt Count MPV Immature Gran % (Auto) Neut % (Auto) Lymph % (Auto) [place] % (Auto) Eos % (Auto) Baso % (Auto) Lymph # (Auto) [place] # (Auto) Eos # (Auto) Baso # (Auto) Abs Immat Gran (auto) Absolute Neuts (auto) Absolute Nucleated RBC Nucleated RBC % (auto) O2 Saturation ABG pH at Pt Temp ABG pH (Temp Correct) ABG pCO2 at Pt Temp ABG pCO2 (Temp Corrct ABG pO2 at Pt Temp ABG pO2 (Temp Correct ABG HCO3 ABG Base Excess (Actual) Sodium Potassium Chloride Carbon Dioxide Anion Gap BUN Creatinine Estim Creat Clear Calc Estimated GFR Random Glucose Lactic Acid 2.5 H* Lactic Acid Fup @ 2Hr 3.5 H* Lactic Acid Fup @ 4Hr Calcium Total Bilirubin AST ALT Alkaline Phosphatase Total Protein Albumin Imaging Radiologist's impression: Impressions Chest X-Ray 05/14/20 21:20 IMPRESSION: Small bilateral pleural effusions with adjacent atelectasis versus infiltrates, decreased when compared to the recent chest CT. Abd US Ao-IVC-BPG 05/15/20 08:50 IMPRESSION: 1. The arteries to the lower extremities are patent bilaterally. 2. BRONSON on the right is normal at 0.99. BRONSON on the left demonstrates mild peripheral arterial disease at 0.85. Duplex Scan Lower Extremity Artery 05/15/20 10:35 IMPRESSION: 1. The arteries to the lower extremities are patent bilaterally. 2. BRONSON on the right is normal at 0.99. BRONSON on the left demonstrates mild peripheral arterial disease at 0.85. Progress Note: A&P Assessment and plan (1) Congestive heart failure: Status: Acute Assessment and Plan: Congestive heart failure predominantly right-sided heart failure with significant enlargement right-sided chambers with severe tricuspid regurgitation, suggestive of cor pulmonale. Reason for our right-sided enlargement could be secondary to pulmonary parenchymal disease. However pulmonary thromboembolic disease is also likely. She still appears to be fluid overloaded. Continue gentle diuresis with Lasix 20 mg IV b.i.d.. Continue strict intake and output chart. Continue to monitor blood pressure and renal function closely. Trend BNP. Prognosis is guarded. Please help Pulmonary input as well. (2) Elevated lactic acid level: Status: Acute Assessment and Plan: Elevated lactic acid of unclear etiology question related to infectious source with her peripheral gangrene. Not sure if this is related to hypoperfusion related to congestive heart failure, highly unlikely though. Will follow the patient Fall Risk Details Current Medications: Current Medications Generic Name Dose Route Start Last Admin Trade Name Linda PRN Reason Stop Dose Admin Acetaminophen 650 mg 05/13/20 23:02 Acetaminophen 325 Mg Tablet PO Q6H PRN Pain, Mild (Pain Scale 1-3) Albuterol/Ipratropium 3 ml 05/14/20 08:00 05/15/20 07:37 Albuterol/Iprat 2.5/0.5mg 3 Ml Ampul.Neb INHALE Not Given RQ6H WHILE AWAKE SANTOSH Albuterol/Ipratropium 3 ml 05/14/20 08:00 05/15/20 12:11 Albuterol/Iprat 2.5/0.5mg 3 Ml Ampul.Neb INHALE 3 ml RQ4H WHILE AWAKE SANTOSH Administration Aspirin 81 mg 05/14/20 09:00 05/15/20 08:22 Aspirin Enteric Coated 81 Mg Tablet. PO 81 mg DAILY SANTOSH Administration Furosemide 20 mg 05/15/20 12:00 Furosemide 20 Mg/2 Ml Vial IVPUSH Q12H [facility] Protocol Heparin Sodium (Porcine) 5,000 unit 05/13/20 23:15 05/15/20 08:22 Heparin Sodium,Porcine 5,000 Unit/Ml Vial SUBCUT 5,000 unit Q8H SANTOSH Administration Piperacillin Sod/Tazobactam 50 mls @ 100 mls/hr 05/14/20 04:00 05/15/20 11:55 Sod 3.375 gm/ Sodium Chloride IV Infused Q6H SANTOSH Infusion Vancomycin HCl 1,000 mg/ 270 mls @ 270 mls/hr 05/15/20 02:00 05/15/20 03:15 Sodium Chloride IV Infused Q24H SANTOSH Infusion Methylprednisolone Sodium Succinate 40 mg 05/14/20 06:00 05/15/20 06:09 Methylprednisolone Sod Succ 40 Mg/Ml Vial IVPUSH 40 mg Q8H SANTOSH Administration Pharmacy Consult 1 each 05/14/20 01:26 Consult Rx Vancomycin Dosing MISCELLANE DAILY PRN Consult order Sodium Chloride 3 ml 05/14/20 00:00 05/15/20 08:23 0.9 % Sodium Chloride Flush 3 Ml Syringe IVFLUSH 3 ml QSHIFT SANTOSH Administration Time Spent With Patient Time: Total time spent is greater than 50% in coordination of care (as documented) at patient's floor/unit and/or counseling patient: Time with patient: 25 - 35 minutes
[2020-05-15] MEDS: Furosemide 20 MG/2 ML VIAL IVPUSH ×2 (12:32→23:33)
[2020-05-15 13:12] LABS: ~Lactic Acid-LAB USE ONLY 3.6 mmol/L (0.5-2.0)
--- NOTE | 2020-05-15 21:16 | P.CNID_ITS ---
History of Present Illness Data of Consult Service Date: 05/14/20 Requesting physician: Chapincito Machado Primary Care Provider: None Physician HPI Reason for consult: osteomyelitis right foot She presents with shortness of breath and chest discomfort. She has no fever or chills She has chronic gangrenous areas fingers and toes from [employer] disease but has stopped smoking 3 years ago. XRay shows osteomyelitis right great toe Review of Systems Review of Systems: Yes all other systems are reviewed and are negative [facility] Past Medical History Medical History [place] disease Osteomyelitis Pleural effusion Family History Family history: reviewed and not pertinent Social History Social History Household Members: Family Housing: Apartment Alcohol intake: former Smoking Status: Former smoker service: No Current occupational status: retired [employer] Allergies Allergy/AdvReac Type Severity Reaction Status Date / Time No Known Allergies Allergy Verified 05/13/20 15:49 Active Medications: Current Medications Generic Name Dose Route Start Last Admin Trade Name Freq PRN Reason Stop Dose Admin Acetaminophen 650 mg 05/13/20 23:02 Acetaminophen 325 Mg Tablet PO Q6H PRN Pain, Mild (Pain Scale 1-3) Albuterol/Ipratropium 3 ml 05/14/20 08:00 05/15/20 21:08 Albuterol/Iprat 2.5/0.5mg 3 Ml Ampul.Neb INHALE 3 ml RQ6H WHILE AWAKE SANTOSH Administration Albuterol/Ipratropium 3 ml 05/14/20 08:00 05/15/20 21:12 Albuterol/Iprat 2.5/0.5mg 3 Ml Ampul.Neb INHALE Not Given RQ4H WHILE AWAKE SANTOSH Aspirin 81 mg 05/14/20 09:00 05/15/20 08:22 Aspirin Enteric Coated 81 Mg Tablet. PO 81 mg DAILY SANTOSH Administration Furosemide 20 mg 05/15/20 12:00 05/15/20 12:32 Furosemide 20 Mg/2 Ml Vial IVPUSH 20 mg Q12H SANTOSH Administration Protocol Heparin Sodium (Porcine) 5,000 unit 05/13/20 23:15 05/15/20 15:06 Heparin Sodium,Porcine 5,000 Unit/Ml Vial SUBCUT 5,000 unit Q8H SANTOSH Administration Piperacillin Sod/Tazobactam 50 mls @ 100 mls/hr 05/14/20 04:00 05/15/20 15:52 Sod 3.375 gm/ Sodium Chloride IV Infused Q6H S[facility]H Infusion Vancomycin HCl 1,000 mg/ 270 mls @ 270 mls/hr 05/15/20 02:00 05/15/20 03:15 Sodium Chloride IV Infused Q24H S[facility]H Infusion Methylprednisolone Sodium Succinate 40 mg 05/14/20 06:00 05/15/20 15:06 Methylprednisolone Sod Succ 40 Mg/Ml Vial IVPUSH 40 mg Q8H SANTOSH Administration Pharmacy Consult 1 each 05/14/20 01:26 Consult Rx Vancomycin Dosing MISCELLANE DAILY PRN Consult order Sodium Chloride 3 ml 05/14/20 00:00 05/15/20 15:06 0.9 % Sodium Chloride Flush 3 Ml Syringe IVFLUSH 3 ml QSHIFT SANTOSH Administration Home Medications Medication Instructions Recorded Confirmed Last Taken Type aspirin 81 mg PO DAILY 05/13/20 05/13/20 Unknown History Physical Exam Vital Signs: Vital Signs: Last Vital Signs Temp 98.8 F 05/15/20 19:28 Pulse 113 H 05/15/20 21:10 Resp 18 05/15/20 19:28 BP 119/57 L 05/15/20 19:28 Pulse Ox 98 05/15/20 19:28 Body Mass Index 23.3 Const: General: cooperative Orientation/consciousness: patient oriented x3 HENMT: Head: Yes normal to inspection Mouth: Normal oral and palatal mucosa present Eyes: General: appearance normal, both eyes and all related structures Resp: Effort & Inspection: normal respiratory effort Cardio: Rate: regular rate Rhythm: regular rhythm GI: Palpation (GI): Soft to palpation and nontender : General: Yes no CVA tenderness Back/Spine/Pelvis: Back: no CVA tenderness Skin: General skin exam: no rashes or lesions noted Neuro: General: patient oriented x3 Extrem: Other: right necrotic great toe left less necrosis fingers necrosis bilateral Results Labs CBC & Chem 7: 05/21/20 06:14 05/24/20 05:36 Labs: Short CBC 05/15/20 Range/Units 06:31 WBC 8.2 (4.8-10.8) X10*3/uL Hgb 14.3 (12.0-16.0) g/dl Hct 45.9 (37-47) % Plt Count 374 (160-400) X10*3/uL BMP 05/15/20 06:31 Sodium 140 Potassium 4.6 Chloride 106 Carbon Dioxide 21 L BUN 37 H Creatinine 1.43 H Calcium 8.9 Liver Function 05/15/20 Range/Units 06:31 Total Bilirubin 0.9 (0.0-1.0) mg/dL AST 22 (5-31) U/L ALT 15 (0-31) U/L Alkaline Phosphatase 184 H D (39-117) U/L Albumin 3.1 L (3.5-5.0) g/dL Microbiology Microbiology Results: Microbiology 05/13/20 16:16 Blood - Venous Blood Culture - Preliminary No growth after 48 hours. 05/13/20 16:03 Blood - Venous Blood Culture - Preliminary No growth after 48 hours. 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
[2020-05-16] VITALS (12 sets, daily range): BP systolic 101–119; BP diastolic 68–87; PULSE 103–111; RESP 18–30; TEMP 36.2–37; O2SAT 88–93; BMI 24.5
[2020-05-16 01:39] LABS: Vancomycin Random 15.7 mcg/mL (15-20)
[2020-05-16] MEDS: vancomycin HCL 1,000 MG in 0.9 % Sodium Chloride 250 ML 270 MG IV (02:33)
[2020-05-16] MEDS: Piperacillin Sodium/Tazobactam 3.375 GM in 0.9 % Sodium Chloride 50 ML IV ×4 (03:54→21:01)
--- NOTE | 2020-05-16 04:08 | PC.NURSE ---
Patient's alba bag noted to be leaking on the floor. Bag emptied for 600ml and significant amount noted on floor (maybe another 300-400 ml). Alba bag changed and draining. Bag place in wash basin to monitor for any further leaks.
[2020-05-16] MEDS: methylPREDNISolone Sod Succ 40 MG/ML VIAL IVPUSH (05:44)
[2020-05-16 06:48] LABS: Creatinine Clr Calc Pharmacy 30.3; Estimated Glomerular Filt Rate 34
[2020-05-16] MEDS: Albuterol/Iprat 2.5/0.5MG 3 ML AMPUL.NEB INHALE ×3 (07:56→20:25)
[2020-05-16] MEDS: Aspirin Enteric Coated 81 MG TABLET.DR PO (08:02)
[2020-05-16] MEDS: Heparin Sodium,Porcine 5,000 UNIT/ML VIAL 5000 UNIT SUBCUT ×3 (08:02→23:59)
[2020-05-16] MEDS: 0.9 % Sodium Chloride Flush 3 ML SYRINGE IVFLUSH ×2 (08:05→16:11)
--- NOTE | 2020-05-16 10:14 | P.PNCA_ITS ---
Subjective Subjective Date of Service: 05/16/20 Principal diagnosis: Congestive heart failure predominantly right-sided Interval history: She states that she feels okay. No specific complaints. Review of Systems Review of Systems Yes all other systems are reviewed and are negative Cardiovascular: Reports as per HPI, Reports no additional cardiovascular complaints, Denies acrocyanosis, Denies cool extremities, Denies painful finger tips, Denies chest pain, Denies chest pain at rest, Denies diaphoresis, Denies syncope, Denies irregular heart rhythm, Denies claudication, Denies leg edema, Denies lightheadedness, Denies palpitations and Denies dyspnea Respiratory: Denies dyspnea Denies syncope Endocrine: Denies palpitations Physical Exam Vital Signs: Last Vital Signs Temp 97.1 F 05/16/20 07:42 Pulse 106 H 05/16/20 07:58 Resp 20 05/16/20 07:42 BP 101/72 05/16/20 07:42 Pulse Ox 88 L 05/16/20 07:42 Body Mass Index 24.5 Const General: cooperative, comfortable and no acute distress Orientation/consciousness: patient oriented x3 HENMT Other: Unremarkable Neck Neck: Yes normal visual inspection Chest Chest palpation & inspection: normal inspection of the chest Resp Auscultation: clear to auscultation bilaterally, no crackles and no wheezes Cardio Jugular venous distension: no JVD Palpation: normal PMI Heart sounds: S1 normal heart sound present, S2 normal heart sound present, no gallops, Murmur heart sound present systolic holo and no rubs GI Palpation (GI): Soft to palpation Back/Spine/Pelvis Other: unremarkable Skin General skin exam: no rashes or lesions noted Neuro General: patient oriented x3 Extrem General: Yes no clubbing, cyanosis or edema Psych Mental Status: mental status grossly normal Results Labs and Meds Result diagrams: 05/15/20 06:31 05/16/20 00:52 Lab results: Laboratory Results - last 24 hr 05/15/20 05/15/20 05/16/20 09:28 12:20 00:52 Creatinine Estim Creat Clear Calc Estimated GFR Lactic Acid Fup @ 2Hr 3.5 H* Lactic Acid Fup @ 4Hr 3.6 H* Random Vancomycin 15.7 05/16/20 00:52 Creatinine 1.51 H Estim Creat Clear Calc 30.3 Estimated GFR 34 Lactic Acid Fup @ 2Hr Lactic Acid Fup @ 4Hr Random Vancomycin Imaging Radiologist's impression: Impressions Abd US Ao-IVC-BPG 05/15/20 08:50 IMPRESSION: 1. The arteries to the lower extremities are patent bilaterally. 2. BRONSON on the right is normal at 0.99. BRONSON on the left demonstrates mild peripheral arterial disease at 0.85. Duplex Scan Lower Extremity Artery 05/15/20 10:35 IMPRESSION: 1. The arteries to the lower extremities are patent bilaterally. 2. BRONSON on the right is normal at 0.99. BRONSON on the left demonstrates mild peripheral arterial disease at 0.85. Echocardiogram- 05/14/2020 Conclusions: - 1. Severely dilated right-sided chambers with RV systolic dysfunction 2. Severe tricuspid regurgitation 3. Normal LV systolic function 4. Severely elevated right ventricular systolic pressure 5. No gross pericardial effusion Progress Note: A&P Assessment and plan (1) Acute on chronic right heart failure: Status: Acute (2) Nonrheumatic tricuspid valve regurgitation: Status: Acute Assessment and Plan: Per I/o charting, she is -690ml so far. Her creatinine is slowly uptrending. BUN is also going up. May hold further IV diuretics and reassess tomorrow. Otherwise, most likely all from COPD/pulmonary disease. Per CTA, there was no evidence of PE. Fall Risk Details Current Medications: Current Medications Generic Name Dose Route Start Last Admin Trade Name Freq PRN Reason Stop Dose Admin Acetaminophen 650 mg 05/13/20 23:02 Acetaminophen 325 Mg Tablet PO Q6H PRN Pain, Mild (Pain Scale 1-3) Albuterol/Ipratropium 3 ml 05/14/20 08:00 05/16/20 07:56 Albuterol/Iprat 2.5/0.5mg 3 Ml Ampul.Neb INHALE 3 ml RQ6H WHILE AWAKE SANTOSH Administration Albuterol/Ipratropium 3 ml 05/14/20 08:00 05/16/20 08:18 Albuterol/Iprat 2.5/0.5mg 3 Ml Ampul.Neb INHALE Not Given RQ4H WHILE AWAKE SANTOSH Aspirin 81 mg 05/14/20 09:00 05/16/20 08:02 Aspirin Enteric Coated 81 Mg Tablet. PO 81 mg DAILY SANTOSH Administration Furosemide 20 mg 05/15/20 12:00 05/15/20 23:33 Furosemide 20 Mg/2 Ml Vial IVPUSH 20 mg Q12H SANTOSH Administration Protocol Heparin Sodium (Porcine) 5,000 unit 05/13/20 23:15 05/16/20 08:02 Heparin Sodium,Porcine 5,000 Unit/Ml Vial SUBCUT 5,000 unit Q8H SANTOSH Administration Piperacillin Sod/Tazobactam 50 mls @ 100 mls/hr 05/14/20 04:00 05/16/20 04:36 Sod 3.375 gm/ Sodium Chloride IV Infused Q6H SANTOSH Infusion Vancomycin HCl 500 mg/ Sodium 110 mls @ 110 mls/hr 05/17/20 02:00 Chloride IV Q24H SANTOSH Methylprednisolone Sodium Succinate 40 mg 05/14/20 06:00 05/16/20 05:44 Methylprednisolone Sod Succ 40 Mg/Ml Vial IVPUSH 40 mg Q8H SANTOSH Administration Pharmacy Consult 1 each 05/14/20 01:26 Consult Rx Vancomycin Dosing MISCELLANE DAILY PRN Consult order Sodium Chloride 3 ml 05/14/20 00:00 05/16/20 08:05 0.9 % Sodium Chloride Flush 3 Ml Syringe IVFLUSH 3 ml QSHIFT SANTOSH Administration Time Spent With Patient Time: Total time spent is greater than 50% in coordination of care (as documented) at patient's floor/unit and/or counseling patient: Time with patient: less than 15 minutes
--- NOTE | 2020-05-16 10:57 | P.CONGS_ITS ---
History of Present Illness Consult details Consult date: 05/16/20 Narrative: Frail 69-year-old female patient presents for evaluation of nonhealing ulcers on the hands and feet. She has a known diagnosis of Buergers disease. This was diagnosed approximately 3 years prior at [facility]. Her gangrene in bilateral lower extremities are starting to progress. She presented with acute exacerbation of her congestive heart failure. She now presents for evaluation of bilateral lower extremities. Review of Systems Review of Systems: Yes all other systems are reviewed and are negative Constitutional: Constitutional: Reports no additional constitutional complaints ENT: Reports Normal hearing present Cardiovascular: Cardiovascular: Denies chest pain, Denies chest pain at rest, Denies chest pain with activity and Denies pedal edema Respiratory: Respiratory: Denies cough Gastrointestinal: Gastrointestinal: Denies abdominal pain Musculoskeletal: Musculoskeletal: Denies abnormal gait, Denies muscle cramps and Denies radiating pain into limb Integumentary/Breasts: Skin/Breast: Denies skin ulcer and Denies wounds Neurologic: Reports Normal hearing present and Denies abnormal gait Psychiatric: Psychiatric: Reports no additional psychiatric complaints [facility] Past Medical History Medical History (Updated 05/16/20 @ 11:01 by Art Sun MD) Talamantes disease Osteomyelitis Family History Family history: reviewed and not pertinent Social History Social History Household Members: Family Housing: Apartment Do you presently have visiting nurse or other home services: No Alcohol intake: former Smoking Status: Former smoker Smoked in Last 30 Days: No Use of substances other than those prescribed or required for medical reasons: No Currently Displaying Signs/Symptoms of Drug Intoxication Withdrawal: No Have you been hit, kicked, punched, or otherwise hurt by someone within the past year? If so, by whom?: No Do you feel safe in your current relationship?: No Current Relationship Is there a partner from a previous relationship who is making you feel unsafe now?: No Are you made to feel afraid or neglected: No Advance Directives: No Advance Directives Information Provided: Yes Do you have thoughts of harming others: None Do you have a plan to hurt others: No Plan Recently lost weight without trying: No service: No Current occupational status: retired Meds Allergies Allergy/AdvReac Type Severity Reaction Status Date / Time No Known Allergies Allergy Verified 05/13/20 15:49 Active Medications: Current Medications Generic Name Dose Route Start Last Admin Trade Name Linda PRN Reason Stop Dose Admin Acetaminophen 650 mg 05/13/20 23:02 Acetaminophen 325 Mg Tablet PO Q6H PRN Pain, Mild (Pain Scale 1-3) Albuterol/Ipratropium 3 ml 05/14/20 08:00 05/16/20 07:56 Albuterol/Iprat 2.5/0.5mg 3 Ml Ampul.Neb INHALE 3 ml RQ6H WHILE AWAKE SANTOSH Administration Albuterol/Ipratropium 3 ml 05/14/20 08:00 05/16/20 08:18 Albuterol/Iprat 2.5/0.5mg 3 Ml Ampul.Neb INHALE Not Given RQ4H WHILE AWAKE SANT[facility]H Aspirin 81 mg 05/14/20 09:00 05/16/20 08:02 Aspirin Enteric Coated 81 Mg Tablet. PO 81 mg DAILY SANTOSH Administration Heparin Sodium (Porcine) 5,000 unit 05/13/20 23:15 05/16/20 08:02 Heparin Sodium,Porcine 5,000 Unit/Ml Vial SUBCUT 5,000 unit Q8H [facility] Administration Piperacillin Sod/Tazobactam 50 mls @ 100 mls/hr 05/14/20 04:00 05/16/20 10:40 Sod 3.375 gm/ Sodium Chloride IV 100 mls/hr Q6H [facility] Administration Vancomycin HCl 500 mg/ Sodium 110 mls @ 110 mls/hr 05/17/20 02:00 Chloride IV Q24H [facility] Methylprednisolone Sodium Succinate 40 mg 05/14/20 06:00 05/16/20 05:44 Methylprednisolone Sod Succ 40 Mg/Ml Vial IVPUSH 40 mg Q8H [facility] Administration Pharmacy Consult 1 each 05/14/20 01:26 Consult Rx Vancomycin Dosing MISCELLANE DAILY PRN Consult order Sodium Chloride 3 ml 05/14/20 00:00 05/16/20 08:05 0.9 % Sodium Chloride Flush 3 Ml Syringe IVFLUSH 3 ml QSHIFT [facility] Administration Home Medications Medication Instructions Recorded Confirmed Last Taken Type aspirin 81 mg PO DAILY 05/13/20 05/13/20 Unknown History Physical Exam Vital Signs: Vital Signs: Last Vital Signs Temp 97.1 F 05/16/20 07:42 Pulse 106 H 05/16/20 07:58 Resp 20 05/16/20 07:42 BP 101/72 05/16/20 07:42 Pulse Ox 88 L 05/16/20 07:42 Body Mass Index 24.5 Const: General: cooperative, healthy appearing and comfortable Orientation/consciousness: oriented to person, oriented to place and oriented to time HENMT: Head: Yes normal to inspection Neck: Neck: Yes normal visual inspection Carotids: no bruits Chest: Chest palpation & inspection: normal inspection of the chest Resp: Effort & Inspection: normal respiratory effort and able to speak in complete sentences Auscultation: clear to auscultation bilaterally, no crackles, no rales, no rhonchi and no wheezes Cardio: Rate: regular rate Rhythm: regular rhythm Heart sounds: S1 normal heart sound present and S2 normal heart sound present Bruits: no carotid bruits Peripheral pulses: dorsalis pedis present (Bilateral DP signals) GI: Inspection: Yes normal to inspection Skin: Wounds: wounds noted (Gangrene of bilateral upper extremities and lower extremities, right foot i) Hair: normal Neuro: General: oriented to person, oriented to place and oriented to time Cranial nerves: Yes CN's II-XII intact bilaterally and Yes Normal hearing present Cognition (Neuro): normal cognition Motor exam (neuro): 5/5 motor strength present throughout Extrem: Other: venous exam: No significant superficial varicosities or spider telangiectasias, minimal edema General: No clubbing, No cyanosis and No edema Psych: Appearance: grossly normal Mental Status: mental status grossly normal Speech and movement: Normal speech and movement present Results Labs Result diagrams: 05/15/20 06:31 05/16/20 00:52 Labs: Abnormal lab results 05/15/20 05/15/20 05/16/20 Range/Units 09:28 12:20 00:52 Creatinine 1.51 H (0.5-1.4) mg/dL Lactic Acid Fup @ 2Hr 3.5 H* (0.5-2.0) mmol/L Lactic Acid Fup @ 4Hr 3.6 H* (0.5-2.0) mmol/L BMP 05/16/20 00:52 Creatinine 1.51 H Urine 05/13/20 Range/Units 20:52 Urine Color YELLOW Urine Appearance CLEAR Urine pH 5.5 (5.0-8.0) Ur Specific [place] 1.015 (1.005-1.025) Urine Protein NEG (NEG-TRACE) MG/DL Urine Glucose (UA) NEG (NEG) MG/DL All other labs normal. Assessment and Plan (1) Thromboangiitis obliterans (Buerger's disease): Status: Acute In short patient has progressing Buerger's disease. Arterial testing shows to be within normal limits. She will most likely require bilateral transmetatarsal amputations at some point. The fear is that it may not heal. At the current time she has acute congestive heart failure. We will allow that to resolve prior to any intervention. Will plan surgery subsequent to that. We will follow with you. Thank you for allowing us to assist in her care.
--- NOTE | 2020-05-16 11:00 | HO.PM.IMPN ---
Subjective Subjective Date of Service: 05/16/20 Interval History: Seen in f/u for heart failure exacerbation, overall better, Cr is going up ROS: Gen: no fever Resp: no sob, no cough CV: no chest, no HERNANDEZ, no leg edema GI: No n/v, no abd pain Neuro: No confusion Physical Exam Vital Signs: Vital Signs: Last Vital Signs Temp 97.1 F 05/16/20 07:42 Pulse 106 H 05/16/20 07:58 Resp 20 05/16/20 07:42 BP 101/72 05/16/20 07:42 Pulse Ox 88 L 05/16/20 07:42 Body Mass Index 24.5 Const: Other: General: AO X 3, no acute distress Resp: CTA bilateral CVS: S1,S2,RRR GI: +BS, NT, no distention Skin:necrotic toes and fingers (see pictures) Neuro: motor grossly intact Psych: appropriate affect Objective Data Current Medications Generic Name Dose Route Start Last Admin Trade Name Freq PRN Reason Stop Dose Admin Acetaminophen 650 mg 05/13/20 23:02 Acetaminophen 325 Mg Tablet PO Q6H PRN Pain, Mild (Pain Scale 1-3) Albuterol/Ipratropium 3 ml 05/14/20 08:00 05/16/20 07:56 Albuterol/Iprat 2.5/0.5mg 3 Ml Ampul.Neb INHALE 3 ml RQ6H WHILE AWAKE SANTOSH Administration Albuterol/Ipratropium 3 ml 05/14/20 08:00 05/16/20 08:18 Albuterol/Iprat 2.5/0.5mg 3 Ml Ampul.Neb INHALE Not Given RQ4H WHILE AWAKE [facility] Aspirin 81 mg 05/14/20 09:00 05/16/20 08:02 Aspirin Enteric Coated 81 Mg Tablet. PO 81 mg DAILY [facility] Administration Heparin Sodium (Porcine) 5,000 unit 05/13/20 23:15 05/16/20 08:02 Heparin Sodium,Porcine 5,000 Unit/Ml Vial SUBCUT 5,000 unit Q8H [facility] Administration Piperacillin Sod/Tazobactam 50 mls @ 100 mls/hr 05/14/20 04:00 05/16/20 10:40 Sod 3.375 gm/ Sodium Chloride IV 100 mls/hr Q6H [facility] Administration Vancomycin HCl 500 mg/ Sodium 110 mls @ 110 mls/hr 05/17/20 02:00 Chloride IV Q24H [facility] Methylprednisolone Sodium Succinate 40 mg 05/14/20 06:00 05/16/20 05:44 Methylprednisolone Sod Succ 40 Mg/Ml Vial IVPUSH 40 mg Q8H [facility] Administration Pharmacy Consult 1 each 05/14/20 01:26 Consult Rx Vancomycin Dosing MISCELLANE DAILY PRN Consult order Sodium Chloride 3 ml 05/14/20 00:00 05/16/20 08:05 0.9 % Sodium Chloride Flush 3 Ml Syringe IVFLUSH 3 ml QSHIFT [facility] Administration Labs CBC & Chem 7: 05/15/20 06:31 05/16/20 00:52 Microbiology Microbiology Results: Microbiology 05/13/20 16:16 Blood - Venous Blood Culture - Preliminary No growth after 48 hours. 05/13/20 16:03 Blood - Venous Blood Culture - Preliminary No growth after 48 hours. 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 Noted to have new onset CHF. New CHF--seem compensated, negative 600 cc of fuid and feels better Creatinine is going up so stop IV Lasix and reassess tomorrow Echo today Cardiology following SHASHANK--likely from Lasix, stop Lasix and reassess tomorrow and if still going up then add fluid Acute hypoxic respiratory failure likely d/t comibnnation of heart failure, Buergers's disease, and possble copd -Continue O2 (difficulty to get a good o2 sat due to digit ischemia, and foward O2 monitoring not reliable, will get baseline ABG COPD exacerbation, CT shows no pulmonary embolism DC Solumdrol and add Prednisone 20 daily continue bronchodilators by neb lactic acidosis likely chronic from chronic ischemic limbs Gangrene of the toes and fingers: Foot x-ray shows findings consistent with osteomyelitis, likley chronic, negative culture Continue Vanco, renally adjusted follow-up cultures vascular surgery will do procedure on outpatient basis ID consult pending DVT prophylaxis: Subcu heparin Code status: Full code
[2020-05-16 13:24] LABS: ABG Base Excess -5.8 mmol/L; ABG HCO3 15 mmol/L (22-26); ABG pCO2 20 mmHg (32-45); ABG pH 7.46 (7.35-7.45); ABG pO2 58 mmHg (83-108)
--- NOTE | 2020-05-16 13:30 | MHC.CM.PN ---
per multi dis rounds pt not ready for dc ?gangrene
[2020-05-16 15:54] LABS: ABG Refer to POC result
--- NOTE | 2020-05-16 17:08 | PC.NURSE ---
Patient refusing repositioning. Patient coccyx and buttocks are red but blanchable. Patient educated on importance of frequent repositioning to prevent pressure injury. Patient continuing to refuse repositioning. Will try again later.
[2020-05-17] VITALS (10 sets, daily range): BP systolic 103–143; BP diastolic 72–87; PULSE 98–121; RESP 15–28; TEMP 36.1–37.7; O2SAT 90–100; BMI 24.0
[2020-05-17] MEDS: Acetaminophen 325 MG TABLET 650 MG PO ×2 (00:10→06:02)
[2020-05-17] MEDS: 0.9 % Sodium Chloride Flush 3 ML SYRINGE IVFLUSH ×4 (00:14→22:45)
[2020-05-17] MEDS: Piperacillin Sodium/Tazobactam 3.375 GM in 0.9 % Sodium Chloride 50 ML IV ×4 (04:41→22:45)
[2020-05-17] MEDS: Heparin Sodium,Porcine 5,000 UNIT/ML VIAL 5000 UNIT SUBCUT ×3 (06:01→22:44)
[2020-05-17 06:44] LABS: Hematocrit 47.7 % (37-47); Hemoglobin 14.8 g/dl (12.0-16.0); Mean Corpuscular Hemoglobin 29.2 pg (27.0-33.0); Mean Corpuscular Volume 94.3 fL (80-98); Mean Platelet Volume 10.5 fL (9.4-12.3); NRBC Pct Auto 0.3 /100WBC (0.0-0.2); Platelet Count 373 X10*3/uL (160-400); Red Blood Count 5.06 X10*6/uL (4.20-5.50)
[2020-05-17 06:56] LABS: Anion Gap 22 (12-20); Blood Urea Nitrogen 50 mg/dL (9-16); Calcium 8.4 mg/dL (8.4-10.2); Carbon Dioxide 14 mmol/L (22-29); Chloride 107 mmol/L (96-108); Estimated Glomerular Filt Rate 42; Glucose Random 95 mg/dL (60-115); Potassium 4.5 mmol/L (3.3-5.1); Sodium 138 mmol/L (135-145)
[2020-05-17] MEDS: Albuterol/Iprat 2.5/0.5MG 3 ML AMPUL.NEB INHALE ×3 (07:19→19:30)
[2020-05-17] MEDS: Aspirin Enteric Coated 81 MG TABLET.DR PO (09:21)
[2020-05-17] MEDS: predniSONE 20 MG TABLET PO (09:21)
--- NOTE | 2020-05-17 10:16 | PM.PNCARD ---
Subjective Subjective Date of Service: 05/17/20 Principal diagnosis: Congestive heart failure predominantly right-sided Interval history: States that she feels ok. No specific complaints. Review of Systems Review of Systems Yes all other systems are reviewed and are negative Cardiovascular: Reports as per HPI, Reports no additional cardiovascular complaints, Denies acrocyanosis, Denies cool extremities, Denies painful fingertips, Denies chest pain, Denies chest pain at rest, Denies diaphoresis, Denies syncope, Denies irregular heart rhythm, Denies claudication, Denies leg edema, Denies lightheadedness, Denies palpitations and Denies dyspnea Respiratory: Denies dyspnea Denies syncope Endocrine: Denies palpitations Physical Exam Vital Signs: Last Vital Signs Temp 99.8 F 05/17/20 07:22 Pulse 102 H 05/17/20 07:22 Resp 25 H 05/17/20 07:22 BP 109/76 05/17/20 07:22 Pulse Ox 90 L 05/17/20 09:20 Body Mass Index 24.0 Const General: cooperative, comfortable and no acute distress Orientation/consciousness: patient oriented x3 HENMT Other: Unremarkable Neck Neck: Yes normal visual inspection Chest Chest palpation & inspection: normal inspection of the chest Resp Auscultation: clear to auscultation bilaterally, no crackles and no wheezes Cardio Jugular venous distension: no JVD Palpation: normal PMI Heart sounds: S1 normal heart sound present, S2 normal heart sound present, no gallops, Murmur heart sound present systolic holo and no rubs GI Palpation (GI): Soft to palpation Back/Spine/Pelvis Other: unremarkable Skin General skin exam: no rashes or lesions noted Neuro General: patient oriented x3 Extrem General: Yes no clubbing, cyanosis or edema Psych Mental Status: mental status grossly normal Results Labs and Meds Result diagrams: 05/17/20 05:24 05/17/20 05:24 Lab results: Laboratory Results - last 24 hr 05/16/20 05/17/20 05/17/20 13:14 05:24 05:24 WBC 14.0 H RBC 5.06 Hgb 14.8 Hct 47.7 H MCV 94.3 MCH 29.2 MCHC 31.0 RDW 16.0 Plt Count 373 MPV 10.5 Absolute Nucleated RBC 0.040 H Nucleated RBC % (auto) 0.3 H O2 Saturation 86.0 ABG pH at Pt Temp 7.46 H ABG pCO2 at Pt Temp 20 L* ABG pO2 at Pt Temp 58 L ABG HCO3 15 L ABG Base Excess (Actual) -5.8 Sodium 138 Potassium 4.5 Chloride 107 Carbon Dioxide 14 L Anion Gap 22 H BUN 50 H Creatinine 1.27 Estim Creat Clear Calc 36.0 Estimated GFR 42 Random Glucose 95 Calcium 8.4 Progress Note: A&P Assessment and plan (1) Acute on chronic right heart failure: Status: Acute (2) Nonrheumatic tricuspid valve regurgitation: Status: Acute Assessment and Plan: She seems to be euvolemic. We can start oral diuretics from tomorrow. Creatinine today seems to be improved from yesterday. Otherwise most of her symptoms are probably from baseline COPD/pulmonary disease. Per CTA, there is no evidence of any pulmonary embolism. Fall Risk Details Current Medications: Current Medications Generic Name Dose Route Start Last Admin Trade Name Freq PRN Reason Stop Dose Admin Acetaminophen 650 mg 05/13/20 23:02 05/17/20 06:02 Acetaminophen 325 Mg Tablet PO 650 mg Q6H PRN Administration Pain, Mild (Pain Scale 1-3) Albuterol/Ipratropium 3 ml 05/14/20 08:00 05/17/20 07:19 Albuterol/Iprat 2.5/0.5mg 3 Ml Ampul.Neb INHALE 3 ml RQ6H WHILE AWAKE SANTOSH Administration Aspirin 81 mg 05/14/20 09:00 05/17/20 09:21 Aspirin Enteric Coated 81 Mg Tablet. PO 81 mg DAILY [facility]H Administration Heparin Sodium (Porcine) 5,000 unit 05/13/20 23:15 05/17/20 06:01 Heparin Sodium,Porcine 5,000 Unit/Ml Vial SUBCUT 5,000 unit Q8H [facility] Administration Piperacillin Sod/Tazobactam 50 mls @ 100 mls/hr 05/14/20 04:00 05/17/20 10:13 Sod 3.375 gm/ Sodium Chloride IV Infused Q6H [facility] Infusion Pharmacy Consult 1 each 05/14/20 01:26 Consult Rx Vancomycin Dosing MISCELLANE DAILY PRN Consult order Prednisone 20 mg 05/17/20 09:00 05/17/20 09:21 Prednisone 20 Mg Tablet PO 20 mg DAILY [facility] Administration Sodium Chloride 3 ml 05/14/20 00:00 05/17/20 09:21 0.9 % Sodium Chloride Flush 3 Ml Syringe IVFLUSH 3 ml QSHIFT [facility] Administration Time Spent With Patient Time: Total time spent is greater than 50% in coordination of care (as documented) at patient's floor/unit and/or counseling patient: Time with patient: less than 15 minutes
--- NOTE | 2020-05-17 10:56 | P.PNID_ITS ---
Subjective Subjective Date of Service: 05/17/20 Interval History: there is no change per patient Objective Data Labs CBC & Chem 7: 05/17/20 05:24 05/17/20 05:24 Labs: Laboratory Results - last 24 hr 05/16/20 05/17/20 05/17/20 13:14 05:24 05:24 WBC 14.0 H RBC 5.06 Hgb 14.8 Hct 47.7 H MCV 94.3 MCH 29.2 MCHC 31.0 RDW 16.0 Plt Count 373 MPV 10.5 Absolute Nucleated RBC 0.040 H Nucleated RBC % (auto) 0.3 H O2 Saturation 86.0 ABG pH at Pt Temp 7.46 H ABG pCO2 at Pt Temp 20 L* ABG pO2 at Pt Temp 58 L ABG HCO3 15 L ABG Base Excess (Actual) -5.8 Sodium 138 Potassium 4.5 Chloride 107 Carbon Dioxide 14 L Anion Gap 22 H BUN 50 H Creatinine 1.27 Estim Creat Clear Calc 36.0 Estimated GFR 42 Random Glucose 95 Calcium 8.4 Microbiology Microbiology Results: Microbiology 05/13/20 16:16 Blood - Venous Blood Culture - Preliminary No growth after 48 hours. 05/13/20 16:03 Blood - Venous Blood Culture - Preliminary No growth after 48 hours. Physical Exam Vital Signs: Vital Signs: Last Vital Signs Temp 99.8 F 05/17/20 07:22 Pulse 102 H 05/17/20 07:22 Resp 25 H 05/17/20 07:22 BP 109/76 05/17/20 07:22 Pulse Ox 90 L 05/17/20 09:20 Body Mass Index 24.0 Const: General: cooperative HENMT: Head: Yes normal to inspection Mouth: Normal oral and palatal mucosa present Eyes: General: appearance normal, both eyes and all related structures Resp: Effort & Inspection: normal respiratory effort Cardio: Rate: regular rate Rhythm: regular rhythm GI: Palpation (GI): Soft to palpation and nontender Extrem: Other: no change dry gangrene hands and feet Assessment and Plan Assessment and plan (1) Osteomyelitis: Problem details: She has chronic osteomyelitis feet She has dry gangrene,not curable likely with IV antibiotics Status: Acute Assessment and Plan: Would change to po Doxycycline 100 mg bid on discharge for total 30 days as well as Augmentin 500 mg daily for 14 days F/U surgery prn need Time Spent With Patient Time: Total time spent is greater than 50% in coordination of care (as jamal alvarez) at patient's floor/unit and/or counseling patient: Time with patient: 15 - 24 minutes
--- NOTE | 2020-05-17 11:49 | MHC.CM.PN ---
met with pt filed hcp pt would be agreeab le to str if iv antibiotics is the recommended treatment plan
[2020-05-17 13:22] LABS: Erythrocyte Sedimentation Rate 1 MM/HR (0-20)
--- NOTE | 2020-05-17 14:06 | HO.VASCPN ---
Subjective Subjective Date of Service: 05/17/20 Patient reports: no new complaints and feels better Interval history: Very pleasant 69-year-old female with history of Buerger's disease. She was seen and examined today around lunch time. She is doing significantly better. She demonstrates much better respiration rate. She was sitting up tolerating a diet. She was at rest satting in the low 90s and while eating or talking she was satting in the mid 80s but relatively comfortable. She now presents for follow-up regarding her gangrenous lower extremities. Physical Exam Vital Signs: Vital Signs: Last Vital Signs Temp 98.1 F 05/17/20 11:21 Pulse 112 H 05/17/20 12:58 Resp 28 H 05/17/20 11:21 BP 120/81 05/17/20 11:21 Pulse Ox 100 05/17/20 11:21 Body Mass Index 24.0 Const: General: cooperative, healthy appearing and no acute distress Orientation/consciousness: oriented to person, oriented to place and oriented to time HENMT: Head: Yes normal to inspection Neck: Carotids: no bruits Chest: Chest palpation & inspection: normal inspection of the chest Resp: Effort & Inspection: normal respiratory effort and able to speak in complete sentences Auscultation: clear to auscultation bilaterally Cardio: Rate: regular rate Heart sounds: S1 normal heart sound present and S2 normal heart sound present GI: Inspection: Yes normal to inspection Skin: General skin exam: no rashes or lesions noted Wounds: wounds noted (Bilateral feet gangrene right greater than left) Neuro: General: oriented to person, oriented to place, oriented to time and CN's II-XI intact bilaterally Extrem: General: Yes normal to inspection, Yes full ROM and Yes no clubbing, cyanosis or edema Psych: Appearance: grossly normal and well kempt Speech and movement: Normal speech and movement present Affect: normal affect Progress Note: A&P Assessment and plan (1) Dry gangrene: Status: Acute (2) Thromboangiitis obliterans (Buerger's disease): Status: Acute Assessment and Plan: In short patient has stable Buerger's disease. She will at some point require bilateral transmetatarsal amputations for her gangrenous toes. There appears to be no signs of overt infection. I would like her respiratory status to stabilize. We can plan to do this as an outpatient. Upon discharge she can follow up with me in approximately 2 weeks time. In terms of wound care would recommend: Adaptic (or other Vaseline gauze) and cover with Kerlix wrap to be changed every other day. Thank you for allowing us to assist in this patient's care. Fall Risk Details Current Medications: Current Medications Generic Name Dose Route Start Last Admin Trade Name Freq PRN Reason Stop Dose Admin Acetaminophen 650 mg 05/13/20 23:02 05/17/20 06:02 Acetaminophen 325 Mg Tablet PO 650 mg Q6H PRN Administration Pain, Mild (Pain Scale 1-3) Albuterol/Ipratropium 3 ml 05/14/20 08:00 05/17/20 12:58 Albuterol/Iprat 2.5/0.5mg 3 Ml Ampul.Neb INHALE 3 ml RQ6H WHILE AWAKE SANTOSH Administration Aspirin 81 mg 05/14/20 09:00 05/17/20 09:21 Aspirin Enteric Coated 81 Mg Tablet. PO 81 mg DAILY SANTOSH Administration Furosemide 20 mg 05/18/20 09:00 Furosemide 20 Mg Tablet PO DAILY SANT[facility]H Protocol Heparin Sodium (Porcine) 5,000 unit 05/13/20 23:15 05/17/20 06:01 Heparin Sodium,Porcine 5,000 Unit/Ml Vial SUBCUT 5,000 unit Q8H [facility] Administration Piperacillin Sod/Tazobactam 50 mls @ 100 mls/hr 05/14/20 04:00 05/17/20 10:13 Sod 3.375 gm/ Sodium Chloride IV Infused Q6H [facility] Infusion Pharmacy Consult 1 each 05/14/20 01:26 Consult Rx Vancomycin Dosing MISCELLANE DAILY PRN Consult order Prednisone 20 mg 05/17/20 09:00 05/17/20 09:21 Prednisone 20 Mg Tablet PO 20 mg DAILY [facility] Administration Sodium Chloride 3 ml 05/14/20 00:00 05/17/20 09:21 0.9 % Sodium Chloride Flush 3 Ml Syringe IVFLUSH 3 ml QSHIFT [facility] Administration Time Spent With Patient Time: Total time spent is greater than 50% in coordination of care (as documented) at patient's floor/unit and/or counseling patient: Time with patient: 15 - 24 minutes
--- NOTE | 2020-05-17 14:44 | HO.PM.IMPN ---
Subjective Subjective Date of Service: 05/17/20 Interval History: no new complaints Cardiovascular Cardiovascular: Reports no additional cardiovascular complaints Respiratory Respiratory: Reports no additional respiratory complaints Physical Exam Vital Signs: Vital Signs: Last Vital Signs Temp 98.1 F 05/17/20 11:21 Pulse 112 H 05/17/20 12:58 Resp 28 H 05/17/20 11:21 BP 120/81 05/17/20 11:21 Pulse Ox 100 05/17/20 11:21 Body Mass Index 24.0 Other: General: AO X 3, no acute distress Resp: CTA bilateral CVS: S1,S2,RRR GI: +BS, NT, no distention Skin:necrotic toes and fingers (see pictures on previous notes) Objective Data Current Medications Generic Name Dose Route Start Last Admin Trade Name Freq PRN Reason Stop Dose Admin Acetaminophen 650 mg 05/13/20 23:02 05/17/20 06:02 Acetaminophen 325 Mg Tablet PO 650 mg Q6H PRN Administration Pain, Mild (Pain Scale 1-3) Albuterol/Ipratropium 3 ml 05/14/20 08:00 05/17/20 12:58 Albuterol/Iprat 2.5/0.5mg 3 Ml Ampul.Neb INHALE 3 ml RQ6H WHILE AWAKE SANTOSH Administration Aspirin 81 mg 05/14/20 09:00 05/17/20 09:21 Aspirin Enteric Coated 81 Mg Tablet.Dr PO 81 mg DAILY SANTOSH Administration Furosemide 20 mg 05/18/20 09:00 Furosemide 20 Mg Tablet PO DAILY SANTOSH Protocol Heparin Sodium (Porcine) 5,000 unit 05/13/20 23:15 05/17/20 06:01 Heparin Sodium,Porcine 5,000 Unit/Ml Vial SUBCUT 5,000 unit Q8H SANTOSH Administration Piperacillin Sod/Tazobactam 50 mls @ 100 mls/hr 05/14/20 04:00 05/17/20 10:13 Sod 3.375 gm/ Sodium Chloride IV Infused Q6H SANTOSH Infusion Pharmacy Consult 1 each 05/14/20 01:26 Consult Rx Vancomycin Dosing MISCELLANE DAILY PRN Consult order Prednisone 20 mg 05/17/20 09:00 05/17/20 09:21 Prednisone 20 Mg Tablet PO 20 mg DAILY SANTOSH Administration Sodium Chloride 3 ml 05/14/20 00:00 05/17/20 09:21 0.9 % Sodium Chloride Flush 3 Ml Syringe IVFLUSH 3 ml QSHIFT SANTOSH Administration Labs CBC & Chem 7: 05/17/20 05:24 05/17/20 05:24 Microbiology Microbiology Results: Microbiology 05/13/20 16:16 Blood - Venous Blood Culture - Preliminary No growth after 48 hours. 05/13/20 16:03 Blood - Venous Blood Culture - Preliminary No growth after 48 hours. 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 Noted to have new onset CHF. New right sided CHF with severe pulmonary htn creatinine started uptrending so lasix was held, now recovered, will restart lasix 20mg po daily tomorrow SHASHANK resolved with stopping lasix Acute hypoxic respiratory failure likely d/t comibnnation of heart failure, Buergers's disease, and possble copd, severe pulmnoanrby htn -Continue O2 (difficulty to get a good o2 sat due to digit ischemia, and foward O2 monitoring not reliable, wean as tolerated, pulm following COPD exacerbation, CT shows no pulmonary embolism prednisone 20 daily continue bronchodilators by neb Gangrene of the toes and fingers vsacular surgery as outpatient continue zosyn for now ID appreciated: change to po Doxycycline 100 mg bid on discharge for total 30 days as well as Augmentin 500 mg daily for 14 days DVT prophylaxis: Subcu heparin Code status: Full code
[2020-05-18] VITALS (9 sets, daily range): BP systolic 96–114; BP diastolic 60–82; PULSE 93–110; RESP 18–20; TEMP 36.1–36.8; O2SAT 90–96; BMI 25.4
[2020-05-18] MEDS: Piperacillin Sodium/Tazobactam 3.375 GM in 0.9 % Sodium Chloride 50 ML IV ×4 (05:14→22:34)
[2020-05-18 06:24] LABS: MANUAL DIFF FLAG NO
[2020-05-18 06:57] LABS: Basophils Percent Auto 0.2 % (0-2); Eosinophils Absolute Auto 0.1 X10*3/uL (0.0-0.4); Eosinophils Percent Auto 0.4 % (0-4); Hematocrit 49.2 % (37-47); Imm Gran Pct Auto 0.9 % (0.0-0.4); Lymphocytes Absolute Auto 1.2 X10*3/uL (1.2-4.9); Lymphocytes Percent Auto 10.1 % (20-40); Mean Corpuscular HGB Conc 30.5 g/dl (31.0-35.0); Mean Corpuscular Hemoglobin 28.6 pg (27.0-33.0); Mean Corpuscular Volume 93.7 fL (80-98); Mean Platelet Volume 10.4 fL (9.4-12.3); Monocytes Absolute Auto 0.8 X10*3/uL (0.1-1.2); Monocytes Percent Auto 6.7 % (2-11); NRBC Pct Auto 0.2 /100WBC (0.0-0.2); Neutrophils Absolute Auto 9.5 X10*3/uL (2.0-8.3); Neutrophils Percent Auto 81.7 % (45-73); Platelet Count 355 X10*3/uL (160-400); Red Blood Count 5.25 X10*6/uL (4.20-5.50); Red Cell Distribution Width 15.7 % (11.0-16.0); White Blood Count 11.7 X10*3/uL (4.8-10.8)
[2020-05-18 07:08] LABS: Anion Gap 18 (12-20); Blood Urea Nitrogen 45 mg/dL (9-16); Calcium 8.5 mg/dL (8.4-10.2); Carbon Dioxide 17 mmol/L (22-29); Chloride 109 mmol/L (96-108); Creatinine Clr Calc Pharmacy 49.5; Estimated Glomerular Filt Rate 54; Glucose Fasting 84 mg/dL (60-99); Potassium 3.9 mmol/L (3.3-5.1); Sodium 140 mmol/L (135-145)
[2020-05-18] MEDS: Albuterol/Iprat 2.5/0.5MG 3 ML AMPUL.NEB INHALE ×3 (07:37→19:49)
[2020-05-18] MEDS: Furosemide 20 MG TABLET PO (09:07)
[2020-05-18] MEDS: 0.9 % Sodium Chloride Flush 3 ML SYRINGE IVFLUSH ×3 (09:07→23:57)
[2020-05-18] MEDS: Heparin Sodium,Porcine 5,000 UNIT/ML VIAL 5000 UNIT SUBCUT ×3 (09:07→22:34)
[2020-05-18] MEDS: predniSONE 20 MG TABLET PO (09:08)
[2020-05-18] MEDS: Aspirin Enteric Coated 81 MG TABLET.DR PO (09:08)
--- NOTE | 2020-05-18 13:30 | MHC.CM.PN ---
Female 69 DX SOB DP home with [facility]. The Pt continues on 13L via [place]. Once demand for High flow supplemental oxygen requirement decreases, the Pt can DC to home. CM will follow. Dr Sun will perform toe amp out patient.
--- NOTE | 2020-05-18 13:34 | HO.PM.IMPN ---
Subjective Subjective Date of Service: 05/18/20 Interval History: sob somewhat improved, still requiritng 12-15L Cardiovascular Cardiovascular: Reports no additional cardiovascular complaints Gastrointestinal Gastrointestinal: Reports no additional gastrointestinal complaints Physical Exam Vital Signs: Vital Signs: Last Vital Signs Temp 97 F 05/18/20 11:57 Pulse 108 H 05/18/20 11:57 Resp 18 05/18/20 11:57 BP 101/67 05/18/20 11:57 Pulse Ox 94 05/18/20 11:57 Body Mass Index 25.4 Other: General: AO X 3, no acute distress Resp: CTA bilateral CVS: S1,S2,RRR GI: +BS, NT, no distention Skin:necrotic toes and fingers (see pictures on previous notes) Objective Data Current Medications Generic Name Dose Route Start Last Admin Trade Name Freq PRN Reason Stop Dose Admin Acetaminophen 650 mg 05/13/20 23:02 05/17/20 06:02 Acetaminophen 325 Mg Tablet PO 650 mg Q6H PRN Administration Pain, Mild (Pain Scale 1-3) Albuterol/Ipratropium 3 ml 05/14/20 08:00 05/18/20 07:37 Albuterol/Iprat 2.5/0.5mg 3 Ml Ampul.Neb INHALE 3 ml RQ6H WHILE AWAKE SANTOSH Administration Aspirin 81 mg 05/14/20 09:00 05/18/20 09:08 Aspirin Enteric Coated 81 Mg Tablet. PO 81 mg DAILY SANTOSH Administration Furosemide 20 mg 05/18/20 09:00 05/18/20 09:07 Furosemide 20 Mg Tablet PO 20 mg DAILY SANTOSH Administration Protocol Heparin Sodium (Porcine) 5,000 unit 05/13/20 23:15 05/18/20 09:07 Heparin Sodium,Porcine 5,000 Unit/Ml Vial SUBCUT 5,000 unit Q8H SANTOSH Administration Piperacillin Sod/Tazobactam 50 mls @ 100 mls/hr 05/14/20 04:00 05/18/20 10:33 Sod 3.375 gm/ Sodium Chloride IV Infused Q6H SANTOSH Infusion Pharmacy Consult 1 each 05/14/20 01:26 Consult Rx Vancomycin Dosing MISCELLANE DAILY PRN Consult order Prednisone 20 mg 05/17/20 09:00 05/18/20 09:08 Prednisone 20 Mg Tablet PO 20 mg DAILY SANTOSH Administration Sodium Chloride 3 ml 05/14/20 00:00 05/18/20 09:07 0.9 % Sodium Chloride Flush 3 Ml Syringe IVFLUSH 3 ml QSHIFT SANTOSH Administration Labs CBC & Chem 7: 05/18/20 05:50 05/18/20 05:50 Microbiology Microbiology Results: Microbiology 05/13/20 16:16 Blood - Venous Blood Culture - Preliminary No growth after 48 hours. 05/13/20 16:03 Blood - Venous Blood Culture - Preliminary No growth after 48 hours. 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 Noted to have new onset CHF. New right sided CHF with severe pulmonary htn creatinine started uptrending so lasix was held, now recovered, restarted lasix 20mg po daily today, monitor labs SHASHANK resolved with stopping lasix monitor now that lasix restarted po Acute hypoxic respiratory failure likely d/t comibnnation of heart failure, Buergers's disease, and possble copd, severe pulmnoanrby htn -Continue O2 (difficulty to get a good o2 sat due to digit ischemia, and forhead O2 monitoring questionably reliable (although consistent with ABG), wean as tolerated, pulm following COPD exacerbation, CT shows no pulmonary embolism prednisone 20 daily continue bronchodilators by neb Gangrene of the toes and fingers vsacular surgery as outpatient continue zosyn for now ID appreciated: change to po Doxycycline 100 mg bid on discharge for total 30 days as well as Augmentin 500 mg daily for 14 days dispo: plan for home once on reasonable amount of o2 DVT prophylaxis: Subcu heparin Code status: Full code
[2020-05-19] VITALS (11 sets, daily range): BP systolic 94–119; BP diastolic 59–78; PULSE 10–106; RESP 18–20; TEMP 36.1–36.9; O2SAT 91–96; BMI 27.5
[2020-05-19] MEDS: Piperacillin Sodium/Tazobactam 3.375 GM in 0.9 % Sodium Chloride 50 ML IV ×4 (04:09→22:13)
--- NOTE | 2020-05-19 05:17 | PC.NURSE ---
CARE ASSUMED 23:15...NAPPING OVERNIGHT..EASILY AROUSED..ALERT...ORIENTED X3..RESPIRATIONS EASY...SAO2 91-92% 13 L/M O2 VIA ZAMORA CANNULA...DRESSINGS TO NECROTIC TOES/FEET DRY/INTACT...WEARS LIGHT MESH GLOVES TO HANDS D/T NECROTIC/REDDENED FINGERS...DENIES SOB BUT DUSKY WHEN FLAT FOR POSITIONING...HEARN LEAKING URINE AROUND CATHETER LARGE AMOUNT URINE...REPOSITIONED CATHETER..TO MONITOR RESPONSE..DENIES DISCOMFORT
[2020-05-19] MEDS: Acetaminophen 325 MG TABLET 650 MG PO (05:48)
[2020-05-19 06:09] LABS: MANUAL DIFF FLAG NO
[2020-05-19 06:36] LABS: Anion Gap 18 (12-20); Blood Urea Nitrogen 41 mg/dL (9-16); Calcium 8.4 mg/dL (8.4-10.2); Carbon Dioxide 18 mmol/L (22-29); Chloride 108 mmol/L (96-108); Creatinine Clr Calc Pharmacy 50.3; Estimated Glomerular Filt Rate 53; Glucose Fasting 92 mg/dL (60-99); Potassium 4.1 mmol/L (3.3-5.1); Sodium 140 mmol/L (135-145)
[2020-05-19 06:41] LABS: Basophils Percent Auto 0.1 % (0-2); Eosinophils Absolute Auto 0.1 X10*3/uL (0.0-0.4); Eosinophils Percent Auto 0.9 % (0-4); Hematocrit 49.8 % (37-47); Hemoglobin 15.2 g/dl (12.0-16.0); Imm Gran Abs Auto 0.17 X10*3/uL (0.00-0.03); Imm Gran Pct Auto 1.2 % (0.0-0.4); Lymphocytes Absolute Auto 1.6 X10*3/uL (1.2-4.9); Lymphocytes Percent Auto 11.4 % (20-40); Mean Corpuscular HGB Conc 30.5 g/dl (31.0-35.0); Mean Corpuscular Hemoglobin 29.1 pg (27.0-33.0); Mean Corpuscular Volume 95.2 fL (80-98); Mean Platelet Volume 10.4 fL (9.4-12.3); Monocytes Absolute Auto 0.8 X10*3/uL (0.1-1.2); Neutrophils Absolute Auto 11.1 X10*3/uL (2.0-8.3); Neutrophils Percent Auto 80.4 % (45-73); Platelet Count 345 X10*3/uL (160-400); Red Blood Count 5.23 X10*6/uL (4.20-5.50); Red Cell Distribution Width 15.7 % (11.0-16.0); White Blood Count 13.8 X10*3/uL (4.8-10.8)
[2020-05-19] MEDS: Heparin Sodium,Porcine 5,000 UNIT/ML VIAL 5000 UNIT SUBCUT ×3 (07:41→22:14)
[2020-05-19] MEDS: Furosemide 20 MG TABLET PO (07:41)
[2020-05-19] MEDS: Aspirin Enteric Coated 81 MG TABLET.DR PO (07:41)
[2020-05-19] MEDS: predniSONE 20 MG TABLET PO (07:42)
[2020-05-19] MEDS: 0.9 % Sodium Chloride Flush 3 ML SYRINGE IVFLUSH ×3 (07:42→23:10)
[2020-05-19] MEDS: Albuterol/Iprat 2.5/0.5MG 3 ML AMPUL.NEB INHALE ×3 (08:04→20:41)
--- NOTE | 2020-05-19 10:46 | PM.PNCARD ---
Subjective Subjective Date of Service: 05/19/20 Principal diagnosis: Congestive heart failure predominantly right-sided Interval history: Patient states that she feels okay. Shortness of breath is at baseline. Review of Systems Review of Systems Yes all other systems are reviewed and are negative Cardiovascular: Reports as per HPI, Reports no additional cardiovascular complaints, Denies acrocyanosis, Denies cool extremities, Denies painful fingertips, Denies chest pain, Denies chest pain at rest, Denies diaphoresis, Denies syncope, Denies irregular heart rhythm, Denies claudication, Denies leg edema, Denies lightheadedness, Denies palpitations and Denies dyspnea Respiratory: Denies dyspnea Denies syncope Endocrine: Denies palpitations Physical Exam Vital Signs: Last Vital Signs Temp 97.2 F 05/19/20 07:30 Pulse 104 H 05/19/20 08:04 Resp 18 05/19/20 07:30 BP 111/77 05/19/20 07:30 Pulse Ox 94 05/19/20 10:24 Body Mass Index 27.5 Const General: cooperative, comfortable and no acute distress Orientation/consciousness: patient oriented x3 HENMT Other: Unremarkable Neck Neck: Yes normal visual inspection Chest Chest palpation & inspection: normal inspection of the chest Resp Auscultation: clear to auscultation bilaterally, no crackles and no wheezes Cardio Jugular venous distension: no JVD Palpation: normal PMI Heart sounds: S1 normal heart sound present, S2 normal heart sound present, no gallops, Murmur heart sound present systolic holo and no rubs GI Palpation (GI): Soft to palpation Back/Spine/Pelvis Other: unremarkable Skin General skin exam: no rashes or lesions noted Neuro General: patient oriented x3 Extrem General: Yes no clubbing, cyanosis or edema Psych Mental Status: mental status grossly normal Results Labs and Meds Result diagrams: 05/19/20 05:42 05/19/20 05:42 Lab results: Laboratory Results - last 24 hr 05/19/20 05/19/20 05:42 05:42 WBC 13.8 H RBC 5.23 Hgb 15.2 Hct 49.8 H MCV 95.2 MCH 29.1 MCHC 30.5 L RDW 15.7 Plt Count 345 MPV 10.4 Immature Gran % (Auto) 1.2 H Neut % (Auto) 80.4 H Lymph % (Auto) 11.4 L Hardeman % (Auto) 6.0 Eos % (Auto) 0.9 Baso % (Auto) 0.1 Lymph # (Auto) 1.6 Hardeman # (Auto) 0.8 Eos # (Auto) 0.1 Baso # (Auto) 0.0 Abs Immat Gran (auto) 0.17 H Absolute Neuts (auto) 11.1 H Absolute Nucleated RBC 0.000 Nucleated RBC % (auto) 0.0 Sodium 140 Potassium 4.1 Chloride 108 Carbon Dioxide 18 L Anion Gap 18 BUN 41 H Creatinine 1.03 Estim Creat Clear Calc 50.3 Estimated GFR 53 Fasting Glucose 92 Calcium 8.4 Imaging Radiologist's impression: Impressions Chest X-Ray 05/19/20 09:15 IMPRESSION: Small bilateral pleural effusions right greater than left with bibasilar atelectasis. No major change from 05/14/2020. Progress Note: A&P Assessment and plan (1) Acute on chronic right heart failure: Status: Acute (2) Nonrheumatic tricuspid valve regurgitation: Status: Acute Assessment and Plan: Clinically, she seems to be euvolemic. May continue oral Lasix from that end. Renal function seems to be stable. Otherwise, with regard to oxygenation, I am not entirely clear if we are getting a good O2 sats based on vascular disease. Will need to address this, as she may be getting too much of supplemental oxygen due to falsely low readings. Discussed with Dr. Ernandez. Fall Risk Details Current Medications: Current Medications Generic Name Dose Route Start Last Admin Trade Name Freq PRN Reason Stop Dose Admin Acetaminophen 650 mg 05/13/20 23:02 05/19/20 05:48 Acetaminophen 325 Mg Tablet PO 650 mg Q6H PRN Administration Pain, Mild (Pain Scale 1-3) Albuterol/Ipratropium 3 ml 05/14/20 08:00 05/19/20 08:04 Albuterol/Iprat 2.5/0.5mg 3 Ml Ampul.Neb INHALE 3 ml RQ6H WHILE AWAKE SANTOSH Administration Aspirin 81 mg 05/14/20 09:00 05/19/20 07:41 Aspirin Enteric Coated 81 Mg Tablet. PO 81 mg DAILY SANTOSH Administration Furosemide 20 mg 05/18/20 09:00 05/19/20 07:41 Furosemide 20 Mg Tablet PO 20 mg DAILY SANTOSH Administration Protocol Heparin Sodium (Porcine) 5,000 unit 05/13/20 23:15 05/19/20 07:41 Heparin Sodium,Porcine 5,000 Unit/Ml Vial SUBCUT 5,000 unit Q8H SANTOSH Administration Piperacillin Sod/Tazobactam 50 mls @ 100 mls/hr 05/14/20 04:00 05/19/20 10:32 Sod 3.375 gm/ Sodium Chloride IV Infused Q6H SANTOSH Infusion Pharmacy Consult 1 each 05/14/20 01:26 Consult Rx Vancomycin Dosing MISCELLANE DAILY PRN Consult order Prednisone 20 mg 05/17/20 09:00 05/19/20 07:42 Prednisone 20 Mg Tablet PO 20 mg DAILY SANTOSH Administration Sodium Chloride 3 ml 05/14/20 00:00 05/19/20 07:42 0.9 % Sodium Chloride Flush 3 Ml Syringe IVFLUSH 3 ml QSHIFT SANTOSH Administration Time Spent With Patient Time: Total time spent is greater than 50% in coordination of care (as documented) at patient's floor/unit and/or counseling patient: Time with patient: less than 15 minutes
--- NOTE | 2020-05-19 13:13 | HO.PM.IMPN ---
Subjective Subjective Date of Service: 05/19/20 Interval History: seen and examined feels about the same as yesterday, no real change breathing comfortable at rest ROS General - no fevers or chills Cardiovascular - no chest pain Respiratory - comfortable at rest Abdominal- no abdominal pain, nausea, vomiting, diarrhea Physical Exam Vital Signs: Vital Signs: Last Vital Signs Temp 97 F 05/19/20 11:24 Pulse 100 05/19/20 11:24 Resp 18 05/19/20 11:24 BP 103/71 05/19/20 11:24 Pulse Ox 93 05/19/20 11:24 Body Mass Index 27.5 Const: Other: General - no acute distress, appears comfortable Cardiovascular - regular rate and rhythm, S1-S2 Lungs - dim on, 3L oxymyzer Abdomen - soft, nontender, no rebound or guarding Extremities - no edema bilaterally Neuro - awake and alert, no focal deficits Skin - dressing in places Objective Data Current Medications Generic Name Dose Route Start Last Admin Trade Name Freq PRN Reason Stop Dose Admin Acetaminophen 650 mg 05/13/20 23:02 05/19/20 05:48 Acetaminophen 325 Mg Tablet PO 650 mg Q6H PRN Administration Pain, Mild (Pain Scale 1-3) Albuterol/Ipratropium 3 ml 05/14/20 08:00 05/19/20 08:04 Albuterol/Iprat 2.5/0.5mg 3 Ml Ampul.Neb INHALE 3 ml RQ6H WHILE AWAKE SANTOSH Administration Aspirin 81 mg 05/14/20 09:00 05/19/20 07:41 Aspirin Enteric Coated 81 Mg Tablet. PO 81 mg DAILY SANTOSH Administration Furosemide 20 mg 05/18/20 09:00 05/19/20 07:41 Furosemide 20 Mg Tablet PO 20 mg DAILY SANTOSH Administration Protocol Heparin Sodium (Porcine) 5,000 unit 05/13/20 23:15 05/19/20 07:41 Heparin Sodium,Porcine 5,000 Unit/Ml Vial SUBCUT 5,000 unit Q8H SANTOSH Administration Piperacillin Sod/Tazobactam 50 mls @ 100 mls/hr 05/14/20 04:00 05/19/20 10:32 Sod 3.375 gm/ Sodium Chloride IV Infused Q6H SANTOSH Infusion Pharmacy Consult 1 each 05/14/20 01:26 Consult Rx Vancomycin Dosing MISCELLANE DAILY PRN Consult order Prednisone 20 mg 05/17/20 09:00 05/19/20 07:42 Prednisone 20 Mg Tablet PO 20 mg DAILY SANTOSH Administration Sodium Chloride 3 ml 05/14/20 00:00 05/19/20 07:42 0.9 % Sodium Chloride Flush 3 Ml Syringe IVFLUSH 3 ml QSHIFT SANTOSH Administration Labs CBC & Chem 7: 05/19/20 05:42 05/19/20 05:42 Microbiology Microbiology Results: Microbiology 05/13/20 16:16 Blood - Venous Blood Culture - Final No growth after 5 days. 05/13/20 16:03 Blood - Venous Blood Culture - Final No growth after 5 days. 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 Noted to have new onset CHF. 1. Acute hypoxic resp failure multifactorial including CHF, Beurger's, COPD (undiagnosed ??), pulmonary HTN continue O2 -- wean as tolerated once down to 4-6L by [place], will check for Home o2 evaluation 2. New right sided CHF with severe pulmonary htn Lasix PO, monitor renal function 3. SHASHANK from overdiuresis monitor renal fuctin while PO lasix restarted 4. COPD exacerbation DuoNebs s/p IV steroids, now on prednisone 20mg daily, taper to 10mg starting tomorrow for a few more days 5. Gangrene of the toes and fingers vsacular surgery as outpatient continue zosyn for now, ID appreciated: change to po Doxycycline 100 mg bid on discharge for total 30 days as well as Augmentin 500 mg daily for 14 days DVT ppx, subcut. heparin Full Code dispo: home once down to 2-4L by [place]
--- NOTE | 2020-05-19 14:52 | PC.NURSE ---
Pt buttocks noted to have redness, blanchable. Pt encouraged to lay on side or sit up in chair. Pt refused both activities. Pt incontinent.
--- NOTE | 2020-05-19 18:03 | PC.NURSE ---
Continuous pulse oximetry has been attempted most of day. Pt has probe on ear but reading is not always available. Another probe on patients forhead which is connected to portable vitals machine. Readings off forehead have ranged from 68-97% while oxygen was at 7-9L via Daniel cannula. Clinically patient denies increased SOB, no dizziness, alert and oriented, skin color WNL, HR stable 100-110s. Dr. Ernandez updated. Per MD if unable to obtain continuous O2, okay to intermittently check O2. Last O2 obtained was 96% on 9L. Will continue to monitor.
--- NOTE | 2020-05-19 18:41 | PC.NURSE ---
Pt almost 6hours post alba removal. Pt has no urinated. Bladder scanned for 367ml. Dr. Ernandez made aware. Stated to monitor until [id number], if not voided, place alba. Oncoming nurse made aware.
[2020-05-20] VITALS (9 sets, daily range): BP systolic 99–117; BP diastolic 62–77; PULSE 95–110; RESP 19–20; TEMP 35.6–36.4; O2SAT 89–94; BMI 23.9
--- NOTE | 2020-05-20 03:26 | PC.NURSE ---
05/19/202114; Patient has not voided, bladder scanned patient for 470 mls. Patient attempted bedpan, unable to void. Dr. Chopra notified via [employer]. Order for alba catheter, alba inserted by nurse without difficulty, patient tolerated well, no complaints of pain or discomfort. Alba catheter patent, draining dark yellow urine.
[2020-05-20] MEDS: Piperacillin Sodium/Tazobactam 3.375 GM in 0.9 % Sodium Chloride 50 ML IV ×2 (04:50→09:46)
[2020-05-20] MEDS: Albuterol/Iprat 2.5/0.5MG 3 ML AMPUL.NEB INHALE ×3 (07:55→20:52)
[2020-05-20] MEDS: predniSONE 20 MG TABLET PO (09:10)
[2020-05-20] MEDS: Aspirin Enteric Coated 81 MG TABLET.DR PO (09:10)
[2020-05-20] MEDS: Furosemide 20 MG TABLET PO (09:10)
[2020-05-20] MEDS: 0.9 % Sodium Chloride Flush 3 ML SYRINGE IVFLUSH ×3 (09:11→23:52)
[2020-05-20] MEDS: Heparin Sodium,Porcine 5,000 UNIT/ML VIAL 5000 UNIT SUBCUT ×3 (09:11→23:51)
--- NOTE | 2020-05-20 12:07 | P.CDIC_ITS ---
CDI Concurrent Query Service Date: 05/20/20 Documentation Clarification: Please clarify if you are treating a proba ble/suspected/likely or confirmed: Specifics: Acute diastolic and/or systolic CHF Acute on chronic diastolic and/or systolic CHF Right heart failure due to left sided failure (CHF, systolic/diastolic) Please specify if known Provider Response: Other Other Diagnosis: See progress note PLEASE DO NOT DELETE/MODIFY EXISTING CONTENT Additional information is needed in order to code to the highest accuracy and appropriate Severity of Illness (SOI). Please clarify the information noted bel ow in your progress notes and discharge summary. Risk Factors/Clinical Indicators/Treatments PN:Cardiology - 05/14 - bilateral pleural effusions greater on the right side most likely 2nd to CHF. I would focus treatment more on the congestive heart failure. H&P: 05/13 - New onset CHF, echo, cardiology consult requested. BNP 1310 H New right sided CHF with severe pulmonary HTN. Lasix CDS: Darlene Flanagan CCS, CDIS Contact Number: [phone] Please Review the information above and exercise your independent professional judgment in responding to the query. If you concur, pleas document in the PROGRESS NOTES and DISCHARGE SUMMARY. If you do not agree with the query, please document in the query above. THIS QUERY IS PART OF THE PERMANENT MEDICAL RECORD
[2020-05-20] MEDS: Furosemide 40 MG/4 ML VIAL IVPUSH (12:39)
--- NOTE | 2020-05-20 13:29 | MHC.CM.PN ---
Female 69 DX SOB DP is home with [facility]. She will need to schedule a post hospital visit prior to discharge. The [facility] can go in directly. If not scheduled the PCP will order Home care services. The Patient was informed. She understood and agrees to schedule appt prior to her discharge. CM will follow. LOS is r/t need for supplemental oxygen @ high dose.
[2020-05-20] MEDS: Acetaminophen 325 MG TABLET 650 MG PO (13:51)
--- NOTE | 2020-05-20 14:52 | HO.PM.IMPN ---
Subjective Subjective Date of Service: 05/20/20 Interval History: Patient complaining of mild tingling of toes and fingers otherwise denies shortness of breath, no PND, no orthopnea, able to lie flat, oxygen requirement remains high currently on 9 L of oxygen. ROS General no headache, no dizziness, no fever or chills. CVS no chest pain, no palpitation. Respiratory no cough, no sob. Gastrointestinal no nausea, no vomiting, no abdominal pain Physical Exam Vital Signs: Vital Signs: Last Vital Signs Temp 96.3 F L 05/20/20 11:33 Pulse 102 H 05/20/20 14:48 Resp 20 05/20/20 11:33 BP 107/77 05/20/20 11:33 Pulse Ox 92 05/20/20 11:33 Body Mass Index 23.9 General patient resting comfortably,no acute distress. Neck is supple no JVD. CVS regular rate rhythm, Respiratory lungs clear to auscultation,diminished, no respiratory distress, no wheeze, no rhonchi. Gastrointestinal abdomen soft, nontender, bowel sounds audible, no guarding , no rigidity. Extremities pitting edema.dressing to toes/fingers in place Neuro nonfocal , speech clear. Skin no rash Objective Data Current Medications Generic Name Dose Route Start Last Admin Trade Name Freq PRN Reason Stop Dose Admin Acetaminophen 650 mg 05/13/20 23:02 05/20/20 13:51 Acetaminophen 325 Mg Tablet PO 650 mg Q6H PRN Administration Pain, Mild (Pain Scale 1-3) Albuterol/Ipratropium 3 ml 05/14/20 08:00 05/20/20 14:48 Albuterol/Iprat 2.5/0.5mg 3 Ml Ampul.Neb INHALE 3 ml RQ6H WHILE AWAKE SANTOSH Administration Aspirin 81 mg 05/14/20 09:00 05/20/20 09:10 Aspirin Enteric Coated 81 Mg Tablet. PO 81 mg DAILY SANTOSH Administration Furosemide 20 mg 05/18/20 09:00 05/20/20 09:10 Furosemide 20 Mg Tablet PO 20 mg DAILY SANTOSH Administration Protocol Heparin Sodium (Porcine) 5,000 unit 05/13/20 23:15 05/20/20 09:11 Heparin Sodium,Porcine 5,000 Unit/Ml Vial SUBCUT 5,000 unit Q8H SANTOSH Administration Piperacillin Sod/Tazobactam 50 mls @ 100 mls/hr 05/14/20 04:00 05/20/20 10:33 Sod 3.375 gm/ Sodium Chloride IV Infused Q6H [facility] Infusion Pharmacy Consult 1 each 05/14/20 01:26 Consult Rx Vancomycin Dosing MISCELLANE DAILY PRN Consult order Prednisone 20 mg 05/17/20 09:00 05/20/20 09:10 Prednisone 20 Mg Tablet PO 20 mg DAILY SANTOSH Administration Sodium Chloride 3 ml 05/14/20 00:00 05/20/20 09:11 0.9 % Sodium Chloride Flush 3 Ml Syringe IVFLUSH 3 ml QSHIFT SANTOSH Administration Labs CBC & Chem 7: 05/19/20 05:42 05/19/20 05:42 Microbiology Microbiology Results: Microbiology 05/13/20 16:16 Blood - Venous Blood Culture - Final No growth after 5 days. 05/13/20 16:03 Blood - Venous Blood Culture - Final No growth after 5 days. Assessment and Plan (1) Acute respiratory failure with hypoxia: Status: Acute (2) Thromboangiitis obliterans (Buerger's disease): Status: Acute (3) Nonrheumatic tricuspid valve regurgitation: Status: Acute (4) Osteomyelitis: Problem details: She has chronic osteomyelitis feet She has dry gangrene,not curable likely with IV antibiotics Status: Acute (5) Congestive heart failure: Status: Acute (6) Peripheral vascular disease: Status: Acute (7) Dry gangrene: Status: Acute (8) Elevated lactic acid level: Status: Acute (9) Acute on chronic right heart failure: Status: Acute Assessment and Plan: 69-year-old female with a 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 Noted to have new onset CHF. 1. Acute hypoxic resp failure multifactorial including CHF, Beurger's, COPD (undiagnosed ??), pulmonary HTN Persistent hypoxia, patient asymptomatic continue O2 currently on 9 L of oxygen, ABGs on 05/16 consistent with hypoxia, no evidence of CO2 retention. Seen by Dr. Cramer, he recommend to treat with diuretics, steroids and to repeat a chest x-ray repeat chest x-ray showing small bilateral effusion right greater than the left with bibasilar atelectasis Will treat patient with 1 dose of Lasix follow output, patient on IV Zosyn q.6 hours, Dr. Lai recommend to switch to by mouth doxy and Augmentin for total 10 day treatment Will request pulmonology to re-evaluate patient Encourage incentive spirometry ,out of bed to chair once down to 4-6L by [place], will check for Home o2 evaluation 2. New right sided CHF with severe pulmonary htn no evidence of systolic congestive heart failure. No evidence of acute on chronic systolic or diastolic congestive heart failure. Noted to have positive fluid balance, with significantly elevated BNP therefore will give 1 dose of IV Lasix and follow urine output,repeat BNP At home on by mouth Lasix 20mg daily, follow renal function closely 3. SHASHANK resolved likely was from overdiuresis, monitor renal fuction closely 4. COPD exacerbation DuoNebs q.i.d. s/p IV steroids, now on prednisone 20mg daily, taper to 10mg starting today for a few more days 5. Dry Gangrene of the toes and fingers vsacular surgery as outpatient continue zosyn for now, and change to po Doxycycline 100 mg bid and Augmentin will discuss duration with ID DVT ppx, subcut. heparin Full Code
--- NOTE | 2020-05-20 15:39 | PM.IDPN ---
Subjective Subjective Date of Service: 05/20/20 Interval History: she is still on oxygen she has no complaints she is day 7 Zosyn for aspiration pneumonia concern Objective Data Labs CBC & Chem 7: 05/21/20 06:14 05/24/20 05:36 Microbiology Microbiology Results: Microbiology 05/13/20 16:16 Blood - Venous Blood Culture - Final No growth after 5 days. 05/13/20 16:03 Blood - Venous Blood Culture - Final No growth after 5 days. Physical Exam Vital Signs: Vital Signs: Last Vital Signs Temp 96.3 F L 05/20/20 11:33 Pulse 102 H 05/20/20 14:48 Resp 20 05/20/20 11:33 BP 107/77 05/20/20 11:33 Pulse Ox 92 05/20/20 11:33 Body Mass Index 23.9 Const: General: cooperative Resp: Effort & Inspection: normal respiratory effort Cardio: Rate: regular rate Rhythm: regular rhythm GI: Palpation (GI): Soft to palpation and nontender Extrem: General: Yes normal to inspection Assessment and Plan Assessment and plan (1) Acute respiratory failure with hypoxia: Status: Acute Assessment and Plan: Would stop IV Zosyn, had 7 days Po Doxycycline and Augmentin for a week (2) Osteomyelitis: Status: Acute Time Spent With Patient Time: Total time spent is greater than 50% in coordination of care (as documented) at patient's floor/unit and/or counseling patient: Time with patient: 15 - 24 minutes
[2020-05-20] MEDS: Amoxicillin/Potassium Clav 875 MG TABLET PO (20:36)
[2020-05-21] VITALS (7 sets, daily range): BP systolic 100–125; BP diastolic 63–84; PULSE 98–111; RESP 18–110; TEMP 36.3–36.8; O2SAT 92–95; BMI 24.2
[2020-05-21 06:29] LABS: MANUAL DIFF FLAG NO
[2020-05-21 06:54] LABS: Basophils Percent Auto 0.2 % (0-2); Eosinophils Absolute Auto 0.2 X10*3/uL (0.0-0.4); Eosinophils Percent Auto 1.2 % (0-4); Imm Gran Abs Auto 0.19 X10*3/uL (0.00-0.03); Imm Gran Pct Auto 1.3 % (0.0-0.4); Lymphocytes Absolute Auto 1.4 X10*3/uL (1.2-4.9); Lymphocytes Percent Auto 9.9 % (20-40); Mean Corpuscular HGB Conc 30.6 g/dl (31.0-35.0); Mean Corpuscular Hemoglobin 28.5 pg (27.0-33.0); Monocytes Absolute Auto 1.2 X10*3/uL (0.1-1.2); Monocytes Percent Auto 8.3 % (2-11); Neutrophils Absolute Auto 11.2 X10*3/uL (2.0-8.3); Neutrophils Percent Auto 79.1 % (45-73); Platelet Count 326 X10*3/uL (160-400); Red Blood Count 5.27 X10*6/uL (4.20-5.50); Red Cell Distribution Width 15.8 % (11.0-16.0); White Blood Count 14.1 X10*3/uL (4.8-10.8)
[2020-05-21 06:55] LABS: Anion Gap 16 (12-20); Blood Urea Nitrogen 38 mg/dL (9-16); Calcium 8.7 mg/dL (8.4-10.2); Carbon Dioxide 21 mmol/L (22-29); Chloride 106 mmol/L (96-108); Estimated Glomerular Filt Rate 53; Glucose Random 102 mg/dL (60-115); Potassium 4.4 mmol/L (3.3-5.1); Sodium 139 mmol/L (135-145)
[2020-05-21 07:21] LABS: B Type Natriuretic Peptide 2209 pg/mL (<100)
[2020-05-21] MEDS: Albuterol/Iprat 2.5/0.5MG 3 ML AMPUL.NEB INHALE (07:36)
[2020-05-21] MEDS: Aspirin Enteric Coated 81 MG TABLET.DR PO (09:13)
[2020-05-21] MEDS: predniSONE 20 MG TABLET PO (09:13)
[2020-05-21] MEDS: Furosemide 20 MG TABLET PO (09:14)
[2020-05-21] MEDS: Amoxicillin/Potassium Clav 875 MG TABLET PO ×2 (09:14→20:24)
[2020-05-21] MEDS: 0.9 % Sodium Chloride Flush 3 ML SYRINGE IVFLUSH ×3 (09:16→23:42)
[2020-05-21] MEDS: Acetaminophen 325 MG TABLET 650 MG PO (09:17)
[2020-05-21] MEDS: Heparin Sodium,Porcine 5,000 UNIT/ML VIAL 5000 UNIT SUBCUT ×3 (09:17→23:12)
--- NOTE | 2020-05-21 11:28 | P.PNCA_ITS ---
Subjective Subjective Date of Service: 05/21/20 Principal diagnosis: Congestive heart failure predominantly right-sided Interval history: She states that she is feeling okay. Still requiring a lot of supplemental oxygen. Review of Systems Review of Systems Yes all other systems are reviewed and are negative Cardiovascular: Reports as per HPI, Reports no additional cardiovascular complaints, Denies acrocyanosis, Denies cool extremities, Denies painful fingertips, Denies chest pain, Denies chest pain at rest, Denies diaphoresis, Denies syncope, Denies irregular heart rhythm, Denies claudication, Denies leg edema, Denies lightheadedness, Denies palpitations and Denies dyspnea Respiratory: Denies dyspnea Denies syncope Endocrine: Denies palpitations Physical Exam Vital Signs: Last Vital Signs Temp 97.4 F 05/21/20 08:00 Pulse 101 H 05/21/20 08:00 Resp 25 H 05/21/20 08:00 BP 124/84 05/21/20 08:00 Pulse Ox 92 05/21/20 04:00 Body Mass Index 24.2 Const General: cooperative, comfortable and no acute distress Orientation/consciousness: patient oriented x3 HENMT Other: Unremarkable Neck Neck: Yes normal visual inspection Chest Chest palpation & inspection: normal inspection of the chest Resp Auscultation: clear to auscultation bilaterally, crackles and no wheezes Cardio Jugular venous distension: no JVD Palpation: normal PMI Heart sounds: S1 normal heart sound present, S2 normal heart sound present, no gallops, Murmur heart sound present systolic holo and no rubs GI Palpation (GI): Soft to palpation Back/Spine/Pelvis Other: unremarkable Skin General skin exam: no rashes or lesions noted Neuro General: patient oriented x3 Extrem General: Yes edema (1+) Psych Mental Status: mental status grossly normal Results Labs and Meds Result diagrams: 05/21/20 06:14 05/21/20 06:14 Lab results: Laboratory Results - last 24 hr 05/21/20 05/21/20 05/21/20 06:14 06:14 06:14 WBC 14.1 H RBC 5.27 Hgb 15.0 Hct 49.0 H MCV 93.0 MCH 28.5 MCHC 30.6 L RDW 15.8 Plt Count 326 MPV 11.0 Immature Gran % (Auto) 1.3 H Neut % (Auto) 79.1 H Lymph % (Auto) 9.9 L Otero % (Auto) 8.3 Eos % (Auto) 1.2 Baso % (Auto) 0.2 Lymph # (Auto) 1.4 Otero # (Auto) 1.2 Eos # (Auto) 0.2 Baso # (Auto) 0.0 Abs Immat Gran (auto) 0.19 H Absolute Neuts (auto) 11.2 H Absolute Nucleated RBC 0.000 Nucleated RBC % (auto) 0.0 Sodium 139 Potassium 4.4 Chloride 106 Carbon Dioxide 21 L Anion Gap 16 BUN 38 H Creatinine 1.04 Estim Creat Clear Calc 44.0 Estimated GFR 53 Random Glucose 102 Calcium 8.7 B-Natriuretic Peptide 2209 H Progress Note: A&P Assessment and plan (1) Acute on chronic right heart failure: Status: Acute (2) Acute cor pulmonale: Status: Acute (3) Nonrheumatic tricuspid valve regurgitation: Status: Acute Assessment and Plan: Clinically, she is requiring a lot of supplemental oxygen. She seems to have mild volume overload at this time. I am not sure if the input/output calculation is accurate. We can put her back on IV Lasix. Ask Pulmonary to see as well. Fall Risk Details Current Medications: Current Medications Generic Name Dose Route Start Last Admin Trade Name Freq PRN Reason Stop Dose Admin Acetaminophen 650 mg 05/13/20 23:02 05/21/20 09:17 Acetaminophen 325 Mg Tablet PO 650 mg Q6H PRN Administration Pain, Mild (Pain Scale 1-3) Amoxicillin/Clavulanate Potassium 875 mg 05/20/20 21:00 05/21/20 09:14 Amoxicillin/Potassium Clav 875 Mg Tablet PO 875 mg Q12H SANTOSH Administration Aspirin 81 mg 05/14/20 09:00 05/21/20 09:13 Aspirin Enteric Coated 81 Mg Tablet.Dr PO 81 mg DAILY SANTOSH Administration Doxycycline Hyclate 100 mg 05/20/20 21:00 05/21/20 09:14 Doxycycline Hyclate 100 Mg Tablet PO 100 mg Q12H SANTOSH Administration Furosemide 40 mg 05/21/20 11:15 Furosemide 40 Mg/4 Ml Vial IVPUSH BID@0900,1800 [facility] Protocol Heparin Sodium (Porcine) 5,000 unit 05/13/20 23:15 05/21/20 09:17 Heparin Sodium,Porcine 5,000 Unit/Ml Vial SUBCUT 5,000 unit Q8H SANTOSH Administration Prednisone 20 mg 05/17/20 09:00 05/21/20 09:13 Prednisone 20 Mg Tablet PO 20 mg DAILY SANTOSH Administration Sodium Chloride 3 ml 05/14/20 00:00 05/21/20 09:16 0.9 % Sodium Chloride Flush 3 Ml Syringe IVFLUSH 3 ml QSHIFT SANTOSH Administration Time Spent With Patient Time: Total time spent is greater than 50% in coordination of care (as documented) at patient's floor/unit and/or counseling patient: Time with patient: less than 15 minutes
--- NOTE | 2020-05-21 12:50 | P.PNIM_ITS ---
Subjective Subjective Date of Service: 05/21/20 Interval History: the patient was seen and evaluated this morning Laying in bed, feels comfortable overall but still requiring 9 L of oxygen Denies any fever, chills or shortness of breath No reported other overnight events. Systemic review: No fever, chills or weakness No chest pain, palpitation Dyspnea with minimal exertion, feels comfortable was sitting down No abdominal pain, nausea or vomiting No urinary symptoms No any rash or wounds Physical Exam Vital Signs: Vital Signs: Last Vital Signs Temp 98 F 05/21/20 11:32 Pulse 98 05/21/20 11:32 Resp 26 H 05/21/20 11:32 BP 125/75 05/21/20 11:32 Pulse Ox 92 05/21/20 04:00 Body Mass Index 24.2 Const: Other: Constitutional : Alert, oriented, not in distress Neck : Normal inspection, Supple Cardiovascular : RRR, S1 S2, no lower extremity edema Respiratory : Fair bilateral air entry, no crackles, no wheezes or rhonchi Gastrointestinal: soft, lax, Normal bowel sounds, Non tender Skin : Warm/Dry, No rash Neurological : Alert & oriented x3, No focal deficit Objective Data Current Medications Generic Name Dose Route Start Last Admin Trade Name Freq PRN Reason Stop Dose Admin Acetaminophen 650 mg 05/13/20 23:02 05/21/20 09:17 Acetaminophen 325 Mg Tablet PO 650 mg Q6H PRN Administration Pain, Mild (Pain Scale 1-3) Amoxicillin/Clavulanate Potassium 875 mg 05/20/20 21:00 05/21/20 09:14 Amoxicillin/Potassium Clav 875 Mg Tablet PO 875 mg Q12H SANTOSH Administration Aspirin 81 mg 05/14/20 09:00 05/21/20 09:13 Aspirin Enteric Coated 81 Mg Tablet.Dr PO 81 mg DAILY SANTOSH Administration Doxycycline Hyclate 100 mg 05/20/20 21:00 05/21/20 09:14 Doxycycline Hyclate 100 Mg Tablet PO 100 mg Q12H SANTOSH Administration Furosemide 40 mg 05/21/20 11:15 Furosemide 40 Mg/4 Ml Vial IVPUSH BID@0900,1800 SANTOSH Protocol Heparin Sodium (Porcine) 5,000 unit 05/13/20 23:15 05/21/20 09:17 Heparin Sodium,Porcine 5,000 Unit/Ml Vial SUBCUT 5,000 unit Q8H SANTOSH Administration Prednisone 20 mg 05/17/20 09:00 05/21/20 09:13 Prednisone 20 Mg Tablet PO 20 mg DAILY SANTOSH Administration Sodium Chloride 3 ml 05/14/20 00:00 05/21/20 09:16 0.9 % Sodium Chloride Flush 3 Ml Syringe IVFLUSH 3 ml QSHIFT SANTOSH Administration Labs CBC & Chem 7: 05/21/20 06:14 05/21/20 06:14 Microbiology Microbiology Results: Microbiology 05/13/20 16:16 Blood - Venous Blood Culture - Final No growth after 5 days. 05/13/20 16:03 Blood - Venous Blood Culture - Final No growth after 5 days. Assessment and Plan (1) Acute respiratory failure with hypoxia: Status: Acute (2) Thromboangiitis obliterans (Buerger's disease): Status: Acute (3) Nonrheumatic tricuspid valve regurgitation: Status: Acute (4) Osteomyelitis: Problem details: She has chronic osteomyelitis feet She has dry gangrene,not curable likely with IV antibiotics Surgical treatment if not improving Status: Acute (5) Congestive heart failure: Status: Acute (6) Peripheral vascular disease: Status: Acute (7) Dry gangrene: Status: Acute (8) Elevated lactic acid level: Status: Acute (9) Acute on chronic right heart failure: Status: Acute Assessment and Plan: 69-year-old female with a 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 Noted to have new onset CHF. 1. Acute hypoxic resp failure multifactorial including CHF, Beurger's, COPD (undiagnosed ??), pulmonary HTN Persistent hypoxia, patient asymptomatic continue O2 currently on 9 L of oxygen, ABGs on 05/16 consistent with hypoxia, no evidence of CO2 retention. Seen by Dr. Cramer, he recommend to treat with diuretics, steroids and to repeat a chest x-ray repeat chest x-ray showing small bilateral effusion right greater than the left with bibasilar atelectasis Dr. Lai recommend to switch to by mouth doxy and Augmentin for total 10 day treatment pulmonology to re-evaluate patient Encourage incentive spirometry ,out of bed to chair once down to 4-6L by [place], will check for Home o2 evaluation 2. New right sided CHF with severe pulmonary htn no evidence of systolic conge stive heart failure. No evidence of acute on chronic systolic or diastolic congestive heart failure. Noted to have positive fluid balance, with significantly elevated BNP therefore will give 1 dose of IV Lasix and follow urine output,repeat BNP DC PO lasix To give IV Lasix 40 mg bid for today 3. SHASHANK resolved likely was from overdiuresis, monitor renal fuction closely 4. COPD exacerbation DuoNebs q.i.d. prednisone 20mg daily, taper to 10mg starting today for a few more days 5. Dry Gangrene of the toes and fingers vsacular surgery as outpatient continue po Doxycycline 100 mg bid and Augmentin To discuss duration with ID DVT ppx, subcut. heparin Full Code
[2020-05-21] MEDS: Furosemide 40 MG/4 ML VIAL IVPUSH ×2 (13:15→18:47)
[2020-05-21 16:35] LABS: ABG Refer to POC result
[2020-05-21 16:35] LABS: ABG Base Excess -2.4 mmol/L; ABG HCO3 17 mmol/L (22-26); ABG pCO2 20 mmHg (32-45); ABG pH 7.53 (7.35-7.45); ABG pO2 48 mmHg (83-108)
[2020-05-21 17:07] LABS: B Type Natriuretic Peptide 2350 pg/mL (<100)
[2020-05-22] VITALS (7 sets, daily range): BP systolic 97–160; BP diastolic 56–83; PULSE 97–108; RESP 16–23; TEMP 36–36.6; O2SAT 92–93; BMI 23.9
[2020-05-22 07:32] LABS: Anion Gap 20 (12-20); Blood Urea Nitrogen 42 mg/dL (9-16); Calcium 8.7 mg/dL (8.4-10.2); Carbon Dioxide 20 mmol/L (22-29); Chloride 104 mmol/L (96-108); Creatinine Clr Calc Pharmacy 38.5; Estimated Glomerular Filt Rate 45; Glucose Random 95 mg/dL (60-115); Potassium 4.6 mmol/L (3.3-5.1); Sodium 139 mmol/L (135-145)
[2020-05-22] MEDS: Heparin Sodium,Porcine 5,000 UNIT/ML VIAL 5000 UNIT SUBCUT ×3 (10:04→23:30)
[2020-05-22] MEDS: Furosemide 40 MG/4 ML VIAL IVPUSH ×2 (10:05→18:40)
[2020-05-22] MEDS: Amoxicillin/Potassium Clav 875 MG TABLET PO ×2 (10:05→21:09)
[2020-05-22] MEDS: Aspirin Enteric Coated 81 MG TABLET.DR PO (10:05)
[2020-05-22] MEDS: predniSONE 20 MG TABLET PO (10:05)
[2020-05-22] MEDS: 0.9 % Sodium Chloride Flush 3 ML SYRINGE IVFLUSH ×3 (10:05→23:31)
--- NOTE | 2020-05-22 12:47 | PM.PNCARD ---
Subjective Subjective Date of Service: 05/22/20 Principal diagnosis: Congestive heart failure predominantly right-sided Interval history: She states that she feels okay. However, she still requiring a lot of oxygen. Review of Systems Review of Systems Yes all other systems are reviewed and are negative Cardiovascular: Reports as per HPI, Reports no additional cardiovascular complaints, Denies acrocyanosis, Denies cool extremities, Denies painful fingertips, Denies chest pain, Denies chest pain at rest, Denies diaphoresis, Denies syncope, Denies irregular heart rhythm, Denies claudication, Denies leg edema, Denies lightheadedness, Denies palpitations and Denies dyspnea Respiratory: Denies dyspnea Denies syncope Endocrine: Denies palpitations Physical Exam Vital Signs: Last Vital Signs Temp 97.9 F 05/22/20 11:52 Pulse 108 H 05/22/20 11:52 Resp 21 H 05/22/20 11:52 BP 100/66 05/22/20 11:52 Pulse Ox 92 05/22/20 00:00 Body Mass Index 23.9 Const General: cooperative, comfortable and no acute distress Orientation/consciousness: patient oriented x3 HENMT Other: Unremarkable Neck Neck: Yes normal visual inspection Chest Chest palpation & inspection: normal inspection of the chest Resp Auscultation: clear to auscultation bilaterally, crackles and no wheezes Cardio Jugular venous distension: no JVD Palpation: normal PMI Heart sounds: S1 normal heart sound present, S2 normal heart sound present, no gallops, Murmur heart sound present systolic holo and no rubs GI Palpation (GI): Soft to palpation Back/Spine/Pelvis Other: unremarkable Skin General skin exam: no rashes or lesions noted Neuro General: patient oriented x3 Extrem General: Yes edema (1+) Psych Mental Status: mental status grossly normal Results Labs and Meds Result diagrams: 05/21/20 06:14 05/22/20 05:58 Lab results: Laboratory Results - last 24 hr 05/21/20 05/21/20 05/22/20 16:24 16:25 05:58 O2 Saturation 81.0 ABG pH at Pt Temp 7.53 H ABG pCO2 at Pt Temp 20 L* ABG pO2 at Pt Temp 48 L* ABG HCO3 17 L ABG Base Excess (Actual) -2.4 Sodium 139 Potassium 4.6 Chloride 104 Carbon Dioxide 20 L Anion Gap 20 BUN 42 H Creatinine 1.19 Estim Creat Clear Calc 38.5 Estimated GFR 45 Random Glucose 95 Calcium 8.7 B-Natriuretic Peptide 2350 H Progress Note: A&P Assessment and plan (1) Acute on chronic right heart failure: Status: Acute (2) Acute cor pulmonale: Status: Acute (3) Nonrheumatic tricuspid valve regurgitation: Status: Acute Assessment and Plan: She appears very frail. Continues to require lot of supplemental oxygen. Need to involve Pulmonary to follow her. Otherwise consider repeating a CT scan of the chest. Continue diuretics but I highly doubt if right heart failure is the reason for her continued hypoxia and oxygen need. Discussed with . Fall Risk Details Current Medications: Current Medications Generic Name Dose Route Start Last Admin Trade Name Freq PRN Reason Stop Dose Admin Acetaminophen 650 mg 05/13/20 23:02 05/21/20 09:17 Acetaminophen 325 Mg Tablet PO 650 mg Q6H PRN Administration Pain, Mild (Pain Scale 1-3) Amoxicillin/Clavulanate Potassium 875 mg 05/20/20 21:00 05/22/20 10:05 Amoxicillin/Potassium Clav 875 Mg Tablet PO 875 mg Q12H SANTOSH Administration Aspirin 81 mg 05/14/20 09:00 05/22/20 10:05 Aspirin Enteric Coated 81 Mg Tablet. PO 81 mg DAILY SANTOSH Administration Doxycycline Hyclate 100 mg 05/20/20 21:00 05/22/20 10:05 Doxycycline Hyclate 100 Mg Tablet PO 100 mg Q12H SANTOSH Administration Furosemide 40 mg 05/21/20 11:15 05/22/20 10:05 Furosemide 40 Mg/4 Ml Vial IVPUSH 40 mg BID@0900,1800 SANTOSH Administration Protocol Heparin Sodium (Porcine) 5,000 unit 05/13/20 23:15 05/22/20 10:04 Heparin Sodium,Porcine 5,000 Unit/Ml Vial SUBCUT 5,000 unit Q8H SANTOSH Administration Prednisone 20 mg 05/17/20 09:00 05/22/20 10:05 Prednisone 20 Mg Tablet PO 20 mg DAILY SANTOSH Administration Sodium Chloride 3 ml 05/14/20 00:00 05/22/20 10:05 0.9 % Sodium Chloride Flush 3 Ml Syringe IVFLUSH 3 ml QSHIFT SANTOSH Administration Time Spent With Patient Time: Total time spent is greater than 50% in coordination of care (as documented) at patient's floor/unit and/or counseling patient: Time with patient: less than 15 minutes
--- NOTE | 2020-05-22 14:16 | HO.PM.IMPN ---
Subjective Subjective Date of Service: 05/22/20 Interval History: the patient was seen and evaluated this morning Laying in bed, feels comfortable overall but still requiring 9-11 L of oxygen ABG showing significant hypoxemia mixed alkalosis Denies any fever, chills or shortness of breath No reported other overnight events. Systemic review: No fever, chills or weakness No chest pain, palpitation Dyspnea with minimal exertion, feels comfortable was sitting down No abdominal pain, nausea or vomiting No urinary symptoms No any rash or wounds Physical Exam Vital Signs: Vital Signs: Last Vital Signs Temp 97.9 F 05/22/20 11:52 Pulse 108 H 05/22/20 11:52 Resp 21 H 05/22/20 11:52 BP 100/66 05/22/20 11:52 Pulse Ox 92 05/22/20 00:00 Body Mass Index 23.9 Const: Other: Constitutional : Alert, oriented, not in distress Neck : Normal inspection, Supple Cardiovascular : RRR, S1 S2, no lower extremity edema Respiratory : Fair bilateral air entry, no crackles, no wheezes or rhonchi, on oxygen supplement Gastrointestinal: soft, lax, Normal bowel sounds, Non tender Skin : Warm/Dry, No rash Neurological : Alert & oriented x3, No focal deficit Objective Data Current Medications Generic Name Dose Route Start Last Admin Trade Name Freq PRN Reason Stop Dose Admin Acetaminophen 650 mg 05/13/20 23:02 05/21/20 09:17 Acetaminophen 325 Mg Tablet PO 650 mg Q6H PRN Administration Pain, Mild (Pain Scale 1-3) Amoxicillin/Clavulanate Potassium 875 mg 05/20/20 21:00 05/22/20 10:05 Amoxicillin/Potassium Clav 875 Mg Tablet PO 875 mg Q12H SANTOSH Administration Aspirin 81 mg 05/14/20 09:00 05/22/20 10:05 Aspirin Enteric Coated 81 Mg Tablet. PO 81 mg DAILY SANTOSH Administration Doxycycline Hyclate 100 mg 05/20/20 21:00 05/22/20 10:05 Doxycycline Hyclate 100 Mg Tablet PO 100 mg Q12H [facility] Administration Furosemide 40 mg 05/21/20 11:15 05/22/20 10:05 Furosemide 40 Mg/4 Ml Vial IVPUSH 40 mg BID@0900,1800 [facility] Administration Protocol Heparin Sodium (Porcine) 5,000 unit 05/13/20 23:15 05/22/20 10:04 Heparin Sodium,Porcine 5,000 Unit/Ml Vial SUBCUT 5,000 unit Q8H [facility] Administration Prednisone 20 mg 05/17/20 09:00 05/22/20 10:05 Prednisone 20 Mg Tablet PO 20 mg DAILY SANTOSH Administration Sodium Chloride 3 ml 05/14/20 00:00 05/22/20 10:05 0.9 % Sodium Chloride Flush 3 Ml Syringe IVFLUSH 3 ml QSHIFT [facility] Administration Labs CBC & Chem 7: 05/21/20 06:14 05/22/20 05:58 Microbiology Microbiology Results: Microbiology 05/13/20 16:16 Blood - Venous Blood Culture - Final No growth after 5 days. 05/13/20 16:03 Blood - Venous Blood Culture - Final No growth after 5 days. 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 Noted to have new onset CHF. 1. Acute hypoxic resp failure multifactorial including CHF, Beurger's, COPD (undiagnosed ??), pulmonary HTN Persistent hypoxia, patient asymptomatic continue O2 currently on 9 L of oxygen ABGs on 05/22 consistent with hypoxia, no evidence of CO2 retention. Pulmonology input appreciated, diuretics, steroids and to repeat imaging Dr. Lai recommend to switch to by mouth doxy and Augmentin for total 3/10 day treatment pulmonology to re-evaluate patient Cardiology input appreciated, recheck for PE To do CTA Encourage incentive spirometry ,out of bed to chair once down to 4-6L by [place], will check for Home o2 evaluation 2. New right sided CHF with severe pulmonary htn no evidence of systolic congestive heart failure. significantly elevated BNP therefore Continue IV Lasix and follow urine output,repeat BNP 3. SHASHANK resolved likely was from overdiuresis, monitor renal fuction closely 4. COPD exacerbation DuoNebs q.i.d. prednisone 20mg daily, taper to 10mg on Saturday 5. Dry Gangrene of the toes and fingers Chronic osteomyelitis vsacular surgery as outpatient continue po Doxycycline 100 mg bid and Augmentin total 10 days DVT ppx, subcut. heparin Full Code
[2020-05-22] MEDS: iohexoL 350 MG/ML 75 ML INFUS..BTL IV (17:36)
--- NOTE | 2020-05-22 21:20 | PM.PNPUL ---
Subjective Subjective Date of Service: 05/21/20 Principal diagnosis: Congestive heart failure predominantly right-sided Interval history: Seen and examined. Doing about the same. On increased oxygen requirements. Difficult to guage her pox based on her PAD. CXR with persistent pleural effusions. Objective Data Labs CBC & Chem 7: 05/21/20 06:14 05/22/20 05:58 Labs: Laboratory Results - last 24 hr 05/22/20 05:58 Sodium 139 Potassium 4.6 Chloride 104 Carbon Dioxide 20 L Anion Gap 20 BUN 42 H Creatinine 1.19 Estim Creat Clear Calc 38.5 Estimated GFR 45 Random Glucose 95 Calcium 8.7 Microbiology Microbiology Results: Microbiology 05/13/20 16:16 Blood - Venous Blood Culture - Final No growth after 5 days. 05/13/20 16:03 Blood - Venous Blood Culture - Final No growth after 5 days. Review of Systems Constitutional: Denies night sweats Denies change in voice, Denies lip swelling, Denies mouth pain, Reports nasal congestion, Reports nasal discharge and Denies tongue swelling Cardiovascular: Denies chest pain and Reports dyspnea Respiratory: Reports cough and Reports dyspnea Gastrointestinal: Denies abdominal pain Musculoskeletal: Reports atrophy and Reports deformity Denies Neuro-related abnormal movements Psychiatric: Denies no additional psychiatric complaints Hematologic/Lymphatic: Denies easy bleeding and Denies lymphadenopathy Allergic/Immunologic: Denies lip swelling and Denies tongue swelling Physical Exam Vital Signs: Vital Signs: Last Vital Signs Temp 97.6 F 05/22/20 19:16 Pulse 100 05/22/20 19:16 Resp 16 05/22/20 19:16 BP 160/56 H 05/22/20 19:16 Pulse Ox 92 05/22/20 19:16 Body Mass Index 23.9 Const: General: alert Neck: Neck: Yes normal visual inspection, Yes full ROM and Yes no lymphadenopathy Chest: Chest palpation & inspection: normal inspection of the chest Resp: Auscultation: diminished lung sounds Cardio: Rate: regular rate Rhythm: regular rhythm Heart sounds: S1 normal heart sound present and S2 normal heart sound present GI: Palpation (GI): Soft to palpation and nontender Auscultation: normal bowel sounds : General: Yes no CVA tenderness Back/Spine/Pelvis: Back: no CVA tenderness Skin: General skin exam: mottling Assessment and Plan Assessment and plan (1) Acute respiratory failure with hypoxia: Status: Acute (2) Congestive heart failure: Status: Acute (3) Pleural effusion: Status: Acute Assessment and Plan: Continue oxygen supplemetation ABG Agree with additional diuresis as tolerated Consider thoracenthesis if no better Time Spent With Patient Time: Total time spent is greater than 50% in coordination of care (as documented) at patient's floor/unit and/or counseling patient: Time with patient: 15 - 24 minutes
[2020-05-23] VITALS (10 sets, daily range): BP systolic 99–124; BP diastolic 65–85; PULSE 92–112; RESP 18–22; TEMP 36–37.1; O2SAT 91–99; BMI 22.8
[2020-05-23 07:35] LABS: Anion Gap 21 (12-20); Blood Urea Nitrogen 40 mg/dL (9-16); Calcium 8.4 mg/dL (8.4-10.2); Carbon Dioxide 14 mmol/L (22-29); Chloride 106 mmol/L (96-108); Creatinine Clr Calc Pharmacy 41.2; Estimated Glomerular Filt Rate 49; Glucose Random 78 mg/dL (60-115); Potassium 5.1 mmol/L (3.3-5.1); Sodium 136 mmol/L (135-145)
[2020-05-23] MEDS: 0.9 % Sodium Chloride Flush 3 ML SYRINGE IVFLUSH ×2 (09:01→20:31)
[2020-05-23] MEDS: Furosemide 40 MG/4 ML VIAL IVPUSH ×2 (09:01→18:56)
[2020-05-23] MEDS: Amoxicillin/Potassium Clav 875 MG TABLET PO ×2 (09:01→20:38)
[2020-05-23] MEDS: predniSONE 20 MG TABLET PO (09:01)
--- NOTE | 2020-05-23 12:24 | MHC.CM.PN ---
per multi dis rounds pt expected dc in 1 to 2 days physical therapy recommends pulmonary rehab
[2020-05-23] MEDS: Albuterol/Iprat 2.5/0.5MG 3 ML AMPUL.NEB INHALE ×3 (12:42→19:39)
--- NOTE | 2020-05-23 15:40 | HO.PM.IMPN ---
Subjective Subjective Date of Service: 05/23/20 Interval History: the patient was seen and evaluated this morning Laying in bed, feels comfortable overall but still requiring 9 L of oxygen Repeated chest CT scan showing bilateral effusions Denies any fever, chills or shortness of breath No reported other overnight events. Systemic review: No fever, chills or weakness No chest pain, palpitation Dyspnea with minimal exertion, feels comfortable was sitting down No abdominal pain, nausea or vomiting No urinary symptoms No any rash or wounds Physical Exam Vital Signs: Vital Signs: Last Vital Signs Temp 97.1 F 05/23/20 15:13 Pulse 100 05/23/20 15:13 Resp 18 05/23/20 15:13 BP 123/78 05/23/20 15:13 Pulse Ox 99 05/23/20 15:13 Body Mass Index 22.8 Const: Other: Constitutional : Alert, oriented, not in distress Neck : Normal inspection, Supple Cardiovascular : RRR, S1 S2, no lower extremity edema Respiratory : Fair bilateral air entry decreased at the bases, no crackles, no wheezes or rhonchi, on oxygen supplement Gastrointestinal: soft, lax, Normal bowel sounds, Non tender Skin : Warm/Dry, No rash Neurological : Alert & oriented x3, No focal deficit Objective Data Current Medications Generic Name Dose Route Start Last Admin Trade Name Freq PRN Reason Stop Dose Admin Acetaminophen 650 mg 05/13/20 23:02 05/21/20 09:17 Acetaminophen 325 Mg Tablet PO 650 mg Q6H PRN Administration Pain, Mild (Pain Scale 1-3) Albuterol/Ipratropium 3 ml 05/23/20 12:00 05/23/20 12:42 Albuterol/Iprat 2.5/0.5mg 3 Ml Ampul.Neb INHALE 3 ml RQ4H WHILE AWAKE SANTOSH Administration Amoxicillin/Clavulanate Potassium 875 mg 05/20/20 21:00 05/23/20 09:01 Amoxicillin/Potassium Clav 875 Mg Tablet PO 875 mg Q12H [facility] Administration Aspirin 81 mg 05/14/20 09:00 05/22/20 10:05 Aspirin Enteric Coated 81 Mg Tablet. PO 81 mg DAILY [facility] Administration Doxycycline Hyclate 100 mg 05/20/20 21:00 05/23/20 09:01 Doxycycline Hyclate 100 Mg Tablet PO 100 mg Q12H [facility] Administration Furosemide 40 mg 05/21/20 11:15 05/23/20 09:01 Furosemide 40 Mg/4 Ml Vial IVPUSH 40 mg BID@0900,1800 [facility] Administration Protocol Heparin Sodium (Porcine) 5,000 unit 05/13/20 23:15 05/22/20 23:30 Heparin Sodium,Porcine 5,000 Unit/Ml Vial SUBCUT 5,000 unit Q8H [facility] Administration Prednisone 20 mg 05/17/20 09:00 05/23/20 09:01 Prednisone 20 Mg Tablet PO 20 mg DAILY [facility] Administration Sodium Chloride 3 ml 05/14/20 00:00 05/23/20 09:01 0.9 % Sodium Chloride Flush 3 Ml Syringe IVFLUSH 3 ml QSHIFT [facility] Administration Labs CBC & Chem 7: 05/21/20 06:14 05/23/20 06:21 Microbiology Microbiology Results: Microbiology 05/13/20 16:16 Blood - Venous Blood Culture - Final No growth after 5 days. 05/13/20 16:03 Blood - Venous Blood Culture - Final No growth after 5 days. 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 Noted to have new onset CHF. 1. Acute hypoxic resp failure multifactorial including CHF, Beurger's, COPD (undiagnosed ??), pulmonary HTN Persistent hypoxia, patient asymptomatic continue O2 currently on 9 L of oxygen ABGs on 05/22 consistent with hypoxia, no evidence of CO2 retention. Pulmonology input appreciated, diuretics, steroids and to repeat imaging Dr. Lai recommend to switch to by mouth doxy and Augmentin for total 3/10 day treatment pulmonology to re-evaluate patient Cardiology input appreciated, recheck for PE Repeat CTA showed no PE but bilateral effusions more on the left side Encourage incentive spirometry ,out of bed to chair once down to 4-6L by [place], will check for Home o2 evaluation 2. New right sided CHF with severe pulmonary htn 3. Pleural effusions bilaterally no evidence of systolic congestive heart failure. significantly elevated BNP therefore Continue IV Lasix and follow urine output,repeat BNP Check with IR for thoracentesis 3. SHASHANK resolved likely was from overdiuresis, monitor renal fuction closely 4. COPD exacerbation DuoNebs q.i.d. prednisone 20mg daily, taper to 10mg on Saturday 5. Dry Gangrene of the toes and fingers Chronic osteomyelitis vsacular surgery as outpatient continue po Doxycycline 100 mg bid and Augmentin total 10 days DVT ppx, subcut. heparin Full Code
[2020-05-24] VITALS (10 sets, daily range): BP systolic 91–153; BP diastolic 62–76; PULSE 90–98; RESP 18–20; TEMP 35.6–37.1; O2SAT 90–97; BMI 24.9
[2020-05-24] MEDS: 0.9 % Sodium Chloride Flush 3 ML SYRINGE IVFLUSH ×4 (00:45→20:34)
[2020-05-24] MEDS: Acetaminophen 325 MG TABLET 650 MG PO ×3 (00:55→17:11)
[2020-05-24 06:38] LABS: Alanine Aminotransferase 24 U/L (0-31); Albumin Level 2.9 g/dL (3.5-5.0); Alkaline Phosphatase 232 U/L (39-117); Anion Gap 20 (12-20); Aspartate Amino Transferase 22 U/L (5-31); Bilirubin Direct 0.5 mg/dL (0.0-0.5); Bilirubin Total 1.1 mg/dL (0.0-1.0); Blood Urea Nitrogen 43 mg/dL (9-16); Calcium 8.7 mg/dL (8.4-10.2); Carbon Dioxide 19 mmol/L (22-29); Chloride 102 mmol/L (96-108); Creatinine Clr Calc Pharmacy 50.1; Estimated Glomerular Filt Rate 56; Glucose Random 97 mg/dL (60-115); Lactate Dehydrogenase 334 U/L (122-220); Potassium 4.3 mmol/L (3.3-5.1); Sodium 137 mmol/L (135-145)
[2020-05-24] MEDS: Albuterol/Iprat 2.5/0.5MG 3 ML AMPUL.NEB INHALE ×3 (07:46→19:45)
[2020-05-24] MEDS: Furosemide 40 MG/4 ML VIAL IVPUSH ×2 (09:48→17:12)
[2020-05-24] MEDS: Amoxicillin/Potassium Clav 875 MG TABLET PO ×2 (09:48→20:30)
[2020-05-24] MEDS: predniSONE 20 MG TABLET PO (09:48)
--- NOTE | 2020-05-24 14:57 | P.PNIM_ITS ---
Subjective Subjective Date of Service: 05/24/20 Interval History: The patient was seen and evaluated this morning Laying in bed, feels comfortable overall and weaning down oxygen to 6 L today Repeated chest CT scan showing bilateral effusions with plan for thoracentesis Denies any fever, chills or shortness of breath No reported other overnight events. Systemic review: No fever, chills or weakness No chest pain, palpitation Dyspnea with minimal exertion, feels comfortable was sitting down No abdominal pain, nausea or vomiting No urinary symptoms No any rash or wounds Physical Exam Vital Signs: Vital Signs: Last Vital Signs Temp 98 F 05/24/20 14:09 Pulse 90 05/24/20 14:09 Resp 18 05/24/20 14:09 BP 153/73 H 05/24/20 14:09 Pulse Ox 97 05/24/20 14:09 Body Mass Index 24.9 Const: Other: Constitutional : Alert, oriented, not in distress Neck : Normal inspection, Supple Cardiovascular : RRR, S1 S2, no lower extremity edema Respiratory : Fair bilateral air entry decreased at the bases, no crackles, no wheezes or rhonchi, on oxygen supplement Gastrointestinal: soft, lax, Normal bowel sounds, Non tender Skin : Warm/Dry, No rash Neurological : Alert & oriented x3, No focal deficit Objective Data Current Medications Generic Name Dose Route Start Last Admin Trade Name Freq PRN Reason Stop Dose Admin Acetaminophen 650 mg 05/13/20 23:02 05/24/20 10:04 Acetaminophen 325 Mg Tablet PO 650 mg Q6H PRN Administration Pain, Mild (Pain Scale 1-3) Albuterol/Ipratropium 3 ml 05/23/20 12:00 05/24/20 14:54 Albuterol/Iprat 2.5/0.5mg 3 Ml Ampul.Neb INHALE 3 ml RQ4H WHILE AWAKE SANTOSH Administration Amoxicillin/Clavulanate Potassium 875 mg 05/20/20 21:00 05/24/20 09:48 Amoxicillin/Potassium Clav 875 Mg Tablet PO 875 mg Q12H [facility] Administration Aspirin 81 mg 05/14/20 09:00 05/22/20 10:05 Aspirin Enteric Coated 81 Mg Tablet. PO 81 mg DAILY SANT[facility]H Administration Doxycycline Hyclate 100 mg 05/20/20 21:00 05/24/20 09:48 Doxycycline Hyclate 100 Mg Tablet PO 100 mg Q12H [facility] Administration Furosemide 40 mg 05/21/20 11:15 05/24/20 09:48 Furosemide 40 Mg/4 Ml Vial IVPUSH 40 mg BID@0900,1800 [facility] Administration Protocol Heparin Sodium (Porcine) 5,000 unit 05/13/20 23:15 05/23/20 20:32 Heparin Sodium,Porcine 5,000 Unit/Ml Vial SUBCUT Not Given Q8H [facility] Prednisone 20 mg 05/17/20 09:00 05/24/20 09:48 Prednisone 20 Mg Tablet PO 20 mg DAILY SANTOSH Administration Sodium Chloride 3 ml 05/14/20 00:00 05/24/20 09:48 0.9 % Sodium Chloride Flush 3 Ml Syringe IVFLUSH 3 ml QSHIFT SANTOSH Administration Labs CBC & Chem 7: 05/21/20 06:14 05/24/20 05:36 Microbiology Microbiology Results: Microbiology 05/13/20 16:16 Blood - Venous Blood Culture - Final No growth after 5 days. 05/13/20 16:03 Blood - Venous Blood Culture - Final No growth after 5 days. Assessment and Plan (1) Acute respiratory failure with hypoxia: Status: Acute (2) Thromboangiitis obliterans (Buerger's disease): Status: Acute (3) Nonrheumatic tricuspid valve regurgitation: Status: Acute (4) Osteomyelitis: Status: Acute (5) Congestive heart failure: Status: Acute (6) Peripheral vascular disease: Status: Acute (7) Dry gangrene: Status: Acute (8) Elevated lactic acid level: Status: Acute (9) Acute on chronic right heart failure: Status: Acute Assessment and Plan: 69-year-old female with a past medical history of Buergers disease complicated b y ischemic and necrotic toes and fingers, COPD presented to the hospital with shortness of breath. Noted to have new onset CHF. 1. Acute hypoxic resp failure multifactorial including CHF, Beurger's, COPD (undiagnosed ??), pulmonary HTN Persistent hypoxia, patient asymptomatic continue O2 currently on6 L of oxygen today ABGs on 05/22 consistent with hypoxia, no evidence of CO2 retention. Pulmonology input appreciated, diuretics, steroids and to repeat imaging Cardiology input appreciated Repeat CTA showed no PE but bilateral effusions more on the left side Encourage incentive spirometry ,out of bed to chair once down to 4-6L by [place], will check for Home o2 evaluation 2. New right sided CHF with severe pulmonary htn 3. Pleural effusions bilaterally no evidence of systolic congestive heart failure. significantly elevated BNP therefore Continue IV Lasix and follow urine output,repeat BNP Plan with IR for thoracentesis 3. SHASHANK resolved likely was from overdiuresis, monitor renal fuction closely 4. COPD exacerbation DuoNebs q.i.d. prednisone 20mg daily, taper to 10mg on Saturday 5. Dry Gangrene of the toes and fingers Chronic osteomyelitis vsacular surgery as outpatient Dr. Lai recommend to switch to by mouth doxy and Augmentin for total 5/10 day treatment DVT ppx, subcut. heparin Full Code
[2020-05-25] VITALS (10 sets, daily range): BP systolic 93–103; BP diastolic 51–64; PULSE 60–112; RESP 16–22; TEMP 36.1–37.3; O2SAT 83–98; BMI 24.7
[2020-05-25 07:33] LABS: Glucose Pleural Fluid 117; LDH Pleural Fluid 122; Total Protein Pleural Fluid 2.2
[2020-05-25] MEDS: 0.9 % Sodium Chloride Flush 3 ML SYRINGE IVFLUSH ×2 (08:49→15:41)
[2020-05-25] MEDS: Amoxicillin/Potassium Clav 875 MG TABLET PO ×2 (08:49→20:34)
[2020-05-25] MEDS: predniSONE 20 MG TABLET PO (08:49)
[2020-05-25] MEDS: Furosemide 40 MG/4 ML VIAL IVPUSH (08:50)
[2020-05-25] MEDS: Acetaminophen 325 MG TABLET 650 MG PO (08:55)
[2020-05-25] MEDS: Albuterol/Iprat 2.5/0.5MG 3 ML AMPUL.NEB INHALE ×3 (11:00→20:09)
--- NOTE | 2020-05-25 12:00 | MHC.CM.PN ---
pt to be transferred today at 1;00 TO [facility] LEFT FOR SON ASYA MILLS SA,ME
[2020-05-25 13:30] LABS: COVID-19 Test Negative (Negative)
--- NOTE | 2020-05-25 14:04 | HO.PM.IMPN ---
Subjective Subjective Date of Service: 05/25/20 Interval History: The patient was seen and evaluated this morning Laying in bed, feels comfortable overall and weaning down oxygen to 6 L today. Noticed to drop to 80s with ambulation Had thoracentesis yesterday Denies any fever, chills or shortness of breath No reported other overnight events. Systemic review: No fever, chills or weakness No chest pain, palpitation Dyspnea with minimal exertion, feels comfortable was sitting down No abdominal pain, nausea or vomiting No urinary symptoms No any rash or wounds Physical Exam Vital Signs: Vital Signs: Last Vital Signs Temp 98 F 05/25/20 10:45 Pulse 112 H 05/25/20 11:00 Resp 22 H 05/25/20 10:45 BP 100/58 L 05/25/20 10:45 Pulse Ox 92 05/25/20 10:45 Body Mass Index 24.7 Const: Other: Constitutional : Alert, oriented, not in distress Neck : Normal inspection, Supple Cardiovascular : RRR, S1 S2, no lower extremity edema Respiratory : Fair bilateral air entry decreased at the bases, no crackles, no wheezes or rhonchi, on oxygen supplement Gastrointestinal: soft, lax, Normal bowel sounds, Non tender Skin : Warm/Dry, No rash Neurological : Alert & oriented x3, No focal deficit Objective Data Current Medications Generic Name Dose Route Start Last Admin Trade Name Linda PRN Reason Stop Dose Admin Acetaminophen 650 mg 05/13/20 23:02 05/25/20 08:55 Acetaminophen 325 Mg Tablet PO 650 mg Q6H PRN Administration Pain, Mild (Pain Scale 1-3) Albuterol/Ipratropium 3 ml 05/23/20 12:00 05/25/20 11:00 Albuterol/Iprat 2.5/0.5mg 3 Ml Ampul.Neb INHALE 3 ml RQ4H WHILE AWAKE SANTOSH Administration Amoxicillin/Clavulanate Potassium 875 mg 05/20/20 21:00 05/25/20 08:49 Amoxicillin/Potassium Clav 875 Mg Tablet PO 875 mg Q12H SANTOSH Administration Aspirin 81 mg 05/14/20 09:00 05/22/20 10:05 Aspirin Enteric Coated 81 Mg Tablet. PO 81 mg DAILY SANTOSH Administration Doxycycline Hyclate 100 mg 05/20/20 21:00 05/25/20 08:49 Doxycycline Hyclate 100 Mg Tablet PO 100 mg Q12H [facility] Administration Furosemide 40 mg 05/25/20 18:00 Furosemide 40 Mg Tablet PO BID@0900,1800 [facility] Protocol Heparin Sodium (Porcine) 5,000 unit 05/13/20 23:15 05/23/20 20:32 Heparin Sodium,Porcine 5,000 Unit/Ml Vial SUBCUT Not Given Q8H [facility] Prednisone 10 mg 05/26/20 09:00 Prednisone 10 Mg Tablet PO DAILY [facility] Sodium Chloride 3 ml 05/14/20 00:00 05/25/20 08:49 0.9 % Sodium Chloride Flush 3 Ml Syringe IVFLUSH 3 ml QSHIFT [facility] Administration Labs CBC & Chem 7: 05/21/20 06:14 05/24/20 05:36 Microbiology Microbiology Results: Microbiology 05/13/20 16:16 Blood - Venous Blood Culture - Final No growth after 5 days. 05/13/20 16:03 Blood - Venous Blood Culture - Final No growth after 5 days. 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 Noted to have new onset CHF. 1. Acute hypoxic resp failure multifactorial including CHF, Beurger's, COPD (undiagnosed ??), pulmonary HTN Persistent hypoxia, patient asymptomatic continue O2 currently on6 L of oxygen today, desaturation to 80s with ambulation Pulmonology input appreciated, diuretics, steroids and to repeat imaging Cardiology input appreciated Repeat CTA showed no PE but bilateral effusions more on the left side Encourage incentive spirometry ,out of bed to chair 2. New right sided CHF with severe pulmonary htn 3. Pleural effusions bilaterally no evidence of systolic congestive heart failure. significantly elevated BNP therefore Discontinue IV Lasix, start Lasix 40 mg p.o. b.i.d. Had thoracentesis on 05/24/2020 3. SHASHANK resolved likely was from overdiuresis, monitor renal fuction closely 4. COPD exacerbation DuoNebs q.i.d. prednisone 20mg daily, taper to 10mg on Saturday 5. Dry Gangrene of the toes and fingers Chronic osteomyelitis vsacular surgery as outpatient Dr. Lai recommend to switch to by mouth doxy and Augmentin for total 6/10 day treatment DVT ppx, subcut. heparin Dispo: Plan was to DC the patient but she feels uncomfortable going to rehab today.
--- NOTE | 2020-05-25 16:05 | MHC.CM.PN ---
dc cancelled due to f/c not being taken out till 3:00 need to see if pt can void..
[2020-05-25] MEDS: Furosemide 40 MG TABLET PO (18:17)
[2020-05-26] VITALS (7 sets, daily range): BP systolic 90–130; BP diastolic 51–76; PULSE 67–92; RESP 18–20; TEMP 36.4–36.6; O2SAT 89–95; BMI 24.5
[2020-05-26] MEDS: 0.9 % Sodium Chloride Flush 3 ML SYRINGE IVFLUSH ×2 (01:29→08:20)
[2020-05-26] MEDS: Albuterol/Iprat 2.5/0.5MG 3 ML AMPUL.NEB INHALE ×2 (07:56→12:14)
[2020-05-26] MEDS: Amoxicillin/Potassium Clav 875 MG TABLET PO (08:20)
[2020-05-26] MEDS: Furosemide 40 MG TABLET PO (08:20)
[2020-05-26] MEDS: predniSONE 10 MG TABLET PO (08:20)
--- NOTE | 2020-05-26 11:24 | MHC.CM.PN ---
Patient has been medically cleared for dc to SNF today.Patient will dc to [facility] today at 2:30 PM, via [facility]. Patient and her Son/Adarsh @ are aware of and in agreement with this dc plan.Last IMM addressed on 05/24/2020.
--- NOTE | 2020-05-26 11:27 | PM.DS ---
DS: Providers Provider Date of Service: 05/26/20 Date of admission: 05/13/20 23:03 Primary care physician: None Physician Consults: 05/13/20 23:02 Consult to General Surgery Stat Consulting Provider: Art Sun Reason for consultation: Toe gangrene; hx PVD; Consult to Infectious Diseases Routine Consulting Provider: Lissette Lai Reason for consultation: Osteomyelitis/gangrene of toes 05/13/20 23:05 Consult to Cardiology Routine Consulting Provider: Timothy Simental Reason for consultation: chf 05/14/20 02:51 Consult to Pulmonology Routine Consulting Provider: Florentino Cramer Reason for consultation: Hypoxia DS: Diagnosis Discharge Diagnosis (1) Acute respiratory failure with hypoxia: Status: Acute (2) Thromboangiitis obliterans (Buerger's disease): Status: Acute (3) Nonrheumatic tricuspid valve regurgitation: Status: Acute (4) Osteomyelitis: Status: Acute (5) Congestive heart failure: Status: Acute (6) Peripheral vascular disease: Status: Acute (7) Dry gangrene: Status: Acute (8) Elevated lactic acid level: Status: Acute (9) Acute on chronic right heart failure: Status: Acute DS: Medications Discharge Medications Home Medications: Home Medications Medication Instructions Recorded Confirmed aspirin 81 mg PO DAILY 05/13/20 05/13/20 Previous Rx's Medication Instructions Recorded amoxicillin-pot clavulanate 875 mg PO Q12H 5 Days #9 tab 05/25/20 doxycycline hyclate 100 mg PO Q12H 5 Days #10 tab 05/25/20 furosemide 40 mg PO BID@0900,1800 30 Days tab 05/25/20 ipratropium-albuterol 3 ml INHALATION RQ4H WHILE AWAKE 05/25/20 30 Days ml prednisone 10 mg PO DAILY 3 Days #3 tab 05/25/20 DS: Summary Hospital Course Hospital Course: 69-year-old female with a 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 Noted to have new onset CHF. Patient was admitted for acute hypoxic respiratory failure secondary to COPD, pulmonary hypertension, right-sided CHF, beugers disease. She received IV diuresis which was then complicated by acute kidney injury, after holding diuresis renal function improved to normal. She was then restarted on oral diuretics. Patient was also noted to have bilateral pleural effusions likely due to her right-sided CHF. She underwent therapeutic thoracentesis with 1 L of fluid removed. With improvement of her hypoxia. Patient was able to be weaned down to 6 L of oxygen. She was also given IV steroids for COPD and slowly tapered down. Patient noted to have dry gangrene due to beugers. She was seen by ID recommended 10 days of Augmentin and doxycycline. She will follow-up vascular surgery as outpatient. Patient is now medically stable for discharge to intermediate facility. Time Spent with Patient Time attestation: Total time spent providing and/or coordinating discharge services: Discharge coordination time: Greater than 30 minutes Physical Exam Vital Signs: Vital Signs: Last Vital Signs Temp 98 F 05/26/20 10:43 Pulse 92 05/26/20 10:43 Resp 18 05/26/20 10:43 BP 90/51 L 05/26/20 10:43 Pulse Ox 89 L 05/26/20 10:43 Body Mass Index 24.5 Other: General: AO X 3, no acute distress Resp: dminshed CVS: S1,S2,RRR GI: +BS, NT, no distention Skin:necrotic toes and fingers DS: Data Data Completed and Pending Labs on day of discharge: Laboratory Results - last 24 hr 05/25/20 05/25/20 11:40 13:00 COVID-19 ([facility]) TNP Negative COVID-19 Clin Com TNP See Note Discharge Plan Discharge Patient Disposition: [facility] Referrals: Boy Mendoza [Outside] Art Sun MD [Physician] - Physician,None [Primary Care Provider] - Discharge Medications: New furosemide 40 mg Tablet 40 mg PO BID@0900,1800 30 Days RF: 0 prednisone 10 mg Tablet 10 mg PO DAILY 3 Days Qty: 3 RF: 0 ipratropium-albuterol 0.5 mg-3 mg(2.5 mg base)/3 mL Solution For Nebulization 3 ml inhalation RQ4H WHILE AWAKE 30 Days RF: 0 doxycycline hyclate 100 mg Tablet 100 mg PO Q12H 5 Days Qty: 10 RF: 0 amoxicillin-pot clavulanate 875-125 mg Tablet 875 mg PO Q12H 5 Days Qty: 9 RF: 0 Continued aspirin 81 mg Tablet 81 mg PO DAILY RF: 0 Discharge Orders: Discharge Order (Routine); Ordered 05/26/20 Ordered By: Sylvester Mantilla Diet: advance to usual diet Activity on Discharge: As tolerated Stand Alone Forms: Patient Portal Discharge page Care Plan Goals: Read below Health Concerns: Read below Plan of Treatment: You were admitted to the hospital for evaluation of difficulty breathing. Found to have right-sided heart failure and fluids around your lungs. You were evaluated by counter manager and field research associate. Treated with diuretics, steroids with good response over the course of hospital stay as you oxygen requirements were weaned down steadily. Tapping over the fluid surrounding your lungs was done. You were noted to have dry gangrene of your does. Evaluated by infectious disease specialist who recommended treatment with oral antibiotics. To continue Augmentin and doxycycline for 5 more days. Plan to go for short-term rehab to continue your treatment and try to be new down the oxygen as much as tolerated.
== END 2020-05-26 15:10 | disposition skilled nursing facility (03) | DRG 292 ==
LOC: HO.ED 22:05 → HO.EDOVER 23:23 → HO.IMC 23:33
PROVIDERS: Hospitalist; Internal Medicine; Physician Assistant Medical; Radiology Diagnostic Radiology; Student in an Organized Health Care Education/Training Program; Admitting Provider Hospitalist; Emergency Provider Emergency Medicine Emergency Medical Services; PCP Internal Medicine; Visit Provider Internal Medicine
PROC: 0W993ZZ Drainage of Right Pleural Cavity, Percutaneous Approach (ICD-10-PCS; principal; 2020-05-24 11:30)
DX: I50.813 Acute on chronic right heart failure (principal); J44.1 Chronic obstructive pulmonary disease with (acute) exacerbation; E87.2 Acidosis; N17.9 Acute kidney failure, unspecified; M86.34 Chronic multifocal osteomyelitis, hand; M86.372 Chronic multifocal osteomyelitis, left ankle and foot; M86.371 Chronic multifocal osteomyelitis, right ankle and foot; I36.1 Nonrheumatic tricuspid (valve) insufficiency; I27.29 Other secondary pulmonary hypertension; I73.1 Thromboangiitis obliterans [Buerger's disease]; Z20.822 Contact with and (suspected) exposure to COVID-19; Z87.891 Personal history of nicotine dependence; Z79.82 Long term (current) use of aspirin; Z79.899 Other long term (current) drug therapy
CPT/HCPCS: 32555; 36415; 36600; 71045; 71046; 71275; 73620; 80048; 80053; 80076; 80202; 81003; 82565; 82945; 83605; 83615; 83880; 84157; 84484; 85025; 85027; 85610; 85652; 85730; 87040; 87635; 93005; 93306; 93923; 93925; 94640; 94644; 96365; 96375; 97110; 97116; 97162; 99285; C1758; J1940; J2060; J2270; J2543; J2920; J2930; J3370; Q9967

== ENCOUNTER 2020-06-14 12:08 | Outpatient (REF) | payer MEDICARE, OTHER, SELFPAY ==
[2020-06-14 12:24] LABS: Glucose Urine UA NEG (NEG); Leukocyte Esterase Urine 1+ (NEG); Nitrite Urine POS (NEG); Specific Gravity - Urine >= 1.030 (1.005-1.025); Urine Blood 3+ (NEG); Urine Ketones NEG (NEG); Urine Protein 2+ MG/DL (NEG-TRACE)
[2020-06-14 12:27] LABS: Appearance Urine CLOUDY; Color Urine YELLOW
[2020-06-14 12:30] LABS: Bacteria Urine 2+ /LPF; RBC Urine TNTC /HPF (0); WBC Urine TNTC /HPF (0-4)
== END 2020-06-14 12:09 | disposition home or self-care (01) ==
LOC: HO.MMNH1L 12:08
PROVIDERS: Visit Provider Family Medicine
DX: R30.0 Dysuria (principal); I73.9 Peripheral vascular disease, unspecified
CPT/HCPCS: 81001; 87086; 87088; 87186; 99212

== ENCOUNTER 2020-06-20 05:00 | Outpatient (REF) | payer MEDICARE, OTHER, SELFPAY | END 2020-06-20 05:01 | disposition home or self-care (01) | LOC: HO.MMNH1L 05:00 | PROVIDERS: Visit Provider Family Medicine | DX: Z13.89 Encounter for screening for other disorder (principal) ==

== ENCOUNTER → 2020-06-30 09:01 | Outpatient (BNVA) | payer MEDICARE, OTHER, SELFPAY | PROVIDERS: PCP Family Medicine; Visit Provider Internal Medicine Pulmonary Disease | DX: I50.810 Right heart failure, unspecified (principal); I27.81 Cor pulmonale (chronic); I27.20 Pulmonary hypertension, unspecified; J96.01 Acute respiratory failure with hypoxia; I73.1 Thromboangiitis obliterans [Buerger's disease]; J44.9 Chronic obstructive pulmonary disease, unspecified; R60.0 Localized edema; I36.1 Nonrheumatic tricuspid (valve) insufficiency; I73.9 Peripheral vascular disease, unspecified; Z87.891 Personal history of nicotine dependence; Z99.81 Dependence on supplemental oxygen | CPT/HCPCS: 99212 ==

== ENCOUNTER 2020-07-11 00:26 | Outpatient (REF) | payer SELFPAY | END 2020-07-11 00:27 | disposition home or self-care (01) | LOC: HO.MMNH1L 00:26 | PROVIDERS: Visit Provider Family Medicine | DX: Z13.89 Encounter for screening for other disorder (principal) ==

== ENCOUNTER 2020-07-15 12:40 | Emergency (ER) | payer SELFPAY ==
[2020-07-15 13:00] VITALS: BMI 22.0
--- NOTE | 2020-07-15 13:00 | ED.CPR ---
HPI - CPR General Chief Complaint: Cardiac Arrest/CPR Stated Complaint: cardiac arrest Time Seen by Provider: 07/15/20 12:58 Source: EMS Mode of arrival: EMS History of Present Illness HPI narrative: 69 years old with 40+ pack-year smoker quit 4 years ago recently admitted to [facility] for decompensated right heart failure/cor pulmonale Burgers disease on 05/15/20 discharged to rehab on oxygen 2 L followed by pulmonary services at [facility] discharge from the rehab on 07/13 brought by EMS for increased shortness of breath while in ambulance patient became unresponsive. CPR started ,pvc monitor showed PACs .on arrival pvc monitor showing PACs patient unresponsive pupils fixed dilated coffee colored vomitus in the mouth. No signs of trauma Related Data Home Medications Medication Instructions Recorded Confirmed aspirin 81 mg PO DAILY 05/13/20 05/13/20 Previous Rx's Medication Instructions Recorded amoxicillin-pot clavulanate 875 mg PO Q12H 5 Days #9 tab 05/25/20 doxycycline hyclate 100 mg PO Q12H 5 Days #10 tab 05/25/20 ipratropium-albuterol 3 ml INHALATION RQ4H WHILE AWAKE 05/25/20 30 Days ml prednisone 10 mg PO DAILY 3 Days #3 tab 05/25/20 diltiazem HCl 120 mg 120 mg PO DAILY 30 Days #30 cap 06/30/20 capsule,extended release 24 hr furosemide 40 mg tablet 60 mg PO BID 30 Days #90 tab 06/30/20 umeclidinium 62.5 mcg-vilanterol 1 inh INHALATION DAILY 30 Days #1 07/08/20 25 mcg/actuation powdr for ea inhalation Allergies Allergy/AdvReac Type Severity Reaction Status Date / Time No Known Allergies Allergy Verified 06/30/20 09:02 Review of Systems Review of Systems: Yes Unobtainable due to mental condition [facility], [facility] Past Medical History Medical History Acute respiratory failure with hypoxia Talamantes disease Congestive heart failure Dry gangrene Nonrheumatic tricuspid valve regurgitation Osteomyelitis Peripheral vascular disease Pleural effusion Thromboangiitis obliterans (Buerger's disease) Social History Social History Household Members: Family Housing: Apartment Alcohol intake: former Smoking Status: Former smoker Advance Directives: No Advance Directives Information Provided: No service: No Current occupational status: retired Physical Exam Vital Signs: Vital Signs: Body Mass Index 22.0 Const: Nutritional Appearance: thin HENMT: Other: Coffee colored secretions in the mouth Head: Yes normocephalic and Yes atraumatic Eyes: Pupils: Dilated pupils and Fixed pupils Chest: Chest palpation & inspection: normal palpation of entire chest wall Resp: Other: No spontaneous respiration Cardio: Other: No spontaneous cardiac activity GI: Other: No abdominal distension Extrem: Other: Gangrenous toes, signs of peripheral vascular disease++ Procedures Intubation Time out performed: Yes sedative: none Laryngoscope: fiber optic video scope ET Tube Size: 7.5 ET Tube Uncuffed: Yes Tube Secured Depth (cm): 23 Tube Secured Location: teeth Tube Placement Confirmation: visualized tube passing through cords Intubation Complications: none Additional Comments: Intubated by EMANUEL Angel Cortez MDM - Cardiac Arrest/CPR MDM Narrative Medical decision making narrative: Patient with acute respiratory distress with significant history of COPD and CHF with recent admission came for acute respiratory distress and cardiac arrest CP started patient was intubated CPR continued received 4 injections of EPI no response bedside echo showed asystole no pericardial effusion patient pronounced at 1250 Discharge Plan Discharge Prescriptions: No Action Anoro Ellipta 62.5-25 mcg/actuation blister with device 1 inh inhalation DAILY 30 Days Qty: 1 RF: 6 aspirin 81 mg Tablet 81 mg PO DAILY RF: 0 prednisone 10 mg Tablet 10 mg PO DAILY 3 Days Qty: 3 RF: 0 ipratropium-albuterol 0.5 mg-3 mg(2.5 mg base)/3 mL Solution For Nebulization 3 ml inhalation RQ4H WHILE AWAKE 30 Days RF: 0 doxycycline hyclate 100 mg Tablet 100 mg PO Q12H 5 Days Qty: 10 RF: 0 amoxicillin-pot clavulanate 875-125 mg Tablet 875 mg PO Q12H 5 Days Qty: 9 RF: 0 diltiazem HCl [Cardizem CD] 120 mg capsule,extended release 24hr 120 mg PO DAILY 30 Days Qty: 30 RF: 6 furosemide [Lasix] 40 mg tablet 60 mg PO BID 30 Days Qty: 90 RF: 3
--- NOTE | 2020-07-15 13:38 | PC.NURSE ---
CPR INITIATED BY EMS IN AMBULANCE BAY 1240 - NO PULSE DETECTED, IO PLACED IN R TIBIA 1242 - 1 EPI 1243 - PEA ON MONITOR 1244 - ASYSTOLE, CPR RESUMED 1245 - 1 EPI 1246 - ASYSTOLE ON MONITOR 1247 - 1 EPI 1249 - 1 EPI 1250 - ASYSTOLE, TIME OF PRONOUNCED. [facility] [employer] CONTACTED AT 1335. CASE # [id number], SPOKE WITH GIOVANNY FAMILY HAS NOT YET ARRIVED.
--- NOTE | 2020-07-15 13:57 | PC.NURSE ---
PER EMS, DAUGHTER WAS ON HER WAY, SHE HAS NOT YET ARRIVED. SON SEVERIANO CONTACTED AND INFORMED, [place] [facility] [place]
== END 2020-07-15 15:30 | disposition expired ==
PROVIDERS: Emergency Provider Internal Medicine
DX: I46.9 Cardiac arrest, cause unspecified (principal); Z79.82 Long term (current) use of aspirin; Z79.899 Other long term (current) drug therapy
CPT/HCPCS: 31500; 99283; 99285; J0171